=== PATIENT | female | born 1960 | race Caucasian/White ===

== ENCOUNTER 2017-11-28 16:05 | Emergency (ER) | payer MEDICAID, MEDICARE ==
[2017-11-28 16:31] VITALS: BP 144/79
[2017-11-28] MEDS ORDERED: Lidocaine 5% 700 MG Patch TOP ONE (17:17)
[2017-11-28] MEDS ORDERED: Ketorolac 30 MG/ML SDV IM ONE (17:17)
--- NOTE | 2017-11-28 17:23 | EDM.PDOC ---
ED HPI GENERAL MEDICAL PROBLEM - General Chief Complaint: Lower Extremity Injury/Pain Stated Complaint: HIP HURT Time Seen by Provider: 11/28/17 17:05 Source of Information: Reports: Patient, Old Records, RN History Limitations: Reports: No Limitations - History of Present Illness INITIAL COMMENTS - FREE TEXT/NARRATIVE: 57 yo female here with chronic R hip pain that is followed by Dr. Zendejas. She has a pain contract and is currently on Percocet. Also reports pain in the R knee and R shoulders. Can't take NSAID's due to her Lupus. Is scheduled to see Dr. Zendejas this next week. Is taking more of her Percocet than directed. Used crutches when she was a teenager. Pain is keeping her awake. Had hip X-rays last in , would like new ones today. 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 (see below) (Percocet) - Related Data Allergies Allergy/AdvReac Type Severity Reaction Status Date / Time amoxicillin Allergy Abdominal Verified 11/28/17 16:48 Pain hydroxychloroquine Allergy Cannot Verified 11/28/17 16:48 [From Plaquenil] Remember Penicillins Allergy Abdominal Verified 11/28/17 16:48 Pain Sulfa (Sulfonamide Allergy Cannot Verified 11/28/17 16:48 Antibiotics) Remember azithromycin [From Zithromax] AdvReac Intermediate Diarrhea Verified 11/28/17 16 :48 erythromycin base AdvReac Abdominal Verified 11/28/17 16:48 [Erythromycin Base] Pain Home Meds: Home Meds Acetaminophen/oxyCODONE [Percocet 325-5 MG] 2 tab PO QID #120 tablet 02/22/15 [ Rx] Spironolactone 50 mg PO DAILY 05/17/15 [History] Cyclobenzaprine [Flexeril] 10 mg PO TID 09/11/15 [History] Albuterol [Proventil HFA] 1 - 2 puff INH Q4HR PRN 11/23/17 [History] Fluticasone Propionate [Flonase] 1 spray NASBOTH DAILY PRN 11/23/17 [History] Lidocaine 5% [Lidoderm 5%] 1 patch TOP DAILY #7 patch 11/28/17 [Rx] predniSONE See Taper 11/28/17 [History] Past Medical History Respiratory History: Reports: Bronchitis, Recurrent Gastrointestinal History: Reports: Hepatitis 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: Musculoskeletal History: Reports: Back Pain, Chronic, Osteoporosis, SLE, Other ( See Below) Other Musculoskeletal History: R hip pain Neurological History: Reports: Brain Injury, Other (See Below) Other Neuro History: 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 Endocrine/Metabolic History: Reports: Other (See Below) Other Endocrine/Metabolic History: LUPUS Immunologic History: Reports: SLE Dermatologic History: Reports: None - Infectious Disease History Infectious Disease History: Reports: MRSA Other Infectious Disease History: Lupus induced hepatitis, per patient - Past Surgical History GI Surgical History: Reports: Cholecystectomy Social & Family History - Family History Cardiac: Reports: CAD, Heart Failure - Tobacco Use Smoking Status *Q: Never Smoker - Caffeine Use Caffeine Use: Reports: Soda Review of Systems - Review of Systems Review Of Systems: See Below Constitutional: Reports: No Symptoms Eyes: Reports: No Symptoms Ears: Reports: No Symptoms Nose: Reports: No Symptoms Mouth/Throat: Reports: No Symptoms Respiratory: Reports: No Symptoms GI/Abdominal: Reports: No Symptoms Musculoskeletal: Reports: Joint Pain (R knee and R shoulder, R hip). Denies: Joint Swelling Skin: Reports: No Symptoms Neurological: Reports: No Symptoms ED EXAM, GENERAL - Physical Exam Exam: See Below Exam Limited By: No Limitations General Appearance: Alert, WD/WN, No Apparent Distress Eye Exam: Bilateral Eye: Normal Inspection Ears: Normal External Exam, Normal Canal, Hearing Grossly Normal Ear Exam: Bilateral Ear: Auricle Normal, Canal Normal Nose: Normal Inspection, Normal Mucosa, No Blood Throat/Mouth: Normal Inspection, Normal Lips, Normal Voice, No Airway Compromise Head: Atraumatic, Normocephalic Neck: Normal Inspection Respiratory/Chest: No Respiratory Distress, Lungs Clear, Normal Breath Sounds Cardiovascular: Regular Rate, Rhythm Extremities: Normal Inspection, No Pedal Edema, Limited Range of Motion (R hip) . No: Pedal Edema, Increased Warmth, Redness Neurological: Alert, Oriented, CN II-XII Intact, Normal Cognition, No Motor/ Sensory Deficits Psychiatric: Normal Affect, Normal Mood Skin Exam: Warm, Dry, Intact, Normal Color, No Rash Course - Vital Signs Last Recorded V/S: Last Vital Signs Temp 37.3 C 11/28/17 16:56 Pulse 95 11/28/17 16:56 Resp 18 11/28/17 16:56 BP 144/79 H 11/28/17 16:56 Pulse Ox 96 11/28/17 16:56 - Orders/Labs/Meds Orders: Active Orders 24 hr Category Date Time Status Hip Min 2V or 3V w Pelvis Rt [CR] Stat Exams 11/28/17 17:45 Ordered DME for Discharge [COMM] Routine Oth 11/28/17 17:17 Ordered Meds: Medications Discontinued Medications Generic Name Dose Route Start Last Admin Trade Name Julio C PRN Reason Stop Dose Admin Ketorolac Tromethamine 30 mg 11/28/17 17:17 11/28/17 17:46 Toradol IM 11/28/17 17:18 30 mg ONETIME ONE Administration Lidocaine 700 mg 11/28/17 17:17 11/28/17 17:46 Lidoderm 5% TOP 11/28/17 17:18 700 mg ONETIME ONE Administration - Radiology Interpretation Free Text/Narrative:: R hip X-ray-degen changes. Departure - Departure Time of Disposition: 18:09 Disposition: Home, Self-Care 01 Condition: Good Clinical Impression: Hip pain, right, Arthritis of right hip - Discharge Information *PRESCRIPTION DRUG MONITORING PROGRAM REVIEWED*: No *COPY OF PRESCRIPTION DRUG MONITORING REPORT IN PATIENT MAYA: No Prescriptions: Lidocaine 5% [Lidoderm 5%] 1 patch TOP DAILY #7 patch Instructions: Osteoarthritis Referrals: Washington Zendejas MD [Primary Care Provider] - Forms: ED Department Discharge Additional Instructions: See orthopedics again to discuss hip replacement. Take Percocet and/or Lidoderm to treat your pain. See your doctor BARTOLO to discuss your pains. - My Orders Last 24 Hours: My Active Orders 11/28/17 17:17 DME for Discharge [COMM] Routine 11/28/17 17:45 Hip Min 2V or 3V w Pelvis Rt [CR] Stat - Assessment/Plan Last 24 Hours: My Active Orders 11/28/17 17:17 DME for Discharge [COMM] Routine 11/28/17 17:45 Hip Min 2V or 3V w Pelvis Rt [CR] Stat
--- NOTE | 2017-11-30 10:04 | CR ---
Hip Min 2V or 3V w Pelvis Rt CLINICAL HISTORY: Increasing hip pain FINDINGS: There is moderate deformity of the right the femoral head this is progressed significantly since the 2017 study. There is some acetabular spurring and some articular sclerosis also increased s iron prior study. Impression: Progressive deformity of the right femoral head. This is likely related to previous avascular necrosis and secondary cortical and subcortical collapse . Secondary osteoarthritic changes in the acetabulum also increased since prior study
== END 2017-11-28 18:59 | disposition home or self-care (01) ==
LOC: JP.ED 16:05
DX: M16.11 Unilateral primary osteoarthritis, right hip (principal); Z88.0 Allergy status to penicillin; Z88.2 Allergy status to sulfonamides; Z88.1 Allergy status to other antibiotic agents
CPT/HCPCS: 73502; 96372; 99284; A9270; J1885

== ENCOUNTER 2018-05-20 07:30 | Inpatient (IN) | payer MEDICARE ==
[2018-05-20] MEDS ORDERED: Scopolamine 1.5 MG Transdermal Patch TOP ONE (08:45)
[2018-05-20] MEDS ORDERED: Gabapentin 300 MG Cap PO ONE (08:45)
[2018-05-20] MEDS ORDERED: Acetaminophen 500 MG Tab PO ONE (09:00)
[2018-05-20] MEDS ORDERED: Albuterol/Ipratropium 3.0-0.5 MG/3 ML Neb Soln NEB ONE (09:28)
[2018-05-20] MEDS ORDERED: fentaNYL 100 MCG/2 ML SDV ONE (09:40)
[2018-05-20] MEDS ORDERED: Midazolam 1 MG/ML 2 ML SDV ONE ×2 (09:40→10:54)
[2018-05-20] MEDS ORDERED: Propofol 200 MG/20 ML SDV ONE (09:40)
[2018-05-20] MEDS ORDERED: ceFAZolin 1 GM in Premix Bag 1 BAG IV ONE (10:00)
[2018-05-20] MEDS: Sodium Chloride 0.9% 1,000 ML IV SCH ×2 (10:01→18:12)
[2018-05-20] MEDS ORDERED: Povidone-Iodine 10% Soln 118.25 ML Bottle ONE (10:16)
[2018-05-20] MEDS: Tranexamic Acid 550 MG in Sodium Chloride 0.9% 50 ML IV SCH ×2 (10:35→11:58)
[2018-05-20] MEDS ORDERED: Phenylephrine 1% 10 MG/ML SDV ONE (10:42)
[2018-05-20] MEDS ORDERED: Sodium Chloride 0.9% 10 ML ONE (10:42)
[2018-05-20] MEDS ORDERED: Lactated Ringers 1,000 ML ONE (10:54)
[2018-05-20] MEDS ORDERED: Acetaminophen/HYDROcodone 325-5 MG Tab PO PRN (11:57)
[2018-05-20] MEDS ORDERED: Acetaminophen/oxyCODONE 325-5 MG Tab PO PRN (12:12)
[2018-05-20] MEDS ORDERED: Fluticasone Propionate Nasal Spray 16 GM Bottle NASBOTH PRN (12:12)
[2018-05-20] MEDS ORDERED: Morphine 2 MG/ML Syringe IVPUSH PRN ×2 (12:19→12:41)
[2018-05-20] MEDS: Acetaminophen/oxyCODONE 325-5 MG Tab PO PRN ×2 (13:04→20:02)
[2018-05-20] MEDS: Cyclobenzaprine 10 MG Tab PO SCH ×2 (13:06→21:35)
[2018-05-20] MEDS ORDERED: ceFAZolin 1 GM in Premix Bag 1 BAG IV SCH (14:00)
[2018-05-20] MEDS ORDERED: Cyclobenzaprine 10 MG Tab PO SCH (14:00)
[2018-05-20] MEDS: Acetaminophen/HYDROcodone 325-5 MG Tab PO PRN ×3 (15:08→23:14)
[2018-05-20] MEDS: ceFAZolin 1 GM in Premix Bag 1 BAG IV SCH ×2 (16:41→23:15)
--- NOTE | 2018-05-20 17:35 | CRLCR ---
Indication: Postop. Technique: An AP view of the pelvis was obtained. Comparison: May 06, 2018. Findings: Postoperative changes of right hip arthroplasty are identified. Degenerative changes of the makah left hip bursa seen. Impression: Postoperative changes of a right hip arthroplasty. Dictated by Mckayla Boykin MD @ May 20 2018 5:32PM Signed by Dr. Mckayla Boykin @ May 20 2018 5:33PM
[2018-05-21] MEDS: Acetaminophen/oxyCODONE 325-5 MG Tab PO PRN ×4 (02:18→20:00)
[2018-05-21] MEDS: Sodium Chloride 0.9% 1,000 ML IV SCH (04:17)
[2018-05-21] MEDS: Acetaminophen/HYDROcodone 325-5 MG Tab PO PRN ×4 (05:28→19:24)
[2018-05-21] MEDS: ceFAZolin 1 GM in Premix Bag 1 BAG IV SCH ×2 (07:27→15:47)
[2018-05-21] MEDS: Cyclobenzaprine 10 MG Tab PO SCH ×4 (07:28→20:01)
[2018-05-21] MEDS ORDERED: Enoxaparin 30 MG/0.3 ML Syringe SUBCUT SCH (09:00)
[2018-05-21] MEDS: Enoxaparin 30 MG/0.3 ML Syringe SUBCUT SCH (09:06)
--- NOTE | 2018-05-21 10:23 | PCM.OPNOTE ---
- General Post-Op/Procedure Note Date of Surgery/Procedure: 05/20/18 Operative Procedure(s): Right total hip arthroplasty Findings: AVN R femoral head with deformity and articular flap Pre Op Diagnosis: AVN right femoral head. 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 She has had hip pain for approximately 1 year. X-ray 6 months ago revealed significant avascular necrosis with collapse of the superior femoral head. New X-rays show some progression of this. She has a deformity of the head and acetabulum due to long-standing weight bearing on the collapsed head. Right leg is approximately 1-1/2 cm shorter than the left. She now presents for right total hip arthroplasty. Risks, benefits and potential complications were discussed and she agrees to proceed. Procedure: After administration of IV antibiotic and epidural anesthesia the patient was placed in the lateral decubitus position and secured with the pegboard positioner. The right hip and leg were then prepped and draped in a sterile fashion. Incision was made over the greater trochanter carried down through the subcutaneous tissues and hemostasis obtained with electrocautery. The IT band was split in line with its fibers and retracted using the Charnley retractor. The leg was internally rotated and the short external rotators were taken off the greater trochanter with electrocautery. An Ethibond stitch was placed in the piriformis and used to retract medially. The capsule was then entered in a T fashion. Femoral head was then dislocated from the acetabulum. This showed severe deformity with collapse and a flap of articular cartilage superior. Retractors were placed about the acetabulum. Superior acetabular labrum was resected. The inferior stem was calcified and partially removed with a rongeur. Soft tissues were cleared from the central portion of the acetabulum using electrocautery and rongeur. Acetabulum was then sequentially reamed to a size 50 cup. The hip was irrigated and a Praveen continuum size 50 cup was press-fit into place with excellent purchase. Additional fixation was obtained with an acetabular screw. This was irrigated and a liner was then positioned into place. Attention was returned to the femur. A box osteotome was used to remove the lateral femoral neck cortex. An awl was placed down the canal. The canal was then sequentially broached to a size 10. A #10 M/L taper stem was then press- fit into place. Trial reduction was done with a size 0 and +3.5 mm neck length. The +3.5 provided good stability in flexion abduction internal rotation and restored limb length. Trial was removed. The taper was cleaned and the final femoral head was tapped onto the taper. The hip was reduced. Hip was again taken through range of motion and found to be stable. It was irrigated with a dilute solution of Betadine and saline. The capsule was then closed with #1 Ethibond. Short external rotators reattached to the greater trochanter. IT band was then closed in a running fashion and skin was then closed with 2-0 Vicryl and running 3-0 Monocryl. Steri-Strips were applied. Sterile dressing was then placed. Patient tolerated the procedure very well, there were no complications, she taken from the operating room in stable condition
--- NOTE | 2018-05-21 15:53 | PCM.CONS ---
H&P History of Present Illness - General Date of Service: 05/21/18 Admit Problem/Dx: Admission Diagnosis/Problem Admission Diagnosis/Problem Avascular necrosis of femoral head Source of Information: Patient, Provider, RN Notes Reviewed History Limitations: Reports: No Limitations - History of Present Illness Initial Comments - Free Text/Narative: Ms. Brownlee is a 57-year-old woman who I been asked to see by Dr. Nunez or evaluation of postoperative fever. She is status post total right hip arthroplasty which was done yesterday. This morning is been noted to have temperature elevation up to 101.8. Reports that she is feeling somewhat weak and lethargic but has no other specific symptoms of infection. Wound was reviewed today by Dr. Nunez and was showing no obvious evidence of infection. Urinalysis was obtained and is entirely normal. Chest x-ray is pending but she currently denies significant symptoms of shortness of breath, cough, or sputum production. She does have a known underlying history of reactive airway disease. right hip Pain Score (Numeric/FACES): 8 - Related Data Allergies/Adverse Reactions: Allergies Allergy/AdvReac Type Severity Reaction Status Date / Time amoxicillin Allergy Abdominal Verified 01/13/18 12:37 Pain hydroxychloroquine Allergy Cannot Verified 01/13/18 12:37 [From Plaquenil] Remember latex Allergy Rash Verified 05/20/18 09:41 Penicillins Allergy Abdominal Verified 01/13/18 12:37 Pain Sulfa (Sulfonamide Allergy Cannot Verified 01/13/18 12:37 Antibiotics) Remember azithromycin [From Zithromax] AdvReac Intermediate Diarrhea Verified 01/13/18 12 :37 erythromycin base AdvReac Abdominal Verified 01/13/18 12:37 [Erythromycin Base] Pain Home Medications: Home Meds Acetaminophen/oxyCODONE [Percocet 325-5 MG] 2 tab PO QID #120 tablet 02/22/15 [ Rx] Cyclobenzaprine [Flexeril] 10 mg PO TID 09/11/15 [History] Albuterol [Proventil HFA] 1 - 2 puff INH Q4HR PRN 11/23/17 [History] Fluticasone Propionate [Flonase] 2 spray NASBOTH DAILY PRN 11/23/17 [History] Lidocaine 5% [Lidoderm 5%] 1 patch TOP DAILY #7 patch 11/28/17 [Rx] Past Medical History Respiratory History: Reports: Bronchitis, Recurrent Gastrointestinal History: Reports: 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: Musculoskeletal History: Reports: Back Pain, Chronic, Osteoporosis, SLE, Other ( See Below) Other Musculoskeletal History: R hip pain right shoulder pain Neurological History: Reports: Brain Injury, Other (See Below) Other Neuro History: 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 Endocrine/Metabolic History: Reports: Other (See Below) Other Endocrine/Metabolic History: LUPUS Hematologic History: Reports: Blood Transfusion(s) Immunologic History: Reports: SLE Dermatologic History: Reports: None - Infectious Disease History Infectious Disease History: Reports: Chicken Pox, MRSA Other Infectious Disease History: Lupus induced hepatitis, per patient - Past Surgical History Respiratory Surgical History: Reports: None GI Surgical History: Reports: Cholecystectomy Neurological Surgical History: Reports: None Musculoskeletal Surgical History: Reports: None Social & Family History - Family History Family Medical History: Noncontributory Cardiac: Reports: CAD, Heart Failure - Tobacco Use Smoking Status *Q: Former Smoker Used Tobacco, but Quit: Yes Month/Year Tobacco Last Used: 1989 - Caffeine Use Caffeine Use: Reports: Coffee - Recreational Drug Use Recreational Drug Use: No H&P Review of Systems - Review of Systems: Review Of Systems: See Below General: Reports: Fever, Weakness. Denies: Chills, Night Sweats, Diaphoresis HEENT: Reports: No Symptoms Pulmonary: Reports: No Symptoms Cardiovascular: Reports: No Symptoms Gastrointestinal: Reports: No Symptoms Genitourinary: Reports: No Symptoms Musculoskeletal: Reports: Other (Right hip pain secondary to surgery) Skin: Reports: No Symptoms Psychiatric: Reports: No Symptoms Neurological: Reports: No Symptoms Hematologic/Lymphatic: Reports: No Symptoms Immunologic: Reports: No Symptoms Exam - Exam Exam: See Below - Vital Signs Vital Signs: Last Vital Signs Temp 101.6 F H 05/21/18 14:18 Pulse 104 H 05/21/18 14:18 Resp 18 05/21/18 14:18 BP 114/67 05/21/18 14:18 Pulse Ox 97 05/21/18 14:18 Weight: 131 lb 15.993 oz - Exam Quality Assessment: DVT Prophylaxis General: Alert, Oriented, Cooperative, Mild Distress Neck: Supple, Trachea Midline, +2 Carotid Pulse wo Bruit Lungs: Clear to Auscultation, Normal Respiratory Effort Cardiovascular: Regular Rate, Regular Rhythm, Normal S1, Normal S2 GI/Abdominal Exam: Soft, Non-Tender, No Organomegaly, No Distention Back Exam: Normal Inspection, Full Range of Motion Extremities: No Pedal Edema, Other (Surgical dressing in place over the right hip) Skin: Warm, Dry Neuro Extensive - Mental Status: Alert, Oriented x3, Normal Mood/Affect, Normal Cognition, Memory Intact - Patient Data Lab Results Last 24 hrs: Laboratory Results - last 24 hr 05/21/18 05/21/18 Range/Units 05:39 12:14 WBC 8.7 (4.5-11.0) K/uL RBC 3.91 (3.30-5.50) M/uL Hgb 11.7 L D (12.0-15.0) g/dL Hct 38.0 (36.0-48.0) % MCV 97 (80-98) fL MCH 30 (27-31) pg MCHC 31 L (32-36) % Plt Count 216 (150-400) K/uL Urine Color Yellow Urine Appearance Clear Urine pH 6.0 (4.5-8.0) Ur Specific [place] 1.005 L (1.008-1.030) Urine Protein Negative (NEGATIVE) mg/dL Urine Glucose (UA) Negative (NEGATIVE) mg/dL Urine Ketones Negative (NEGATIVE) mg/dL Urine Occult Blood Negative (NEGATIVE) Urine Nitrite Negative (NEGATIVE) Urine Bilirubin Negative (NEGATIVE) Urine Urobilinogen Normal (NORMAL) mg/dL Ur Leukocyte Esterase Negative (NEGATIVE) Urine RBC Not seen (0-5) Urine WBC Not seen (0-5) Ur Epithelial Cells Not seen Amorphous Sediment Few Urine Bacteria Not seen Urine Mucus Not seen Result Diagrams: 05/21/18 05:39 Consult PN Assessment/Plan Procedures: Procedures AGENT NOS ASSAY W/OPTIC (04/28/15) ASSAY OF CK (CPK) (02/15/15) ASSAY OF CREATININE (09/26/15) ASSAY OF FOLIC ACID RBC (01/25/14) ASSAY OF FOLIC ACID SERUM (02/15/15) ASSAY OF LACTIC ACID (05/17/15) ASSAY OF LIPASE (04/28/15) ASSAY OF MAGNESIUM (04/28/15) ASSAY OF SERUM POTASSIUM (02/27/15) ASSAY OF TROPONIN QUANT (02/15/15) ASSAY OF VANCOMYCIN (02/15/15) BLOOD CULTURE FOR BACTERIA (02/15/15) BLOOD GASES ANY COMBINATION (02/15/15) BLOOD TRANSFUSION SERVICE (02/15/15) BLOOD TYPING SEROLOGIC ABO (05/18/18) BLOOD TYPING SEROLOGIC RH(D) (05/18/18) C DIFF AMPLIFIED PROBE (04/28/15) C-REACTIVE PROTEIN (01/06/16) CHEST X-RAY 1 VIEW FRONTAL (02/15/15) CHEST X-RAY 2VW FRONTAL&LATL (05/17/15) COMPATIBILITY TEST ANTIGLOB (02/15/15) COMPATIBILITY TEST SPIN (02/15/15) COMPLETE CBC AUTOMATED (05/18/18) COMPLETE CBC W/AUTO DIFF WBC (01/06/16) COMPREHEN METABOLIC PANEL (05/18/18) CT ABD & PELV W/CONTRAST (09/26/15) CT PELVIS W/DYE (03/12/15) CULTURE AEROBIC IDENTIFY (02/15/15) CULTURE SCREEN ONLY (05/17/15) DRAIN/INJ JOINT/BURSA W/O US (01/13/18) ELECTROCARDIOGRAM REPORT (02/15/15) ELECTROCARDIOGRAM TRACING (02/15/15) EMERGENCY DEPT VISIT (11/28/17) EMERGENCY DEPT VISIT (05/17/15) EMERGENCY DEPT VISIT (04/28/15) EMERGENCY DEPT VISIT (04/28/15) EMERGENCY DEPT VISIT (03/01/14) EMERGENCY DEPT VISIT (03/01/14) EMERGENCY DEPT VISIT (01/25/14) HEMOGLOBIN (04/28/15) HYDRATE IV INFUSION ADD-ON (04/28/15) HYDRATION IV INFUSION INIT (01/06/16) IIV4 VACC NO PRSV 0.5 ML IM (02/15/15) INFLUENZA ASSAY W/OPTIC (05/17/15) INITIAL OBSERVATION CARE (04/28/15) LACTATE (LD) (LDH) ENZYME (02/15/15) LEUKOCYTE ASSESSMENT FECAL (02/15/15) MEASURE BLOOD OXYGEN LEVEL (02/15/15) METABOLIC PANEL TOTAL CA (05/17/15) MICROBE SUSCEPTIBLE PATRICIA (02/15/15) NEEDLE LOCALIZATION BY XRAY (01/13/18) OBSERVATION CARE DISCHARGE (04/28/15) OCCULT BLD FECES 1-3 TESTS (02/15/15) OT EVALUATION (02/15/15) PROTHROMBIN TIME (01/25/14) PT EVALUATION (05/17/15) RBC ANTIBODY SCREEN (05/18/18) RBC SED RATE NONAUTOMATED (04/28/15) ROUTINE VENIPUNCTURE (05/18/18) STOOL CULTR AEROBIC BACT EA (04/28/15) STREP A AG IA (05/17/15) SUBSEQUENT OBSERVATION CARE (04/28/15) THER/PROPH/DIAG INJ IV PUSH (09/11/15) THER/PROPH/DIAG INJ SC/IM (11/28/17) THER/PROPH/DIAG IV INF ADDON (01/25/14) THER/PROPH/DIAG IV INF INIT (01/25/14) THERAPEUTIC ACTIVITIES (05/17/15) THERAPEUTIC EXERCISES (05/17/15) THROMBOPLASTIN TIME PARTIAL (01/25/14) TX/PRO/DX INJ NEW DRUG ADDON (05/17/15) TX/PRO/DX INJ SAME DRUG WEIGH BOX TENDER (05/17/15) URINALYSIS AUTO W/O SCOPE (05/18/18) URINALYSIS AUTO W/SCOPE (05/17/15) URINE BACTERIA CULTURE (01/25/14) URINE CULTURE/COLONY COUNT (02/15/15) US EXAM ABDO BACK WALL GERARD (02/15/15) VITAMIN B-12 (02/15/15) WITHDRAWAL OF ARTERIAL BLOOD (02/15/15) X-RAY EXAM HIP UNI 2-3 VIEWS (05/06/18) X-RAY EXAM OF SHOULDER (05/06/18) X-RAY EXAM RIBS UNI 2 VIEWS (01/25/14) Problem List Initiated/Reviewed/Updated: Yes My Orders Last 24 Hours: My Active Orders 05/21/18 15:46 Chest 2V [CR] Urgent Plan: ASSESSMENT AND RECOMMENDATIONS POSTOPERATIVE FEVER-likely secondary to atelectasis, no obvious source of infection identified on evaluation thus far. White blood cell count this morning was within normal range and vital signs have otherwise been stable. Urinalysis is clear with no evidence of underlying infection. No obvious source of infection identified on history or physical examination. -Aggressive use of incentive spirometry -Monitor closely for recurrent fever or other evidence of infection -Chest x-ray pending STATUS POST TOTAL RIGHT HIP ARTHROPLASTY -Postoperative care per Dr. Nunez Requesting Provider: Dr. Nunez Date Consult Requested: 05/21/18 Reason for Consult: Postoperative fever Patient History Reviewed: Yes Admission H&P Reviewed: Yes
--- NOTE | 2018-05-21 17:56 | CRLCR ---
INDICATION: Postoperative fever TECHNIQUE: Chest 2 views. COMPARISON: None FINDINGS: Cardiovascular and mediastinum: Heart size and vasculature are normal in caliber and appearance. Mediastinum is within normal limits. Lungs and pleural spaces: Lungs are clear. No sign of infiltrate or mass. No sign of pleural effusion. No pneumothorax. Bones and soft tissues: No significant findings. Surgical clips noted in the right upper quadrant IMPRESSION: No sign of acute disease. Dictated by Mela Bruno MD @ May 21 2018 5:53PM Signed by Dr. Mela Bruno @ May 21 2018 5:54PM
[2018-05-21] MEDS ORDERED: Ibuprofen 400 MG Tab PO ONE (19:31)
--- NOTE | 2018-05-21 20:08 | PCM.SN ---
- Free Text/Narrative Note: time: 19:55, request for evaluation Mrs. Brownlee continues to have fever. S: Mrs. Brownlee reports worsen fever, generalized pain and bones ache. has Lupus, Right Hip surgery, rigth total hip. O: VS T 102.3 P 104 RR 16 B/P O2 sat 96% on room air Frail appearing female in no acute distress chest; lungs clear Abdomen; soft, bowel sounds positive, non-tender right Hip: dressing is dry, clean and intact extremities: no edema. generalized pain to touch or any movement A: fever. unknown source P: chest Xray at 5Pm; no infiltrates or acute disease will order labs: CBC, CMP, LACTIC ACID, CRP, BCX2 Meds: IV Levaquin 750mg every 24 hour decrease time interval Oxycodone 10mg every 4 hours. follow up after labs are completed.
[2018-05-21] MEDS: Levofloxacin/Dextrose 5%-Water 750 MG in Premix Bag 1 BAG IV SCH (21:19)
[2018-05-22] MEDS: Acetaminophen/oxyCODONE 325-5 MG Tab PO PRN ×3 (00:14→10:00)
[2018-05-22] MEDS: ceFAZolin 1 GM in Premix Bag 1 BAG IV SCH ×2 (00:14→08:34)
[2018-05-22] MEDS: Acetaminophen/HYDROcodone 325-5 MG Tab PO PRN ×2 (02:26→08:35)
[2018-05-22] MEDS: Sodium Chloride 0.9% 1,000 ML IV SCH (04:18)
[2018-05-22] MEDS: Cyclobenzaprine 10 MG Tab PO SCH ×3 (08:34→20:40)
[2018-05-22] MEDS: Enoxaparin 30 MG/0.3 ML Syringe SUBCUT SCH (08:34)
[2018-05-22] MEDS: Potassium Chloride 20 MEQ, Lidocaine 1% 2 ML in Sodium Chloride 0.9% 100 ML IV SCH ×2 (10:00→12:24)
[2018-05-22] MEDS ORDERED: Potassium Chloride 20 MEQ in Premix Bag 1 BAG IV SCH (10:00)
[2018-05-22] MEDS ORDERED: Potassium Chloride 20 MEQ Tab.ER PO ONE ×2 (10:00→14:00)
--- NOTE | 2018-05-22 13:35 | PCM.CONSN ---
- General Info Date of Service: 05/22/18 Subjective Update: Ms. Brownlee feels improved this morning with more energy and improved appetite. She is been up and walking with use of walker, reports pain control has been adequate. She did have recurrent temperature elevation last night, blood cultures were obtained, evaluation showed no obvious source of infection. She was empirically started on IV levofloxacin and has had no recurrent temperature elevations since then. Functional Status: Reports: Tolerating Diet, Ambulating, Urinating - Review of Systems General: Reports: Weakness. Denies: Fever, Chills Pulmonary: Reports: No Symptoms Cardiovascular: Reports: No Symptoms Gastrointestinal: Reports: No Symptoms Genitourinary: Reports: No Symptoms - Patient Data Vitals - Most Recent: Last Vital Signs Temp 98.5 F 05/22/18 10:40 Pulse 97 05/22/18 10:40 Resp 18 05/22/18 10:40 BP 121/58 L 05/22/18 10:40 Pulse Ox 100 05/22/18 10:40 Weight - Most Recent: 131 lb 15.993 oz I&O - Last 24 Hours: Intake & Output 05/21/18 05/22/18 05/22/18 22:59 06:59 14:59 Intake Total 1517 1026 400 Balance 1517 1026 400 Lab Results Last 24 Hours: Laboratory Results - last 24 hr 05/21/18 05/21/18 05/21/18 Range/Units 20:36 20:36 20:36 WBC 12.0 H (4.5-11.0) K/uL RBC 3.83 (3.30-5.50) M/uL Hgb 11.7 L (12.0-15.0) g/dL Hct 37.1 (36.0-48.0) % MCV 97 (80-98) fL MCH 31 (27-31) pg MCHC 32 (32-36) % Plt Count 179 (150-400) K/uL Neut % (Auto) 76 H (36-66) % Lymph % (Auto) 14 L (24-44) % [place] % (Auto) 10 H (2-6) % Eos % (Auto) 0 L (2-4) % Baso % (Auto) 0 (0-1) % Sodium 141 (140-148) mmol/L Potassium 3.6 (3.6-5.2) mmol/L Chloride 105 (100-108) mmol/L Carbon Dioxide 27 (21-32) mmol/L Anion Gap 9.4 (5.0-14.0) mmol/L BUN 6 L (7-18) mg/dL Creatinine 0.7 (0.6-1.0) mg/dL Est Cr Clr Drug Dosing 80.62 mL/min Estimated GFR (MDRD) > 60 (>60) Glucose 135 H (74-106) mg/dL Lactic Acid (0.4-2.0) mmol/L Calcium 8.6 (8.5-10.1) mg/dL Total Bilirubin 0.2 (0.2-1.0) mg/dL AST 18 (15-37) U/L ALT 18 (12-78) U/L Alkaline Phosphatase 64 (46-116) U/L C-Reactive Protein 12.08 H (0.0-0.3) mg/dL Total Protein 5.4 L (6.4-8.2) g/dL Albumin 2.6 L (3.4-5.0) g/dL Globulin 2.8 (2.3-3.5) g/dL Albumin/Globulin Ratio 0.9 L (1.2-2.2) 05/21/18 05/22/18 05/22/18 Range/Units 20:36 08:47 08:47 WBC 8.1 (4.5-11.0) K/uL RBC 3.86 (3.30-5.50) M/uL Hgb 11.9 L (12.0-15.0) g/dL Hct 38.0 (36.0-48.0) % MCV 98 (80-98) fL MCH 31 (27-31) pg MCHC 31 L (32-36) % Plt Count 154 (150-400) K/uL Neut % (Auto) 76 H (36-66) % Lymph % (Auto) 13 L (24-44) % [place] % (Auto) 10 H (2-6) % Eos % (Auto) 1 L (2-4) % Baso % (Auto) 0 (0-1) % Sodium 143 (140-148) mmol/L Potassium 2.8 L* (3.6-5.2) mmol/L Chloride 106 (100-108) mmol/L Carbon Dioxide 26 (21-32) mmol/L Anion Gap 13.8 (5.0-14.0) mmol/L BUN 7 (7-18) mg/dL Creatinine 0.7 (0.6-1.0) mg/dL Est Cr Clr Drug Dosing 80.62 mL/min Estimated GFR (MDRD) > 60 (>60) Glucose 87 (74-106) mg/dL Lactic Acid 1.6 (0.4-2.0) mmol/L Calcium 8.5 (8.5-10.1) mg/dL Total Bilirubin (0.2-1.0) mg/dL AST (15-37) U/L ALT (12-78) U/L Alkaline Phosphatase (46-116) U/L C-Reactive Protein (0.0-0.3) mg/dL Total Protein (6.4-8.2) g/dL Albumin (3.4-5.0) g/dL Globulin (2.3-3.5) g/dL Albumin/Globulin Ratio (1.2-2.2) Med Orders - Current: Current Medications Acetaminophen (Tylenol) 650 mg PO Q4H PRN PRN Reason: Pain/Fever Hydrocodone Bitart/Acetaminophen ([place] 325-5 Mg) 1 tab PO Q3H PRN PRN Reason: FOR MODERATE PAIN Last Admin: 05/22/18 08:35 Dose: 1 tab Cyclobenzaprine HCl (Flexeril) 10 mg PO TID [facility] Last Admin: 05/22/18 08:34 Dose: 10 mg Docusate Sodium (Colace) 100 mg PO BID PRN PRN Reason: Constipation Enoxaparin Sodium (Lovenox) 30 mg SUBCUT DAILY [facility] Last Admin: 05/22/18 08:34 Dose: 30 mg Fluticasone Propionate (Flonase) 0 gm NASBOTH DAILY PRN PRN Reason: Allergies Sodium Chloride (Normal Saline) 1,000 mls @ 100 mls/hr IV ASDIRECTED [facility] Last Admin: 05/22/18 04:18 Dose: 100 mls/hr Levofloxacin/Dextrose 750 mg/ (Premix) 150 mls @ 100 mls/hr IV Q24H [facility] Last Admin: 05/21/18 21:19 Dose: 100 mls/hr Potassium Chloride 20 meq/Lidocaine HCl 2 ml/ Sodium Chloride 112 mls @ 56 mls/ hr IV Q2H [facility] Stop: 05/22/18 13:59 Last Admin: 05/22/18 12:24 Dose: 56 mls/hr Morphine Sulfate (Morphine) 2 mg IVPUSH Q4H PRN PRN Reason: Pain (severe 7-10) Oxycodone/Acetaminophen (Percocet 325-5 Mg) 2 tab PO Q4H PRN PRN Reason: Pain (severe 7-10) Last Admin: 05/22/18 10:00 Dose: 2 tab Potassium Chloride (Klor-Con M20) 40 meq PO ONETIME ONE Stop: 05/22/18 13:31 Discontinued Medications Acetaminophen (Tylenol Extra Strength) 1,000 mg PO ONETIME ONE Stop: 05/20/18 09:01 Last Admin: 05/20/18 09:25 Dose: 1,000 mg Hydrocodone Bitart/Acetaminophen ([place] 325-5 Mg) 1 tab PO Q3H PRN PRN Reason: Pain Albuterol/Ipratropium (Duoneb 3.0-0.5 Mg/3 Ml) 3 ml NEB ONETIME ONE Stop: 05/20/18 09:29 Last Admin: 05/20/18 10:05 Dose: 3 ml Cyclobenzaprine HCl (Flexeril) 10 mg PO TID [facility] Enoxaparin Sodium (Lovenox) 30 mg SUBCUT DAILY [facility] Fentanyl (Sublimaze) Confirm Administered Dose 100 mcg .ROUTE .STK-MED ONE Stop: 05/20/18 09:41 Gabapentin (Neurontin) 300 mg PO ONETIME ONE Stop: 05/20/18 08:46 Last Admin: 05/20/18 09:25 Dose: 300 mg Cefazolin Sodium/Dextrose 1 gm (/ Premix) 50 mls @ 100 mls/hr IV ONETIME ONE Stop: 05/20/18 10:29 Last Admin: 05/20/18 10:11 Dose: 100 mls/hr Tranexamic Acid 550 mg/ Sodium (Chloride) 55.5 mls @ 222 mls/hr IV Q3H [facility] Stop: 05/20/18 12:44 Last Admin: 05/20/18 11:58 Dose: 222 mls/hr Sodium Chloride (Normal Saline) Confirm Administered Dose 10 mls @ as directed .ROUTE .STK-MED ONE Stop: 05/20/18 10:43 Lactated Ringer's (Ringers, Lactated) Confirm Administered Dose 1,000 mls @ as directed .ROUTE .STK-MED ONE Stop: 05/20/18 10:55 Cefazolin Sodium/Dextrose 1 gm (/ Premix) 50 mls @ 100 mls/hr IV Q8HR [facility] Stop: 05/22/18 06:29 Cefazolin Sodium/Dextrose 1 gm (/ Premix) 50 mls @ 100 mls/hr IV Q8H [facility] Stop: 05/22/18 08:29 Last Admin: 05/22/18 08:34 Dose: 100 mls/hr Ibuprofen (Motrin) 400 mg PO ONETIME ONE Stop: 05/21/18 19:32 Last Admin: 05/21/18 20:00 Dose: 400 mg Midazolam HCl (Versed 1 Mg/Ml) Confirm Administered Dose 2 mg .ROUTE .STK-MED ONE Stop: 05/20/18 09:41 Midazolam HCl (Versed 1 Mg/Ml) Confirm Administered Dose 2 mg .ROUTE .STK-MED ONE Stop: 05/20/18 10:55 Morphine Sulfate (Morphine) 2 mg IVPUSH Q4H PRN PRN Reason: Pain (severe 7-10) Oxycodone/Acetaminophen (Percocet 325-5 Mg) 2 tab PO Q6H PRN PRN Reason: Pain (severe 7-10) Oxycodone/Acetaminophen (Percocet 325-5 Mg) 2 tab PO Q6H PRN PRN Reason: Pain (severe 7-10) Last Admin: 05/21/18 20:00 Dose: 2 tab Phenylephrine HCl (Emanuel-Synephrine) Confirm Administered Dose 10 mg .ROUTE .STK- MED ONE Stop: 05/20/18 10:43 Potassium Chloride (Klor-Con M20) 40 meq PO ONETIME ONE Stop: 05/22/18 10:01 Last Admin: 05/22/18 10:00 Dose: 40 meq Povidone Iodine (Betadine 10% Soln) Confirm Administered Dose 1 ml .ROUTE .STK- MED ONE Stop: 05/20/18 10:17 Last Admin: 05/20/18 10:54 Dose: 40 ml Propofol (Diprivan 20 Ml) Confirm Administered Dose 200 mg .ROUTE .STK-MED ONE Stop: 05/20/18 09:41 Scopolamine (Transderm-Scop) 1.5 mg TOP ONETIME ONE Stop: 05/20/18 08:46 Last Admin: 05/20/18 09:26 Dose: 1.5 mg - Exam Quality Assessment: DVT Prophylaxis General: Alert, Oriented, Cooperative, Mild Distress Lungs: Clear to Auscultation, Normal Respiratory Effort Cardiovascular: Regular Rate, Regular Rhythm, No Murmurs GI/Abdominal Exam: Soft, Non-Tender, No Organomegaly, No Distention Extremities: No Pedal Edema Consult PN Assessment/Plan Procedures: Procedures AGENT NOS ASSAY W/OPTIC (04/28/15) ASSAY OF CK (CPK) (02/15/15) ASSAY OF CREATININE (09/26/15) ASSAY OF FOLIC ACID RBC (01/25/14) ASSAY OF FOLIC ACID SERUM (02/15/15) ASSAY OF LACTIC ACID (05/17/15) ASSAY OF LIPASE (04/28/15) ASSAY OF MAGNESIUM (04/28/15) ASSAY OF SERUM POTASSIUM (02/27/15) ASSAY OF TROPONIN QUANT (02/15/15) ASSAY OF VANCOMYCIN (02/15/15) BLOOD CULTURE FOR BACTERIA (02/15/15) BLOOD GASES ANY COMBINATION (02/15/15) BLOOD TRANSFUSION SERVICE (02/15/15) BLOOD TYPING SEROLOGIC ABO (05/18/18) BLOOD TYPING SEROLOGIC RH(D) (05/18/18) C DIFF AMPLIFIED PROBE (04/28/15) C-REACTIVE PROTEIN (01/06/16) CHEST X-RAY 1 VIEW FRONTAL (02/15/15) CHEST X-RAY 2VW FRONTAL&LATL (05/17/15) COMPATIBILITY TEST ANTIGLOB (02/15/15) COMPATIBILITY TEST SPIN (02/15/15) COMPLETE CBC AUTOMATED (05/18/18) COMPLETE CBC W/AUTO DIFF WBC (01/06/16) COMPREHEN METABOLIC PANEL (05/18/18) CT ABD & PELV W/CONTRAST (09/26/15) CT PELVIS W/DYE (03/12/15) CULTURE AEROBIC IDENTIFY (02/15/15) CULTURE SCREEN ONLY (05/17/15) DRAIN/INJ JOINT/BURSA W/O US (01/13/18) ELECTROCARDIOGRAM REPORT (02/15/15) ELECTROCARDIOGRAM TRACING (02/15/15) EMERGENCY DEPT VISIT (11/28/17) EMERGENCY DEPT VISIT (05/17/15) EMERGENCY DEPT VISIT (04/28/15) EMERGENCY DEPT VISIT (04/28/15) EMERGENCY DEPT VISIT (03/01/14) EMERGENCY DEPT VISIT (03/01/14) EMERGENCY DEPT VISIT (01/25/14) HEMOGLOBIN (04/28/15) HYDRATE IV INFUSION ADD-ON (04/28/15) HYDRATION IV INFUSION INIT (01/06/16) IIV4 VACC NO PRSV 0.5 ML IM (02/15/15) INFLUENZA ASSAY W/OPTIC (05/17/15) INITIAL OBSERVATION CARE (04/28/15) LACTATE (LD) (LDH) ENZYME (02/15/15) LEUKOCYTE ASSESSMENT FECAL (02/15/15) MEASURE BLOOD OXYGEN LEVEL (02/15/15) METABOLIC PANEL TOTAL CA (05/17/15) MICROBE SUSCEPTIBLE PATRICIA (02/15/15) NEEDLE LOCALIZATION BY XRAY (01/13/18) OBSERVATION CARE DISCHARGE (04/28/15) OCCULT BLD FECES 1-3 TESTS (02/15/15) OT EVALUATION (02/15/15) PROTHROMBIN TIME (01/25/14) PT EVALUATION (05/17/15) RBC ANTIBODY SCREEN (05/18/18) RBC SED RATE NONAUTOMATED (04/28/15) ROUTINE VENIPUNCTURE (05/18/18) STOOL CULTR AEROBIC BACT EA (04/28/15) STREP A AG IA (05/17/15) SUBSEQUENT OBSERVATION CARE (04/28/15) THER/PROPH/DIAG INJ IV PUSH (09/11/15) THER/PROPH/DIAG INJ SC/IM (11/28/17) THER/PROPH/DIAG IV INF ADDON (01/25/14) THER/PROPH/DIAG IV INF INIT (01/25/14) THERAPEUTIC ACTIVITIES (05/17/15) THERAPEUTIC EXERCISES (05/17/15) THROMBOPLASTIN TIME PARTIAL (01/25/14) TX/PRO/DX INJ NEW DRUG ADDON (05/17/15) TX/PRO/DX INJ 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/15) URINALYSIS AUTO W/O SCOPE (05/18/18) URINALYSIS AUTO W/SCOPE (05/17/15) URINE BACTERIA CULTURE (01/25/14) URINE CULTURE/COLONY COUNT (02/15/15) US EXAM ABDO BACK WALL GERARD (02/15/15) VITAMIN B-12 (02/15/15) WITHDRAWAL OF ARTERIAL BLOOD (02/15/15) X-RAY EXAM HIP UNI 2-3 VIEWS (05/06/18) X-RAY EXAM OF SHOULDER (05/06/18) X-RAY EXAM RIBS UNI 2 VIEWS (01/25/14) Problem List Initiated/Reviewed/Updated: Yes My Orders Last 24 Hours: My Active Orders 05/22/18 10:00 Potassium Chloride 20 meq Lidocaine 1% [Xylocaine 1%] 2 ml Sodium Chloride 0.9 % [Normal Saline] 100 ml IV Q2H 05/22/18 13:30 Potassium Chloride [Klor-Con M20] 40 meq PO ONETIME ONE 05/22/18 17:00 POTASSIUM,K [CHEM] Stat 05/23/18 05:00 BASIC METABOLIC PANEL,BMP [CHEM] Timed CBC WITH AUTO DIFF [HEME] Timed MAGNESIUM [CHEM] Timed Plan: ASSESSMENT AND RECOMMENDATIONS POSTOPERATIVE FEVER-likely secondary to atelectasis, no obvious source of infection identified on evaluation thus far. Current temperature elevation last night, no fever since then, blood cell count this morning is within normal range. Feels better this morning with more energy and improved appetite. -Aggressive use of incentive spirometry -Continue levofloxacin one additional day, if no recurrent temperature elevation consider discontinuation tomorrow -Chest x-ray pending Hypokalemia -Aggressive IV and oral potassium replacement this morning -Recheck potassium level later today and again in a.m. STATUS POST TOTAL RIGHT HIP ARTHROPLASTY -Postoperative care per Dr. Nunez
--- NOTE | 2018-05-22 14:00 | PCM.SURGPN ---
- General Info Date of Service: 05/21/18 Date of Surgery/Procedure: 05/20/18 POD#: 1 Post-Op Diagnosis: S/P NANCY right hip Functional Status: Reports: Tolerating Diet - Review of Systems General: Reports: Fever Pulmonary: Reports: No Symptoms Cardiovascular: Reports: No Symptoms Neurological: Reports: No Symptoms Psychiatric: Reports: No Symptoms - Patient Data Vitals - Most Recent: Last Vital Signs Temp 36.9 C 05/22/18 10:40 Pulse 97 05/22/18 10:40 Resp 18 05/22/18 10:40 BP 121/58 L 05/22/18 10:40 Pulse Ox 100 05/22/18 10:40 Weight - Most Recent: 59.874 kg I&O - Last 24 Hours: Intake & Output 05/21/18 05/22/18 05/22/18 22:59 06:59 14:59 Intake Total 1517 1026 400 Balance 1517 1026 400 Lab Results Last 24 Hrs: Laboratory Results - last 24 hr 05/21/18 05/21/18 05/21/18 Range/Units 20:36 20:36 20:36 WBC 12.0 H (4.5-11.0) K/uL RBC 3.83 (3.30-5.50) M/uL Hgb 11.7 L (12.0-15.0) g/dL Hct 37.1 (36.0-48.0) % MCV 97 (80-98) fL MCH 31 (27-31) pg MCHC 32 (32-36) % Plt Count 179 (150-400) K/uL Neut % (Auto) 76 H (36-66) % Lymph % (Auto) 14 L (24-44) % [place] % (Auto) 10 H (2-6) % Eos % (Auto) 0 L (2-4) % Baso % (Auto) 0 (0-1) % Sodium 141 (140-148) mmol/L Potassium 3.6 (3.6-5.2) mmol/L Chloride 105 (100-108) mmol/L Carbon Dioxide 27 (21-32) mmol/L Anion Gap 9.4 (5.0-14.0) mmol/L BUN 6 L (7-18) mg/dL Creatinine 0.7 (0.6-1.0) mg/dL Est Cr Clr Drug Dosing 80.62 mL/min Estimated GFR (MDRD) > 60 (>60) Glucose 135 H (74-106) mg/dL Lactic Acid (0.4-2.0) mmol/L Calcium 8.6 (8.5-10.1) mg/dL Total Bilirubin 0.2 (0.2-1.0) mg/dL AST 18 (15-37) U/L ALT 18 (12-78) U/L Alkaline Phosphatase 64 (46-116) U/L C-Reactive Protein 12.08 H (0.0-0.3) mg/dL Total Protein 5.4 L (6.4-8.2) g/dL Albumin 2.6 L (3.4-5.0) g/dL Globulin 2.8 (2.3-3.5) g/dL Albumin/Globulin Ratio 0.9 L (1.2-2.2) 05/21/18 05/22/18 05/22/18 Range/Units 20:36 08:47 08:47 WBC 8.1 (4.5-11.0) K/uL RBC 3.86 (3.30-5.50) M/uL Hgb 11.9 L (12.0-15.0) g/dL Hct 38.0 (36.0-48.0) % MCV 98 (80-98) fL MCH 31 (27-31) pg MCHC 31 L (32-36) % Plt Count 154 (150-400) K/uL Neut % (Auto) 76 H (36-66) % Lymph % (Auto) 13 L (24-44) % [place] % (Auto) 10 H (2-6) % Eos % (Auto) 1 L (2-4) % Baso % (Auto) 0 (0-1) % Sodium 143 (140-148) mmol/L Potassium 2.8 L* (3.6-5.2) mmol/L Chloride 106 (100-108) mmol/L Carbon Dioxide 26 (21-32) mmol/L Anion Gap 13.8 (5.0-14.0) mmol/L BUN 7 (7-18) mg/dL Creatinine 0.7 (0.6-1.0) mg/dL Est Cr Clr Drug Dosing 80.62 mL/min Estimated GFR (MDRD) > 60 (>60) Glucose 87 (74-106) mg/dL Lactic Acid 1.6 (0.4-2.0) mmol/L Calcium 8.5 (8.5-10.1) mg/dL Total Bilirubin (0.2-1.0) mg/dL AST (15-37) U/L ALT (12-78) U/L Alkaline Phosphatase (46-116) U/L C-Reactive Protein (0.0-0.3) mg/dL Total Protein (6.4-8.2) g/dL Albumin (3.4-5.0) g/dL Globulin (2.3-3.5) g/dL Albumin/Globulin Ratio (1.2-2.2) Med Orders - Current: Current Medications Acetaminophen (Tylenol) 650 mg PO Q4H PRN PRN Reason: Pain/Fever Cyclobenzaprine HCl (Flexeril) 10 mg PO TID [facility] Last Admin: 05/22/18 08:34 Dose: 10 mg Docusate Sodium (Colace) 100 mg PO BID PRN PRN Reason: Constipation Enoxaparin Sodium (Lovenox) 30 mg SUBCUT DAILY [facility] Last Admin: 05/22/18 08:34 Dose: 30 mg Fluticasone Propionate (Flonase) 0 gm NASBOTH DAILY PRN PRN Reason: Allergies Sodium Chloride (Normal Saline) 1,000 mls @ 100 mls/hr IV ASDIRECTED [facility] Last Admin: 05/22/18 04:18 Dose: 100 mls/hr Levofloxacin/Dextrose 750 mg/ (Premix) 150 mls @ 100 mls/hr IV Q24H [facility] Last Admin: 05/21/18 21:19 Dose: 100 mls/hr Potassium Chloride 20 meq/Lidocaine HCl 2 ml/ Sodium Chloride 112 mls @ 56 mls/ hr IV Q2H [facility] Stop: 05/22/18 13:59 Last Admin: 05/22/18 12:24 Dose: 56 mls/hr Morphine Sulfate (Morphine) 2 mg IVPUSH Q4H PRN PRN Reason: Pain (severe 7-10) Oxycodone HCl (Oxycodone) 10 mg PO Q4H PRN PRN Reason: Pain Potassium Chloride (Klor-Con M20) 40 meq PO ONETIME ONE Stop: 05/22/18 14:01 Discontinued Medications Acetaminophen (Tylenol Extra Strength) 1,000 mg PO ONETIME ONE Stop: 05/20/18 09:01 Last Admin: 05/20/18 09:25 Dose: 1,000 mg Hydrocodone Bitart/Acetaminophen ([place] 325-5 Mg) 1 tab PO Q3H PRN PRN Reason: Pain Hydrocodone Bitart/Acetaminophen ([place] 325-5 Mg) 1 tab PO Q3H PRN PRN Reason: FOR MODERATE PAIN Last Admin: 05/22/18 08:35 Dose: 1 tab Albuterol/Ipratropium (Duoneb 3.0-0.5 Mg/3 Ml) 3 ml NEB ONETIME ONE Stop: 05/20/18 09:29 Last Admin: 05/20/18 10:05 Dose: 3 ml Cyclobenzaprine HCl (Flexeril) 10 mg PO TID [facility] Enoxaparin Sodium (Lovenox) 30 mg SUBCUT DAILY [facility] Fentanyl (Sublimaze) Confirm Administered Dose 100 mcg .ROUTE .STK-MED ONE Stop: 05/20/18 09:41 Gabapentin (Neurontin) 300 mg PO ONETIME ONE Stop: 05/20/18 08:46 Last Admin: 05/20/18 09:25 Dose: 300 mg Cefazolin Sodium/Dextrose 1 gm (/ Premix) 50 mls @ 100 mls/hr IV ONETIME ONE Stop: 05/20/18 10:29 Last Admin: 05/20/18 10:11 Dose: 100 mls/hr Tranexamic Acid 550 mg/ Sodium (Chloride) 55.5 mls @ 222 mls/hr IV Q3H [facility] Stop: 05/20/18 12:44 Last Admin: 05/20/18 11:58 Dose: 222 mls/hr Sodium Chloride (Normal Saline) Confirm Administered Dose 10 mls @ as directed .ROUTE .STK-MED ONE Stop: 05/20/18 10:43 Lactated Ringer's (Ringers, Lactated) Confirm Administered Dose 1,000 mls @ as directed .ROUTE .STK-MED ONE Stop: 05/20/18 10:55 Cefazolin Sodium/Dextrose 1 gm (/ Premix) 50 mls @ 100 mls/hr IV Q8HR [facility] Stop: 05/22/18 06:29 Cefazolin Sodium/Dextrose 1 gm (/ Premix) 50 mls @ 100 mls/hr IV Q8H [facility] Stop: 05/22/18 08:29 Last Admin: 05/22/18 08:34 Dose: 100 mls/hr Ibuprofen (Motrin) 400 mg PO ONETIME ONE Stop: 05/21/18 19:32 Last Admin: 05/21/18 20:00 Dose: 400 mg Midazolam HCl (Versed 1 Mg/Ml) Confirm Administered Dose 2 mg .ROUTE .STK-MED ONE Stop: 05/20/18 09:41 Midazolam HCl (Versed 1 Mg/Ml) Confirm Administered Dose 2 mg .ROUTE .STK-MED ONE Stop: 05/20/18 10:55 Morphine Sulfate (Morphine) 2 mg IVPUSH Q4H PRN PRN Reason: Pain (severe 7-10) Oxycodone/Acetaminophen (Percocet 325-5 Mg) 2 tab PO Q6H PRN PRN Reason: Pain (severe 7-10) Oxycodone/Acetaminophen (Percocet 325-5 Mg) 2 tab PO Q6H PRN PRN Reason: Pain (severe 7-10) Last Admin: 05/21/18 20:00 Dose: 2 tab Oxycodone/Acetaminophen (Percocet 325-5 Mg) 2 tab PO Q4H PRN PRN Reason: Pain (severe 7-10) Last Admin: 05/22/18 10:00 Dose: 2 tab Phenylephrine HCl (Emanuel-Synephrine) Confirm Administered Dose 10 mg .ROUTE .STK- MED ONE Stop: 05/20/18 10:43 Potassium Chloride (Klor-Con M20) 40 meq PO ONETIME ONE Stop: 05/22/18 10:01 Last Admin: 05/22/18 10:00 Dose: 40 meq Povidone Iodine (Betadine 10% Soln) Confirm Administered Dose 1 ml .ROUTE .STK- MED ONE Stop: 05/20/18 10:17 Last Admin: 05/20/18 10:54 Dose: 40 ml Propofol (Diprivan 20 Ml) Confirm Administered Dose 200 mg .ROUTE .STK-MED ONE Stop: 05/20/18 09:41 Scopolamine (Transderm-Scop) 1.5 mg TOP ONETIME ONE Stop: 05/20/18 08:46 Last Admin: 05/20/18 09:26 Dose: 1.5 mg - Exam Wound/Incisions: Dressing Dry and Intact General: Alert, Oriented HEENT: Pupils Equal Neck: Supple Lungs: Clear to Auscultation, Normal Respiratory Effort Cardiovascular: Regular Rate, Regular Rhythm GI/Abdominal Exam: Normal Bowel Sounds, Soft, Non-Tender, No Organomegaly, No Distention, No Abnormal Bruit, No Mass, Pelvis Stable Neurological: No New Focal Deficit Psy/Mental Status: Alert, Normal Affect, Normal Mood Physical Findings Comment:: No swelling in feet or legs, Hanane's neg. Up in chair. - Problem List & Annotations (1) Avascular necrosis of femoral head SNOMED Code(s): 598574517 Code(s): M87.059 - IDIOPATHIC ASEPTIC NECROSIS OF UNSPECIFIED FEMUR Status : Chronic Current Visit: No (2) Fever SNOMED Code(s): 490207484 Code(s): R50.9 - FEVER, UNSPECIFIED Status: Acute Current Visit: Yes - Problem List Review Problem List Initiated/Reviewed/Updated: Yes - My Orders Last 24 Hours: Active Orders 24 hr Category Date Time Status BASIC METABOLIC PANEL,BMP [CHEM] Timed Lab 05/23/18 05:00 Ordered CBC WITH AUTO DIFF [HEME] Timed Lab 05/23/18 05:00 Ordered CULTURE BLOOD [BC] Urgent Lab 05/21/18 20:20 Received CULTURE BLOOD [BC] Urgent Lab 05/21/18 20:36 Received MAGNESIUM [CHEM] Timed Lab 05/23/18 05:00 Ordered POTASSIUM,K [CHEM] Stat Lab 05/22/18 17:00 Ordered Docusate Sodium [Colace] Med 05/22/18 05:04 Active 100 mg PO BID PRN Levofloxacin/Dextrose 5%-Water [Levaquin in D5W 750 MG/ Med 05/21/18 20:00 Active 150 ML] 750 mg Premix Bag 1 bag IV Q24H Potassium Chloride 20 meq Med 05/22/18 10:00 Active Lidocaine 1% [Xylocaine 1%] 2 ml Sodium Chloride 0.9% [Normal Saline] 100 ml IV Q2H Potassium Chloride [Klor-Con M20] Med 05/22/18 14:00 Once 40 meq PO ONETIME ONE oxyCODONE Med 05/22/18 13:36 Active 10 mg PO Q4H PRN Blood Culture x2 Reflex Set [OM.PC] Urgent Oth 05/21/18 19:56 Ordered Medication Orders Acetaminophen (Tylenol) 650 mg PO Q4H PRN PRN Reason: Pain/Fever Cyclobenzaprine HCl (Flexeril) 10 mg PO TID [facility] Last Admin: 05/22/18 08:34 Dose: 10 mg Admin: 05/21/18 20:01 Dose: 10 mg Admin: 05/21/18 14:12 Dose: 10 mg Admin: 05/21/18 08:14 Dose: Admin: 05/21/18 07:28 Dose: 10 mg Admin: 05/20/18 21:35 Dose: 10 mg Admin: 05/20/18 13:06 Dose: Not Given Docusate Sodium (Colace) 100 mg PO BID PRN PRN Reason: Constipation Enoxaparin Sodium (Lovenox) 30 mg SUBCUT DAILY [facility] Last Admin: 05/22/18 08:34 Dose: 30 mg Admin: 05/21/18 09:06 Dose: 30 mg Fluticasone Propionate (Flonase) 0 gm NASBOTH DAILY PRN PRN Reason: Allergies Sodium Chloride (Normal Saline) 1,000 mls @ 100 mls/hr IV ASDIRECTED [facility] Last Admin: 05/22/18 04:18 Dose: 100 mls/hr Infusion: 05/21/18 14:17 Dose: 100 mls/hr Admin: 05/21/18 04:17 Dose: 100 mls/hr Infusion: 05/21/18 04:12 Dose: 100 mls/hr Admin: 05/20/18 18:12 Dose: 100 mls/hr Infusion: 05/20/18 18:12 Dose: 100 mls/hr Admin: 05/20/18 10:01 Dose: 100 mls/hr Levofloxacin/Dextrose 750 mg/ (Premix) 150 mls @ 100 mls/hr IV Q24H [facility] Last Admin: 05/21/18 21:19 Dose: 100 mls/hr Potassium Chloride 20 meq/Lidocaine HCl 2 ml/ Sodium Chloride 112 mls @ 56 mls/ hr IV Q2H [facility] Stop: 05/22/18 13:59 Last Admin: 05/22/18 12:24 Dose: 56 mls/hr Infusion: 05/22/18 12:00 Dose: 56 mls/hr Admin: 05/22/18 10:00 Dose: 56 mls/hr Morphine Sulfate (Morphine) 2 mg IVPUSH Q4H PRN PRN Reason: Pain (severe 7-10) Oxycodone HCl (Oxycodone) 10 mg PO Q4H PRN PRN Reason: Pain Potassium Chloride (Klor-Con M20) 40 meq PO ONETIME ONE Stop: 05/22/18 14:01 - Assessment Assessment (Free Text/Narrative):: Low grade fever. Encourged Incentive spirometry and activity. Will send UA and D/C [place]. Watch temp. Will ask Medicine to see. - Plan Plan (Free Text/Narrative):: Hospitalist consult entered. Up with PT/OT
--- NOTE | 2018-05-22 14:35 | PCM.SURGPN ---
- General Info Date of Service: 05/22/18 POD#: 2 Functional Status: Reports: Pain Controlled, Tolerating Diet, Ambulating, Urinating, Incentive Spirometry - Review of Systems General: Reports: Other (No fever this AM) Pulmonary: Reports: No Symptoms Cardiovascular: Reports: No Symptoms Gastrointestinal: Reports: No Symptoms Genitourinary: Reports: No Symptoms Neurological: Reports: No Symptoms Psychiatric: Reports: No Symptoms - Patient Data Vitals - Most Recent: Last Vital Signs Temp 36.9 C 05/22/18 10:40 Pulse 97 05/22/18 10:40 Resp 18 05/22/18 10:40 BP 121/58 L 05/22/18 10:40 Pulse Ox 100 05/22/18 10:40 Weight - Most Recent: 59.874 kg I&O - Last 24 Hours: Intake & Output 05/21/18 05/22/18 05/22/18 22:59 06:59 14:59 Intake Total 1517 1026 400 Balance 1517 1026 400 Lab Results Last 24 Hrs: Laboratory Results - last 24 hr 05/21/18 05/21/18 05/21/18 Range/Units 20:36 20:36 20:36 WBC 12.0 H (4.5-11.0) K/uL RBC 3.83 (3.30-5.50) M/uL Hgb 11.7 L (12.0-15.0) g/dL Hct 37.1 (36.0-48.0) % MCV 97 (80-98) fL MCH 31 (27-31) pg MCHC 32 (32-36) % Plt Count 179 (150-400) K/uL Neut % (Auto) 76 H (36-66) % Lymph % (Auto) 14 L (24-44) % [place] % (Auto) 10 H (2-6) % Eos % (Auto) 0 L (2-4) % Baso % (Auto) 0 (0-1) % Sodium 141 (140-148) mmol/L Potassium 3.6 (3.6-5.2) mmol/L Chloride 105 (100-108) mmol/L Carbon Dioxide 27 (21-32) mmol/L Anion Gap 9.4 (5.0-14.0) mmol/L BUN 6 L (7-18) mg/dL Creatinine 0.7 (0.6-1.0) mg/dL Est Cr Clr Drug Dosing 80.62 mL/min Estimated GFR (MDRD) > 60 (>60) Glucose 135 H (74-106) mg/dL Lactic Acid (0.4-2.0) mmol/L Calcium 8.6 (8.5-10.1) mg/dL Total Bilirubin 0.2 (0.2-1.0) mg/dL AST 18 (15-37) U/L ALT 18 (12-78) U/L Alkaline Phosphatase 64 (46-116) U/L C-Reactive Protein 12.08 H (0.0-0.3) mg/dL Total Protein 5.4 L (6.4-8.2) g/dL Albumin 2.6 L (3.4-5.0) g/dL Globulin 2.8 (2.3-3.5) g/dL Albumin/Globulin Ratio 0.9 L (1.2-2.2) 05/21/18 05/22/18 05/22/18 Range/Units 20:36 08:47 08:47 WBC 8.1 (4.5-11.0) K/uL RBC 3.86 (3.30-5.50) M/uL Hgb 11.9 L (12.0-15.0) g/dL Hct 38.0 (36.0-48.0) % MCV 98 (80-98) fL MCH 31 (27-31) pg MCHC 31 L (32-36) % Plt Count 154 (150-400) K/uL Neut % (Auto) 76 H (36-66) % Lymph % (Auto) 13 L (24-44) % [place] % (Auto) 10 H (2-6) % Eos % (Auto) 1 L (2-4) % Baso % (Auto) 0 (0-1) % Sodium 143 (140-148) mmol/L Potassium 2.8 L* (3.6-5.2) mmol/L Chloride 106 (100-108) mmol/L Carbon Dioxide 26 (21-32) mmol/L Anion Gap 13.8 (5.0-14.0) mmol/L BUN 7 (7-18) mg/dL Creatinine 0.7 (0.6-1.0) mg/dL Est Cr Clr Drug Dosing 80.62 mL/min Estimated GFR (MDRD) > 60 (>60) Glucose 87 (74-106) mg/dL Lactic Acid 1.6 (0.4-2.0) mmol/L Calcium 8.5 (8.5-10.1) mg/dL Total Bilirubin (0.2-1.0) mg/dL AST (15-37) U/L ALT (12-78) U/L Alkaline Phosphatase (46-116) U/L C-Reactive Protein (0.0-0.3) mg/dL Total Protein (6.4-8.2) g/dL Albumin (3.4-5.0) g/dL Globulin (2.3-3.5) g/dL Albumin/Globulin Ratio (1.2-2.2) Med Orders - Current: Current Medications Acetaminophen (Tylenol) 650 mg PO Q4H PRN PRN Reason: Pain/Fever Cyclobenzaprine HCl (Flexeril) 10 mg PO TID [facility] Last Admin: 05/22/18 08:34 Dose: 10 mg Docusate Sodium (Colace) 100 mg PO BID PRN PRN Reason: Constipation Enoxaparin Sodium (Lovenox) 30 mg SUBCUT DAILY [facility] Last Admin: 05/22/18 08:34 Dose: 30 mg Fluticasone Propionate (Flonase) 0 gm NASBOTH DAILY PRN PRN Reason: Allergies Sodium Chloride (Normal Saline) 1,000 mls @ 100 mls/hr IV ASDIRECTED [facility] Last Admin: 05/22/18 04:18 Dose: 100 mls/hr Levofloxacin/Dextrose 750 mg/ (Premix) 150 mls @ 100 mls/hr IV Q24H [facility] Last Admin: 05/21/18 21:19 Dose: 100 mls/hr Morphine Sulfate (Morphine) 2 mg IVPUSH Q4H PRN PRN Reason: Pain (severe 7-10) Oxycodone HCl (Oxycodone) 10 mg PO Q4H PRN PRN Reason: Pain Discontinued Medications Acetaminophen (Tylenol Extra Strength) 1,000 mg PO ONETIME ONE Stop: 05/20/18 09:01 Last Admin: 05/20/18 09:25 Dose: 1,000 mg Hydrocodone Bitart/Acetaminophen ([place] 325-5 Mg) 1 tab PO Q3H PRN PRN Reason: Pain Hydrocodone Bitart/Acetaminophen ([place] 325-5 Mg) 1 tab PO Q3H PRN PRN Reason: FOR MODERATE PAIN Last Admin: 05/22/18 08:35 Dose: 1 tab Albuterol/Ipratropium (Duoneb 3.0-0.5 Mg/3 Ml) 3 ml NEB ONETIME ONE Stop: 05/20/18 09:29 Last Admin: 05/20/18 10:05 Dose: 3 ml Cyclobenzaprine HCl (Flexeril) 10 mg PO TID [facility] Enoxaparin Sodium (Lovenox) 30 mg SUBCUT DAILY [facility] Fentanyl (Sublimaze) Confirm Administered Dose 100 mcg .ROUTE .STK-MED ONE Stop: 05/20/18 09:41 Gabapentin (Neurontin) 300 mg PO ONETIME ONE Stop: 05/20/18 08:46 Last Admin: 05/20/18 09:25 Dose: 300 mg Cefazolin Sodium/Dextrose 1 gm (/ Premix) 50 mls @ 100 mls/hr IV ONETIME ONE Stop: 05/20/18 10:29 Last Admin: 05/20/18 10:11 Dose: 100 mls/hr Tranexamic Acid 550 mg/ Sodium (Chloride) 55.5 mls @ 222 mls/hr IV Q3H [facility] Stop: 05/20/18 12:44 Last Admin: 05/20/18 11:58 Dose: 222 mls/hr Sodium Chloride (Normal Saline) Confirm Administered Dose 10 mls @ as directed .ROUTE .STK-MED ONE Stop: 05/20/18 10:43 Lactated Ringer's (Ringers, Lactated) Confirm Administered Dose 1,000 mls @ as directed .ROUTE .STK-MED ONE Stop: 05/20/18 10:55 Cefazolin Sodium/Dextrose 1 gm (/ Premix) 50 mls @ 100 mls/hr IV Q8HR [facility] Stop: 05/22/18 06:29 Cefazolin Sodium/Dextrose 1 gm (/ Premix) 50 mls @ 100 mls/hr IV Q8H [facility] Stop: 05/22/18 08:29 Last Admin: 05/22/18 08:34 Dose: 100 mls/hr Potassium Chloride 20 meq/Lidocaine HCl 2 ml/ Sodium Chloride 112 mls @ 56 mls/ hr IV Q2H [facility] Stop: 05/22/18 13:59 Last Admin: 05/22/18 12:24 Dose: 56 mls/hr Ibuprofen (Motrin) 400 mg PO ONETIME ONE Stop: 05/21/18 19:32 Last Admin: 05/21/18 20:00 Dose: 400 mg Midazolam HCl (Versed 1 Mg/Ml) Confirm Administered Dose 2 mg .ROUTE .STK-MED ONE Stop: 05/20/18 09:41 Midazolam HCl (Versed 1 Mg/Ml) Confirm Administered Dose 2 mg .ROUTE .STK-MED ONE Stop: 05/20/18 10:55 Morphine Sulfate (Morphine) 2 mg IVPUSH Q4H PRN PRN Reason: Pain (severe 7-10) Oxycodone/Acetaminophen (Percoc[place] 325-5 Mg) 2 tab PO Q6H PRN PRN Reason: Pain (severe 7-10) Oxycodone/Acetaminophen (Percocet 325-5 Mg) 2 tab PO Q6H PRN PRN Reason: Pain (severe 7-10) Last Admin: 05/21/18 20:00 Dose: 2 tab Oxycodone/Acetaminophen (Percocet 325-5 Mg) 2 tab PO Q4H PRN PRN Reason: Pain (severe 7-10) Last Admin: 05/22/18 10:00 Dose: 2 tab Phenylephrine HCl (Emanuel-Synephrine) Confirm Administered Dose 10 mg .ROUTE .STK- MED ONE Stop: 05/20/18 10:43 Potassium Chloride (Klor-Con M20) 40 meq PO ONETIME ONE Stop: 05/22/18 10:01 Last Admin: 05/22/18 10:00 Dose: 40 meq Potassium Chloride (Klor-Con M20) 40 meq PO ONETIME ONE Stop: 05/22/18 14:01 Povidone Iodine (Betadine 10% Soln) Confirm Administered Dose 1 ml .ROUTE .STK- MED ONE Stop: 05/20/18 10:17 Last Admin: 05/20/18 10:54 Dose: 40 ml Propofol (Diprivan 20 Ml) Confirm Administered Dose 200 mg .ROUTE .STK-MED ONE Stop: 05/20/18 09:41 Scopolamine (Transderm-Scop) 1.5 mg TOP ONETIME ONE Stop: 05/20/18 08:46 Last Admin: 05/20/18 09:26 Dose: 1.5 mg - Exam Wound/Incisions: Dressing Dry and Intact General: Alert, Oriented HEENT: Pupils Equal Skin: Warm, Dry, Intact Neurological: No New Focal Deficit Psy/Mental Status: Alert, Normal Affect, Normal Mood - Problem List & Annotations (1) Avascular necrosis of femoral head SNOMED Code(s): 001699256 Code(s): M87.059 - IDIOPATHIC ASEPTIC NECROSIS OF UNSPECIFIED FEMUR Status : Chronic Current Visit: No (2) Fever SNOMED Code(s): 256935271 Code(s): R50.9 - FEVER, UNSPECIFIED Status: Acute Current Visit: Yes Qualifiers: Fever type: post-procedural Qualified Code(s): R50.82 - Postprocedural fever - Problem List Review Problem List Initiated/Reviewed/Updated: Yes - My Orders Last 24 Hours: Active Orders 24 hr Category Date Time Status BASIC METABOLIC PANEL,BMP [CHEM] Timed Lab 05/23/18 05:00 Ordered CBC WITH AUTO DIFF [HEME] Timed Lab 05/23/18 05:00 Ordered CULTURE BLOOD [BC] Urgent Lab 05/21/18 20:20 Received CULTURE BLOOD [BC] Urgent Lab 05/21/18 20:36 Received MAGNESIUM [CHEM] Timed Lab 05/23/18 05:00 Ordered POTASSIUM,K [CHEM] Stat Lab 05/22/18 17:00 Ordered Docusate Sodium [Colace] Med 05/22/18 05:04 Active 100 mg PO BID PRN Levofloxacin/Dextrose 5%-Water [Levaquin in D5W 750 MG/ Med 05/21/18 20:00 Active 150 ML] 750 mg Premix Bag 1 bag IV Q24H oxyCODONE Med 05/22/18 13:36 Active 10 mg PO Q4H PRN Blood Culture x2 Reflex Set [OM.PC] Urgent Oth 05/21/18 19:56 Ordered Medication Orders Acetaminophen (Tylenol) 650 mg PO Q4H PRN PRN Reason: Pain/Fever Cyclobenzaprine HCl (Flexeril) 10 mg PO TID [facility] Last Admin: 05/22/18 08:34 Dose: 10 mg Admin: 05/21/18 20:01 Dose: 10 mg Admin: 05/21/18 14:12 Dose: 10 mg Admin: 05/21/18 08:14 Dose: Admin: 02/08/19 07:28 Dose: 10 mg Admin: 05/20/18 21:35 Dose: 10 mg Admin: 05/20/18 13:06 Dose: Not Given Docusate Sodium (Colace) 100 mg PO BID PRN PRN Reason: Constipation Enoxaparin Sodium (Lovenox) 30 mg SUBCUT DAILY [facility] Last Admin: 05/22/18 08:34 Dose: 30 mg Admin: 05/21/18 09:06 Dose: 30 mg Fluticasone Propionate (Flonase) 0 gm NASBOTH DAILY PRN PRN Reason: Allergies Sodium Chloride (Normal Saline) 1,000 mls @ 100 mls/hr IV ASDIRECTED [facility] Last Admin: 05/22/18 04:18 Dose: 100 mls/hr Infusion: 05/21/18 14:17 Dose: 100 mls/hr Admin: 05/21/18 04:17 Dose: 100 mls/hr Infusion: 05/21/18 04:12 Dose: 100 mls/hr Admin: 05/20/18 18:12 Dose: 100 mls/hr Infusion: 05/20/18 18:12 Dose: 100 mls/hr Admin: 05/20/18 10:01 Dose: 100 mls/hr Levofloxacin/Dextrose 750 mg/ (Premix) 150 mls @ 100 mls/hr IV Q24H [facility] Last Admin: 05/21/18 21:19 Dose: 100 mls/hr Morphine Sulfate (Morphine) 2 mg IVPUSH Q4H PRN PRN Reason: Pain (severe 7-10) Oxycodone HCl (Oxycodone) 10 mg PO Q4H PRN PRN Reason: Pain - Assessment Assessment (Free Text/Narrative):: Doing better today. No obvious source of fever. Potassium low, being replaced. Continue to monitor temp. would like her to be afebrile for at least 24 hrs prior to discharge. Encourage activity, up in chair and with PT/OT.
[2018-05-22] MEDS: oxyCODONE 5 MG Tab PO PRN ×2 (14:41→18:29)
[2018-05-22] MEDS: Levofloxacin/Dextrose 5%-Water 750 MG in Premix Bag 1 BAG IV SCH (20:40)
[2018-05-22] MEDS: Docusate Sodium 100 MG Cap PO PRN (20:40)
[2018-05-22] MEDS: Acetaminophen 325 MG Tab PO PRN (20:40)
[2018-05-23] MEDS: oxyCODONE 5 MG Tab PO PRN ×6 (00:37→23:31)
[2018-05-23] MEDS: Acetaminophen 325 MG Tab PO PRN ×6 (00:37→23:31)
[2018-05-23] MEDS: Sodium Chloride 0.9% 1,000 ML IV SCH (06:58)
[2018-05-23] MEDS: Enoxaparin 30 MG/0.3 ML Syringe SUBCUT SCH (08:37)
[2018-05-23] MEDS: Docusate Sodium 100 MG Cap PO PRN (08:37)
[2018-05-23] MEDS: Cyclobenzaprine 10 MG Tab PO SCH ×3 (08:37→20:36)
[2018-05-23] MEDS: Magnesium Oxide 400 MG Tab PO SCH ×2 (08:52→20:36)
[2018-05-23] MEDS: Magnesium Sulfate/Water 2 GM in Premix Bag 1 BAG IV SCH ×3 (08:53→20:36)
--- NOTE | 2018-05-23 11:32 | PCM.CONSN ---
- General Info Date of Service: 05/23/18 Subjective Update: Ms. Brownlee has done well since yesterday, somewhat stronger and ambulating with use of her walker. Mild temperature elevation again yesterday, none since then. Tolerating diet with good vital signs. Functional Status: Reports: Tolerating Diet, Ambulating, Urinating - Review of Systems General: Reports: Fever. Denies: Chills Pulmonary: Reports: No Symptoms Cardiovascular: Reports: No Symptoms Gastrointestinal: Reports: No Symptoms Musculoskeletal: Reports: Other (Right hip and incisional pain) - Patient Data Vitals - Most Recent: Last Vital Signs Temp 97.1 F 05/23/18 07:00 Pulse 83 05/23/18 07:00 Resp 18 05/23/18 07:00 BP 93/54 L 05/23/18 07:00 Pulse Ox 97 05/23/18 07:00 Weight - Most Recent: 131 lb 15.993 oz I&O - Last 24 Hours: Intake & Output 05/22/18 05/23/18 05/23/18 22:59 06:59 14:59 Intake Total 2636 425 Balance 2636 425 Lab Results Last 24 Hours: Laboratory Results - last 24 hr 05/22/18 05/23/18 05/23/18 Range/Units 16:59 06:02 06:02 WBC 7.6 (4.5-11.0) K/uL RBC 3.29 L (3.30-5.50) M/uL Hgb 10.1 L (12.0-15.0) g/dL Hct 32.4 L (36.0-48.0) % MCV 99 H (80-98) fL MCH 31 (27-31) pg MCHC 31 L (32-36) % Plt Count 170 (150-400) K/uL Neut % (Auto) 65 (36-66) % Lymph % (Auto) 22 L (24-44) % [place] % (Auto) 11 H (2-6) % Eos % (Auto) 2 (2-4) % Baso % (Auto) 0 (0-1) % Sodium 141 (140-148) mmol/L Potassium 4.4 3.9 (3.6-5.2) mmol/L Chloride 109 H (100-108) mmol/L Carbon Dioxide 25 (21-32) mmol/L Anion Gap 10.9 (5.0-14.0) mmol/L BUN 6 L (7-18) mg/dL Creatinine 0.7 (0.6-1.0) mg/dL Est Cr Clr Drug Dosing 80.62 mL/min Estimated GFR (MDRD) > 60 (>60) Glucose 95 (74-106) mg/dL Calcium 8.6 (8.5-10.1) mg/dL Magnesium 1.3 L (1.8-2.4) mg/dL Donal Results Last 24 Hours: Microbiology 05/21/18 20:20 Aerobic Blood Culture - Preliminary Blood - Venous - Lab Draw NO GROWTH AFTER 1 DAY Anaerobic Blood Culture - Preliminary NO GROWTH AFTER 1 DAY 05/21/18 20:36 Aerobic Blood Culture - Preliminary Blood - Venous NO GROWTH AFTER 1 DAY Anaerobic Blood Culture - Preliminary NO GROWTH AFTER 1 DAY Med Orders - Current: Current Medications Acetaminophen (Tylenol) 650 mg PO Q4H PRN PRN Reason: Pain/Fever Last Admin: 05/23/18 08:31 Dose: 650 mg Cyclobenzaprine HCl (Flexeril) 10 mg PO TID [facility] Last Admin: 05/23/18 08:37 Dose: 10 mg Docusate Sodium (Colace) 100 mg PO BID PRN PRN Reason: Constipation Last Admin: 05/23/18 08:37 Dose: 100 mg Enoxaparin Sodium (Lovenox) 30 mg SUBCUT DAILY [facility] Last Admin: 05/23/18 08:37 Dose: 30 mg Fluticasone Propionate (Flonase) 0 gm NASBOTH DAILY PRN PRN Reason: Allergies Magnesium Sulfate 2 gm/ Premix 50 mls @ 25 mls/hr IV Q6H [facility] Stop: 05/23/18 22:59 Last Admin: 05/23/18 08:53 Dose: 25 mls/hr Magnesium Oxide (Magnesium Oxide) 400 mg PO BID [facility] Last Admin: 05/23/18 08:52 Dose: 400 mg Morphine Sulfate (Morphine) 2 mg IVPUSH Q4H PRN PRN Reason: Pain (severe 7-10) Last Admin: 05/22/18 21:12 Dose: 2 mg Oxycodone HCl (Oxycodone) 10 mg PO Q4H PRN PRN Reason: Pain Last Admin: 05/23/18 08:31 Dose: 10 mg Discontinued Medications Acetaminophen (Tylenol Extra Strength) 1,000 mg PO ONETIME ONE Stop: 05/20/18 09:01 Last Admin: 05/20/18 09:25 Dose: 1,000 mg Hydrocodone Bitart/Acetaminophen ([place] 325-5 Mg) 1 tab PO Q3H PRN PRN Reason: Pain Hydrocodone Bitart/Acetaminophen ([place] 325-5 Mg) 1 tab PO Q3H PRN PRN Reason: FOR MODERATE PAIN Last Admin: 05/22/18 08:35 Dose: 1 tab Albuterol/Ipratropium (Duoneb 3.0-0.5 Mg/3 Ml) 3 ml NEB ONETIME ONE Stop: 05/20/18 09:29 Last Admin: 05/20/18 10:05 Dose: 3 ml Cyclobenzaprine HCl (Flexeril) 10 mg PO TID [facility] Enoxaparin Sodium (Lovenox) 30 mg SUBCUT DAILY [facility] Fentanyl (Sublimaze) Confirm Administered Dose 100 mcg .ROUTE .STK-MED ONE Stop: 05/20/18 09:41 Gabapentin (Neurontin) 300 mg PO ONETIME ONE Stop: 05/20/18 08:46 Last Admin: 05/20/18 09:25 Dose: 300 mg Cefazolin Sodium/Dextrose 1 gm (/ Premix) 50 mls @ 100 mls/hr IV ONETIME ONE Stop: 05/20/18 10:29 Last Admin: 05/20/18 10:11 Dose: 100 mls/hr Sodium Chloride (Normal Saline) 1,000 mls @ 100 mls/hr IV ASDIRECTED [facility] Last Admin: 05/23/18 06:58 Dose: 100 mls/hr Tranexamic Acid 550 mg/ Sodium (Chloride) 55.5 mls @ 222 mls/hr IV Q3H [facility] Stop: 05/20/18 12:44 Last Admin: 05/20/18 11:58 Dose: 222 mls/hr Sodium Chloride (Normal Saline) Confirm Administered Dose 10 mls @ as directed .ROUTE .STK-MED ONE Stop: 05/20/18 10:43 Lactated Ringer's (Ringers, Lactated) Confirm Administered Dose 1,000 mls @ as directed .ROUTE .STK-MED ONE Stop: 05/20/18 10:55 Cefazolin Sodium/Dextrose 1 gm (/ Premix) 50 mls @ 100 mls/hr IV Q8HR [facility] Stop: 05/22/18 06:29 Cefazolin Sodium/Dextrose 1 gm (/ Premix) 50 mls @ 100 mls/hr IV Q8H [facility] Stop: 05/22/18 08:29 Last Admin: 05/22/18 08:34 Dose: 100 mls/hr Levofloxacin/Dextrose 750 mg/ (Premix) 150 mls @ 100 mls/hr IV Q24H [facility] Last Admin: 05/22/18 20:40 Dose: 100 mls/hr Potassium Chloride 20 meq/Lidocaine HCl 2 ml/ Sodium Chloride 112 mls @ 56 mls/ hr IV Q2H [facility] Stop: 05/22/18 13:59 Last Admin: 05/22/18 12:24 Dose: 56 mls/hr Ibuprofen (Motrin) 400 mg PO ONETIME ONE Stop: 05/21/18 19:32 Last Admin: 05/21/18 20:00 Dose: 400 mg Midazolam HCl (Versed 1 Mg/Ml) Confirm Administered Dose 2 mg .ROUTE .STK-MED ONE Stop: 05/20/18 09:41 Midazolam HCl (Versed 1 Mg/Ml) Confirm Administered Dose 2 mg .ROUTE .STK-MED ONE Stop: 05/20/18 10:55 Morphine Sulfate (Morphine) 2 mg IVPUSH Q4H PRN PRN Reason: Pain (severe 7-10) Oxycodone/Acetaminophen (Percocet 325-5 Mg) 2 tab PO Q6H PRN PRN Reason: Pain (severe 7-10) Oxycodone/Acetaminophen (Percocet 325-5 Mg) 2 tab PO Q6H PRN PRN Reason: Pain (severe 7-10) Last Admin: 05/21/18 20:00 Dose: 2 tab Oxycodone/Acetaminophen (Percocet 325-5 Mg) 2 tab PO Q4H PRN PRN Reason: Pain (severe 7-10) Last Admin: 05/22/18 10:00 Dose: 2 tab Phenylephrine HCl (Emanuel-Synephrine) Confirm Administered Dose 10 mg .ROUTE .STK- MED ONE Stop: 05/20/18 10:43 Potassium Chloride (Klor-Con M20) 40 meq PO ONETIME ONE Stop: 05/22/18 10:01 Last Admin: 05/22/18 10:00 Dose: 40 meq Potassium Chloride (Klor-Con M20) 40 meq PO ONETIME ONE Stop: 05/22/18 14:01 Last Admin: 05/22/18 14:40 Dose: 40 meq Povidone Iodine (Betadine 10% Soln) Confirm Administered Dose 1 ml .ROUTE .STK- MED ONE Stop: 05/20/18 10:17 Last Admin: 05/20/18 10:54 Dose: 40 ml Propofol (Diprivan 20 Ml) Confirm Administered Dose 200 mg .ROUTE .STK-MED ONE Stop: 05/20/18 09:41 Scopolamine (Transderm-Scop) 1.5 mg TOP ONETIME ONE Stop: 05/20/18 08:46 Last Admin: 05/20/18 09:26 Dose: 1.5 mg - Exam Quality Assessment: DVT Prophylaxis General: Alert, Oriented, Cooperative, Mild Distress Lungs: Clear to Auscultation, Normal Respiratory Effort Cardiovascular: Regular Rate, Regular Rhythm, No Murmurs GI/Abdominal Exam: Soft, Non-Tender, No Organomegaly, No Distention Extremities: No Pedal Edema Consult PN Assessment/Plan Procedures: Procedures AGENT NOS ASSAY W/OPTIC (04/28/15) ASSAY OF CK (CPK) (02/15/15) ASSAY OF CREATININE (09/26/15) ASSAY OF FOLIC ACID RBC (01/25/14) ASSAY OF FOLIC ACID SERUM (02/15/15) ASSAY OF LACTIC ACID (05/17/15) ASSAY OF LIPASE (04/28/15) ASSAY OF MAGNESIUM (04/28/15) ASSAY OF SERUM POTASSIUM (02/27/15) ASSAY OF TROPONIN QUANT (02/15/15) ASSAY OF VANCOMYCIN (02/15/15) BLOOD CULTURE FOR BACTERIA (02/15/15) BLOOD GASES ANY COMBINATION (02/15/15) BLOOD TRANSFUSION SERVICE (02/15/15) BLOOD TYPING SEROLOGIC ABO (05/18/18) BLOOD TYPING SEROLOGIC RH(D) (05/18/18) C DIFF AMPLIFIED PROBE (04/28/15) C-REACTIVE PROTEIN (01/06/16) CHEST X-RAY 1 VIEW FRONTAL (02/15/15) CHEST X-RAY 2VW FRONTAL&LATL (05/17/15) COMPATIBILITY TEST ANTIGLOB (02/15/15) COMPATIBILITY TEST SPIN (02/15/15) COMPLETE CBC AUTOMATED (05/18/18) COMPLETE CBC W/AUTO DIFF WBC (01/06/16) COMPREHEN METABOLIC PANEL (05/18/18) CT ABD & PELV W/CONTRAST (09/26/15) CT PELVIS W/DYE (03/12/15) CULTURE AEROBIC IDENTIFY (02/15/15) CULTURE SCREEN ONLY (05/17/15) DRAIN/INJ JOINT/BURSA W/O US (01/13/18) ELECTROCARDIOGRAM REPORT (02/15/15) ELECTROCARDIOGRAM TRACING (02/15/15) EMERGENCY DEPT VISIT (11/28/17) EMERGENCY DEPT VISIT (05/17/15) EMERGENCY DEPT VISIT (04/28/15) EMERGENCY DEPT VISIT (04/28/15) EMERGENCY DEPT VISIT (03/01/14) EMERGENCY DEPT VISIT (03/01/14) EMERGENCY DEPT VISIT (01/25/14) HEMOGLOBIN (04/28/15) HYDRATE IV INFUSION ADD-ON (04/28/15) HYDRATION IV INFUSION INIT (01/06/16) IIV4 VACC NO PRSV 0.5 ML IM (02/15/15) INFLUENZA ASSAY W/OPTIC (05/17/15) INITIAL OBSERVATION CARE (04/28/15) LACTATE (LD) (LDH) ENZYME (02/15/15) LEUKOCYTE ASSESSMENT FECAL (02/15/15) MEASURE BLOOD OXYGEN LEVEL (02/15/15) METABOLIC PANEL TOTAL CA (05/17/15) MICROBE SUSCEPTIBLE DONAL (02/15/15) NEEDLE LOCALIZATION BY XRAY (01/13/18) OBSERVATION CARE DISCHARGE (04/28/15) OCCULT BLD FECES 1-3 TESTS (02/15/15) OT EVALUATION (02/15/15) PROTHROMBIN TIME (01/25/14) PT EVALUATION (05/17/15) RBC ANTIBODY SCREEN (05/18/18) RBC SED RATE NONAUTOMATED (04/28/15) ROUTINE VENIPUNCTURE (05/18/18) STOOL CULTR AEROBIC BACT EA (04/28/15) STREP A AG IA (05/17/15) SUBSEQUENT OBSERVATION CARE (04/28/15) THER/PROPH/DIAG INJ IV PUSH (09/11/15) THER/PROPH/DIAG INJ SC/IM (11/28/17) THER/PROPH/DIAG IV INF ADDON (01/25/14) THER/PROPH/DIAG IV INF INIT (01/25/14) THERAPEUTIC ACTIVITIES (05/17/15) THERAPEUTIC EXERCISES (05/17/15) THROMBOPLASTIN TIME PARTIAL (01/25/14) TX/PRO/DX INJ NEW DRUG ADDON (05/17/15) TX/PRO/DX INJ SAME DRUG JEWELRY SALESPERSON (05/17/15) URINALYSIS AUTO W/O SCOPE (05/18/18) URINALYSIS AUTO W/SCOPE (05/17/15) URINE BACTERIA CULTURE (01/25/14) URINE CULTURE/COLONY COUNT (02/15/15) US EXAM ABDO BACK WALL GERARD (02/15/15) VITAMIN B-12 (02/15/15) WITHDRAWAL OF ARTERIAL BLOOD (02/15/15) X-RAY EXAM HIP UNI 2-3 VIEWS (05/06/18) X-RAY EXAM OF SHOULDER (05/06/18) X-RAY EXAM RIBS UNI 2 VIEWS (01/25/14) Problem List Initiated/Reviewed/Updated: Yes My Orders Last 24 Hours: My Active Orders 05/22/18 13:36 oxyCODONE 10 mg PO Q4H PRN 05/23/18 09:00 Magnesium Oxide 400 mg PO BID Magnesium Sulfate/Water [Magnesium Sulfate 2 GM in Water 50 ML] 2 gm Premix Bag 1 bag IV Q6H 05/23/18 11:25 Convert IV to Saline Lock [OM.PC] Routine 05/24/18 05:00 MAGNESIUM [CHEM] Timed Plan: ASSESSMENT AND RECOMMENDATIONS POSTOPERATIVE FEVER-likely secondary to atelectasis. Mild temperature elevation again yesterday, no obvious source of infection identified thus far on evaluation. Blood cultures obtained with previous temperature elevation remain negative. She appears to be significantly improved over the past few days with more energy and activity. -Aggressive use of incentive spirometry -Discontinue levofloxacin Hypokalemia-resolved Hypomagnesemia -IV and oral magnesium replacement -Recheck magnesium level in a.m. SLE-stable, currently on no medical therapy STATUS POST TOTAL RIGHT HIP ARTHROPLASTY -Postoperative care per Dr. Nunez
[2018-05-24] MEDS: oxyCODONE 5 MG Tab PO PRN ×3 (03:41→13:00)
[2018-05-24] MEDS: Acetaminophen 325 MG Tab PO PRN ×3 (03:42→13:00)
[2018-05-24 08:38] VITALS: BP 107/62
[2018-05-24] MEDS: Cyclobenzaprine 10 MG Tab PO SCH ×3 (09:12→13:01)
[2018-05-24] MEDS: Magnesium Oxide 400 MG Tab PO SCH (09:12)
[2018-05-24] MEDS: Enoxaparin 30 MG/0.3 ML Syringe SUBCUT SCH (09:12)
--- NOTE | 2018-05-24 11:15 | PCM.SURGPN ---
- General Info Date of Service: 05/24/18 POD#: 4 Post-Op Diagnosis: S/P right NANCY Functional Status: Reports: Pain Controlled - Review of Systems General: Reports: No Symptoms Musculoskeletal: Reports: Shoulder Pain Neurological: Reports: No Symptoms Psychiatric: Reports: No Symptoms Systems Review Comment:: Did well this weekend. Fever resolved, K+ and Mg replaced. Still having some difficulty with transfers out of bed. Doing approx. 124 ft with PT. - Patient Data Vitals - Most Recent: Last Vital Signs Temp 37.3 C 05/24/18 08:36 Pulse 89 05/24/18 08:36 Resp 16 05/24/18 08:36 BP 107/62 05/24/18 08:36 Pulse Ox 99 05/24/18 08:36 Weight - Most Recent: 59.874 kg I&O - Last 24 Hours: Intake & Output 05/23/18 05/24/18 05/24/18 22:59 06:59 14:59 Intake Total 1050 300 Balance 1050 300 Lab Results Last 24 Hrs: Laboratory Results - last 24 hr 05/24/18 Range/Units 05:47 Magnesium 2.3 D (1.8-2.4) mg/dL Donal Results Last 24 Hrs: Microbiology 05/21/18 20:36 Aerobic Blood Culture - Preliminary Blood - Venous NO GROWTH AFTER 2 DAYS Anaerobic Blood Culture - Preliminary NO GROWTH AFTER 2 DAYS 05/21/18 20:20 Aerobic Blood Culture - Preliminary Blood - Venous - Lab Draw NO GROWTH AFTER 2 DAYS Anaerobic Blood Culture - Preliminary NO GROWTH AFTER 2 DAYS Med Orders - Current: Current Medications Acetaminophen (Tylenol) 650 mg PO Q4H PRN PRN Reason: Pain/Fever Last Admin: 05/24/18 09:11 Dose: 650 mg Cyclobenzaprine HCl (Flexeril) 10 mg PO TID [facility] Last Admin: 05/24/18 09:12 Dose: 10 mg Docusate Sodium (Colace) 100 mg PO BID PRN PRN Reason: Constipation Last Admin: 05/23/18 08:37 Dose: 100 mg Enoxaparin Sodium (Lovenox) 30 mg SUBCUT DAILY [facility] Last Admin: 05/24/18 09:12 Dose: 30 mg Fluticasone Propionate (Flonase) 0 gm NASBOTH DAILY PRN PRN Reason: Allergies Last Admin: 05/24/18 09:10 Dose: 1 spray Magnesium Oxide (Magnesium Oxide) 400 mg PO BID [facility] Last Admin: 05/24/18 09:12 Dose: 400 mg Morphine Sulfate (Morphine) 2 mg IVPUSH Q4H PRN PRN Reason: Pain (severe 7-10) Last Admin: 05/22/18 21:12 Dose: 2 mg Oxycodone HCl (Oxycodone) 10 mg PO Q4H PRN PRN Reason: Pain Last Admin: 05/24/18 09:11 Dose: 10 mg Discontinued Medications Acetaminophen (Tylenol Extra Strength) 1,000 mg PO ONETIME ONE Stop: 05/20/18 09:01 Last Admin: 05/20/18 09:25 Dose: 1,000 mg Hydrocodone Bitart/Acetaminophen ([place] 325-5 Mg) 1 tab PO Q3H PRN PRN Reason: Pain Hydrocodone Bitart/Acetaminophen ([place] 325-5 Mg) 1 tab PO Q3H PRN PRN Reason: FOR MODERATE PAIN Last Admin: 05/22/18 08:35 Dose: 1 tab Albuterol/Ipratropium (Duoneb 3.0-0.5 Mg/3 Ml) 3 ml NEB ONETIME ONE Stop: 05/20/18 09:29 Last Admin: 05/20/18 10:05 Dose: 3 ml Cyclobenzaprine HCl (Flexeril) 10 mg PO TID [facility] Enoxaparin Sodium (Lovenox) 30 mg SUBCUT DAILY [facility] Fentanyl (Sublimaze) Confirm Administered Dose 100 mcg .ROUTE .STK-MED ONE Stop: 05/20/18 09:41 Gabapentin (Neurontin) 300 mg PO ONETIME ONE Stop: 05/20/18 08:46 Last Admin: 05/20/18 09:25 Dose: 300 mg Cefazolin Sodium/Dextrose 1 gm (/ Premix) 50 mls @ 100 mls/hr IV ONETIME ONE Stop: 05/20/18 10:29 Last Admin: 05/20/18 10:11 Dose: 100 mls/hr Sodium Chloride (Normal Saline) 1,000 mls @ 100 mls/hr IV ASDIRECTED [facility] Last Admin: 05/23/18 06:58 Dose: 100 mls/hr Tranexamic Acid 550 mg/ Sodium (Chloride) 55.5 mls @ 222 mls/hr IV Q3H [facility] Stop: 05/20/18 12:44 Last Admin: 05/20/18 11:58 Dose: 222 mls/hr Sodium Chloride (Normal Saline) Confirm Administered Dose 10 mls @ as directed .ROUTE .STK-MED ONE Stop: 05/20/18 10:43 Lactated Ringer's (Ringers, Lactated) Confirm Administered Dose 1,000 mls @ as directed .ROUTE .STK-MED ONE Stop: 05/20/18 10:55 Cefazolin Sodium/Dextrose 1 gm (/ Premix) 50 mls @ 100 mls/hr IV Q8HR [facility] Stop: 05/22/18 06:29 Cefazolin Sodium/Dextrose 1 gm (/ Premix) 50 mls @ 100 mls/hr IV Q8H [facility] Stop: 05/22/18 08:29 Last Admin: 05/22/18 08:34 Dose: 100 mls/hr Levofloxacin/Dextrose 750 mg/ (Premix) 150 mls @ 100 mls/hr IV Q24H [facility] Last Admin: 05/22/18 20:40 Dose: 100 mls/hr Potassium Chloride 20 meq/Lidocaine HCl 2 ml/ Sodium Chloride 112 mls @ 56 mls/ hr IV Q2H [facility] Stop: 05/22/18 13:59 Last Admin: 05/22/18 12:24 Dose: 56 mls/hr Magnesium Sulfate 2 gm/ Premix 50 mls @ 25 mls/hr IV Q6H [facility] Stop: 05/23/18 22:59 Last Admin: 05/23/18 20:36 Dose: 25 mls/hr Ibuprofen (Motrin) 400 mg PO ONETIME ONE Stop: 05/21/18 19:32 Last Admin: 05/21/18 20:00 Dose: 400 mg Midazolam HCl (Versed 1 Mg/Ml) Confirm Administered Dose 2 mg .ROUTE .STK-MED ONE Stop: 05/20/18 09:41 Midazolam HCl (Versed 1 Mg/Ml) Confirm Administered Dose 2 mg .ROUTE .STK-MED ONE Stop: 05/20/18 10:55 Morphine Sulfate (Morphine) 2 mg IVPUSH Q4H PRN PRN Reason: Pain (severe 7-10) Oxycodone/Acetaminophen (Percocet 325-5 Mg) 2 tab PO Q6H PRN PRN Reason: Pain (severe 7-10) Oxycodone/Acetaminophen (Percocet 325-5 Mg) 2 tab PO Q6H PRN PRN Reason: Pain (severe 7-10) Last Admin: 05/21/18 20:00 Dose: 2 tab Oxycodone/Acetaminophen (Percocet 325-5 Mg) 2 tab PO Q4H PRN PRN Reason: Pain (severe 7-10) Last Admin: 05/22/18 10:00 Dose: 2 tab Phenylephrine HCl (Emanuel-Synephrine) Confirm Administered Dose 10 mg .ROUTE .STK- MED ONE Stop: 05/20/18 10:43 Potassium Chloride (Klor-Con M20) 40 meq PO ONETIME ONE Stop: 05/22/18 10:01 Last Admin: 05/22/18 10:00 Dose: 40 meq Potassium Chloride (Klor-Con M20) 40 meq PO ONETIME ONE Stop: 05/22/18 14:01 Last Admin: 05/22/18 14:40 Dose: 40 meq Povidone Iodine (Betadine 10% Soln) Confirm Administered Dose 1 ml .ROUTE .STK- MED ONE Stop: 05/20/18 10:17 Last Admin: 05/20/18 10:54 Dose: 40 ml Propofol (Diprivan 20 Ml) Confirm Administered Dose 200 mg .ROUTE .STK-MED ONE Stop: 05/20/18 09:41 Scopolamine (Transderm-Scop) 1.5 mg TOP ONETIME ONE Stop: 05/20/18 08:46 Last Admin: 05/20/18 09:26 Dose: 1.5 mg - Exam Wound/Incisions: Healing Well, Dressing Dry and Intact General: Alert, Oriented Skin: Other (rash right leg improving) Neurological: No New Focal Deficit Psy/Mental Status: Alert, Normal Affect, Normal Mood - Problem List & Annotations (1) Avascular necrosis of femoral head SNOMED Code(s): 970495337 Code(s): M87.059 - IDIOPATHIC ASEPTIC NECROSIS OF UNSPECIFIED FEMUR Status : Chronic Current Visit: No (2) Fever SNOMED Code(s): 611351027 Code(s): R50.9 - FEVER, UNSPECIFIED Status: Acute Current Visit: Yes Qualifiers: Fever type: post-procedural Qualified Code(s): R50.82 - Postprocedural fever - Problem List Review Problem List Initiated/Reviewed/Updated: Yes - My Orders Last 24 Hours: Active Orders 24 hr Category Date Time Status Convert IV to Saline Lock [OM.PC] Routine Oth 05/23/18 11:25 Ordered Medication Orders Acetaminophen (Tylenol) 650 mg PO Q4H PRN PRN Reason: Pain/Fever Last Admin: 05/24/18 09:11 Dose: 650 mg Admin: 05/24/18 03:42 Dose: 650 mg Admin: 05/23/18 23:31 Dose: 650 mg Admin: 05/23/18 19:17 Dose: 650 mg Admin: 05/23/18 14:16 Dose: 650 mg Admin: 05/23/18 08:31 Dose: 650 mg Admin: 05/23/18 04:30 Dose: 650 mg Admin: 05/23/18 00:37 Dose: 650 mg Admin: 05/22/18 20:40 Dose: 650 mg Cyclobenzaprine HCl (Flexeril) 10 mg PO TID [facility] Last Admin: 05/24/18 09:12 Dose: 10 mg Admin: 05/23/18 20:36 Dose: 10 mg Admin: 05/23/18 14:15 Dose: 10 mg Admin: 05/23/18 08:37 Dose: 10 mg Admin: 05/22/18 20:40 Dose: 10 mg Admin: 05/22/18 14:40 Dose: 10 mg Admin: 05/22/18 08:34 Dose: 10 mg Admin: 05/21/18 20:01 Dose: 10 mg Admin: 05/21/18 14:12 Dose: 10 mg Admin: 05/21/18 08:14 Dose: Admin: 05/21/18 07:28 Dose: 10 mg Admin: 05/20/18 21:35 Dose: 10 mg Admin: 05/20/18 13:06 Dose: Not Given Docusate Sodium (Colace) 100 mg PO BID PRN PRN Reason: Constipation Last Admin: 05/23/18 08:37 Dose: 100 mg Admin: 05/22/18 20:40 Dose: 100 mg Enoxaparin Sodium (Lovenox) 30 mg SUBCUT DAILY [facility] Last Admin: 05/24/18 09:12 Dose: 30 mg Admin: 05/23/18 08:37 Dose: 30 mg Admin: 05/22/18 08:34 Dose: 30 mg Admin: 05/21/18 09:06 Dose: 30 mg Fluticasone Propionate (Flonase) 0 gm NASBOTH DAILY PRN PRN Reason: Allergies Last Admin: 05/24/18 09:10 Dose: 1 spray Magnesium Oxide (Magnesium Oxide) 400 mg PO BID [facility] Last Admin: 05/24/18 09:12 Dose: 400 mg Admin: 05/23/18 20:36 Dose: 400 mg Admin: 05/23/18 08:52 Dose: 400 mg Morphine Sulfate (Morphine) 2 mg IVPUSH Q4H PRN PRN Reason: Pain (severe 7-10) Last Admin: 05/22/18 21:12 Dose: 2 mg Oxycodone HCl (Oxycodone) 10 mg PO Q4H PRN PRN Reason: Pain Last Admin: 05/24/18 09:11 Dose: 10 mg Admin: 05/24/18 03:41 Dose: 10 mg Admin: 05/23/18 23:31 Dose: 10 mg Admin: 05/23/18 19:17 Dose: 10 mg Admin: 05/23/18 14:15 Dose: 10 mg Admin: 05/23/18 08:31 Dose: 10 mg Admin: 05/23/18 04:30 Dose: 10 mg Admin: 05/23/18 00:37 Dose: 10 mg Admin: 05/22/18 18:29 Dose: 10 mg Admin: 05/22/18 14:41 Dose: 10 mg - Assessment Assessment (Free Text/Narrative):: S/P Right NANCY ready for discharge to Rehab/SNF. Still needs to work on strengthening, transfers and ambulation. - Plan Plan (Free Text/Narrative):: Ok for discharge today to SNF. Follow up in 2 weeks.
[2018-05-25] MEDS ORDERED: Non-Formulary Medication 1 Each (Lidocaine 5% [Lidoderm 5%] 1 PATCH) TOP SCH (09:00)
[2018-05-25] MEDS ORDERED: Lidocaine 5% 700 MG Patch TRDERM SCH (09:00)
== END 2018-05-24 13:10 | DRG 470 ==
LOC: EDSTATUS 07:30 → JP.SDSSCHI 08:56 → JP.SDS 08:56 → JP.MS 11:58
PROVIDERS: ADMIT Specialist; ATTEND Specialist
PROC: 0SR902A Replacement of Right Hip Joint with Metal on Polyethylene Synthetic Substitute, Uncemented, Open Approach (ICD-10-PCS; principal; 2018-05-20)
DX: M87.151 Osteonecrosis due to drugs, right femur (principal); M87.121 Osteonecrosis due to drugs, right humerus; T38.0X5A Adverse effect of glucocorticoids and synthetic analogues, initial encounter; M32.9 Systemic lupus erythematosus, unspecified; M16.11 Unilateral primary osteoarthritis, right hip; R50.82 Postprocedural fever; Z79.52 Long term (current) use of systemic steroids; E87.6 Hypokalemia; E83.42 Hypomagnesemia; M54.9 Dorsalgia, unspecified; G89.29 Other chronic pain; Z86.14 Personal history of Methicillin resistant Staphylococcus aureus infection; Z87.898 Personal history of other specified conditions; Z87.891 Personal history of nicotine dependence; Z90.49 Acquired absence of other specified parts of digestive tract; K21.9 Gastro-esophageal reflux disease without esophagitis; Z88.1 Allergy status to other antibiotic agents; Z91.040 Latex allergy status; Z88.0 Allergy status to penicillin; Z88.2 Allergy status to sulfonamides; Z88.8 Allergy status to other drugs, medicaments and biological substances; Z91.09 Other allergy status, other than to drugs and biological substances
CPT/HCPCS: 36415; 71046; 72170; 80048; 80053; 81001; 83605; 83735; 84132; 85025; 85027; 86140; 87040; 88304; 88311; 94640; 97110-GP; 97116-GP; 97140-GP; 97162-GP; 97165-GO; 97530-GP; 97535-GP; A9270-GY; C1713; C1776; J0690; J1650; J1956; J2250; J2270; J2370; J2704; J3010; J3475; J3480; J7030; J7050; J7120; J7620-GY

== ENCOUNTER 2018-07-14 06:12 | Observation (INO) | payer MEDICARE, OTHER ==
[~2018-07-14 06:12] MED LIST: Acetaminophen 500 MG Tab PO ONE; Scopolamine 1.5 MG Transdermal Patch TOP SCH
[2018-07-14] MEDS: Lactated Ringers 1,000 ML IV SCH ×2 (06:32→11:00)
[2018-07-14] MEDS: Nozin Nasal Sanitizer NASBOTH SCH ×3 (06:35→22:04)
[2018-07-14] MEDS ORDERED: Povidone-Iodine 10% Soln 118.25 ML Bottle ONE (06:40)
[2018-07-14] MEDS ORDERED: Clindamycin Phosphate 900 MG in Sodium Chloride 0.9% 100 ML IV ONE (07:00)
[2018-07-14] MEDS ORDERED: fentaNYL 250 MCG/5 ML SDV ONE (07:21)
[2018-07-14] MEDS ORDERED: Succinylcholine 200 MG/10 ML MDV ONE (07:23)
[2018-07-14] MEDS ORDERED: Neostigmine Methylsulfate 1 MG/ML 5 ML Syringe ONE (07:23)
[2018-07-14] MEDS ORDERED: Glycopyrrolate 0.2 MG/ML 5 ML MDV ONE (07:23)
[2018-07-14] MEDS ORDERED: Rocuronium 50 MG/5 ML Vial ONE (07:23)
[2018-07-14] MEDS ORDERED: Ondansetron 4 MG/2 ML SDV ONE (07:23)
[2018-07-14] MEDS ORDERED: Dexamethasone 4 MG/ML SDV ONE (07:23)
[2018-07-14] MEDS ORDERED: Propofol 200 MG/20 ML SDV ONE (07:23)
[2018-07-14] MEDS ORDERED: Bupivacaine 0.5% 30 ML SDV ONE (07:26)
[2018-07-14] MEDS ORDERED: Albuterol/Ipratropium 3.0-0.5 MG/3 ML Neb Soln NEB ONE (07:30)
[2018-07-14] MEDS ORDERED: Acetaminophen/HYDROcodone 325-5 MG Tab PO PRN (09:10)
[2018-07-14] MEDS ORDERED: Sodium Chloride 0.9% 1,000 ML IV SCH (09:15)
[2018-07-14] MEDS ORDERED: Albuterol 8 GM Inhaler INH PRN (09:15)
[2018-07-14] MEDS ORDERED: Fluticasone Propionate Nasal Spray 16 GM Bottle NASBOTH PRN (09:15)
[2018-07-14] MEDS ORDERED: Acetaminophen/oxyCODONE 325-5 MG Tab PO PRN (09:18)
[2018-07-14] MEDS ORDERED: Lidocaine 1% 0 ML ONE (10:14)
[2018-07-14] MEDS: Morphine 2 MG/ML Syringe IVPUSH PRN ×2 (11:03→18:59)
[2018-07-14] MEDS: Cyclobenzaprine 10 MG Tab PO SCH ×2 (13:24→22:04)
[2018-07-14] MEDS ORDERED: Benzocaine/Cetylpyridinium/Menthol Lozenge MUCMEM PRN (14:00)
[2018-07-14] MEDS: Acetaminophen/oxyCODONE 325-5 MG Tab PO PRN ×2 (14:24→22:13)
[2018-07-14] MEDS: Clindamycin Phosphate 900 MG in Sodium Chloride 0.9% 100 ML IV SCH ×2 (16:51→23:43)
[2018-07-15] MEDS: Morphine 2 MG/ML Syringe IVPUSH PRN ×6 (03:12→21:01)
[2018-07-15] MEDS: Acetaminophen/oxyCODONE 325-5 MG Tab PO PRN ×3 (05:15→17:51)
[2018-07-15] MEDS: Clindamycin Phosphate 900 MG in Sodium Chloride 0.9% 100 ML IV SCH (07:38)
[2018-07-15] MEDS: Cyclobenzaprine 10 MG Tab PO SCH ×3 (10:00→20:54)
[2018-07-15] MEDS: Nozin Nasal Sanitizer NASBOTH SCH ×2 (10:01→20:54)
[2018-07-16] MEDS: Acetaminophen/oxyCODONE 325-5 MG Tab PO PRN ×4 (00:12→18:16)
[2018-07-16] MEDS: Morphine 2 MG/ML Syringe IVPUSH PRN (08:08)
[2018-07-16] MEDS: Cyclobenzaprine 10 MG Tab PO SCH ×2 (08:20→13:51)
[2018-07-16] MEDS: Nozin Nasal Sanitizer NASBOTH SCH (08:23)
--- NOTE | 2018-07-16 08:23 | CRLCR ---
INDICATION: Postop right shoulder erasto arthroplasty. TECHNIQUE: Single view of the right shoulder. COMPARISON: 05/06/2018. FINDINGS: There is a new right total shoulder arthroplasty in satisfactory position. No destructive or osteolytic lesions. Surgical clips right upper quadrant. IMPRESSION: New right total shoulder arthroplasty in satisfactory position. Dictated by Jose Damon MD @ Jul 16 2018 8:18AM Signed by Dr. Jose Damon @ Jul 16 2018 8:22AM
--- NOTE | 2018-07-16 10:38 | PCM.SURGPN ---
- General Info Date of Service: 07/15/18 POD#: 1 Post-Op Diagnosis: S/P right shoulder hemiarthroplasty Functional Status: Reports: Tolerating Diet - Review of Systems General: Reports: No Symptoms HEENT: Reports: No Symptoms Pulmonary: Reports: No Symptoms Cardiovascular: Reports: No Symptoms Gastrointestinal: Reports: No Symptoms Skin: Reports: No Symptoms Neurological: Reports: No Symptoms Psychiatric: Reports: No Symptoms (pain fairly well controlled, up in room today ) - Patient Data Vitals - Most Recent: Last Vital Signs Temp 35.3 C 07/16/18 07:39 Pulse 78 07/16/18 07:39 Resp 16 07/16/18 07:39 BP 100/63 07/16/18 07:39 Pulse Ox 97 07/16/18 07:39 Weight - Most Recent: 58.196 kg I&O - Last 24 Hours: Intake & Output 07/15/18 07/16/18 07/16/18 22:59 06:59 14:59 Intake Total 980 300 Balance 980 300 Med Orders - Current: Current Medications Albuterol (Ventolin Hfa) 0 gm INH Q4H PRN PRN Reason: Allergies Bandage/Support Products ( Nasal Home Connect Lpn) 1 applic NASBOTH BID [facility] Last Admin: 07/16/18 08:23 Dose: 1 applic Benzocaine/Menthol (Cepacol Sore Throat) 1 lozenge MUCMEM ASDIRECTED PRN PRN Reason: Sore Throat Last Admin: 07/14/18 14:23 Dose: 1 package Cyclobenzaprine HCl (Flexeril) 10 mg PO TID [facility] Last Admin: 07/16/18 08:20 Dose: 10 mg Fluticasone Propionate (Flonase) 0 gm NASBOTH DAILY PRN PRN Reason: Allergies Lactated Ringer's (Ringers, Lactated) 1,000 mls @ 75 mls/hr IV ASDIRECTED [facility] Last Admin: 07/14/18 11:00 Dose: 75 mls/hr Sodium Chloride (Normal Saline) 1,000 mls @ 125 mls/hr IV ASDIRECTED [facility] Morphine Sulfate (Morphine) 2 mg IVPUSH Q1H PRN PRN Reason: Pain (severe 7-10) Last Admin: 07/16/18 08:08 Dose: 2 mg Oxycodone/Acetaminophen (Percocet 325-5 Mg) 2 tab PO Q6H PRN PRN Reason: Pain Last Admin: 07/16/18 06:10 Dose: 2 tab Discontinued Medications Acetaminophen (Tylenol Extra Strength) 1,000 mg PO ONETIME ONE Stop: 07/14/18 06:11 Last Admin: 07/14/18 06:34 Dose: 1,000 mg Hydrocodone Bitart/Acetaminophen ([place] 325-5 Mg) 1 tab PO Q3H PRN PRN Reason: Pain Albuterol/Ipratropium (Duoneb 3.0-0.5 Mg/3 Ml) 3 ml NEB ONETIME ONE Stop: 07/14/18 07:31 Last Admin: 07/14/18 07:38 Dose: 3 ml Bandage/Support Products ( Nasal Home Connect Lpn) 1 applic NASBOTH BID [facility] Last Admin: 07/14/18 10:45 Dose: Not Given Bupivacaine HCl (Marcaine 0.5%) Confirm Administered Dose 30 ml .ROUTE .STK-MED ONE Stop: 07/14/18 07:27 Dexamethasone (Dexamethasone) Confirm Administered Dose 4 mg .ROUTE .STK-MED ONE Stop: 07/14/18 07:24 Fentanyl (Sublimaze) Confirm Administered Dose 250 mcg .ROUTE .STK-MED ONE Stop: 07/14/18 07:22 Glycopyrrolate (Robinul) Confirm Administered Dose 1 mg .ROUTE .STK-MED ONE Stop: 07/14/18 07:24 Clindamycin Phosphate 900 mg/ (Sodium Chloride) 106 mls @ 200 mls/hr IV ONETIME ONE Stop: 07/14/18 07:31 Last Admin: 07/14/18 08:00 Dose: 200 mls/hr Clindamycin Phosphate 900 mg/ (Sodium Chloride) 106 mls @ 200 mls/hr IV Q8H [facility] Stop: 07/15/18 08:32 Last Admin: 07/15/18 07:38 Dose: 200 mls/hr Lidocaine HCl (Xylocaine-Mpf 1%) Confirm Administered Dose 2 mls @ as directed .ROUTE .STK-MED ONE Stop: 07/14/18 10:15 Neostigmine Methylsulfate (Neostigmine) Confirm Administered Dose 5 mg .ROUTE .STK-MED ONE Stop: 07/14/18 07:24 Ondansetron HCl (Zofran) Confirm Administered Dose 4 mg .ROUTE .STK-MED ONE Stop: 07/14/18 07:24 Oxycodone/Acetaminophen (Percocet 325-5 Mg) 1 tab PO Q4H PRN PRN Reason: Pain (severe 7-10) Povidone Iodine (Betadine 10% Soln) Confirm Administered Dose 1 ml .ROUTE .STK- MED ONE Stop: 07/14/18 06:41 Last Admin: 07/14/18 08:34 Dose: 1 ml Propofol (Diprivan 20 Ml) Confirm Administered Dose 200 mg .ROUTE .STK-MED ONE Stop: 07/14/18 07:24 Rocuronium [place] (Zemuron) Confirm Administered Dose 50 mg .ROUTE .STK-MED ONE Stop: 07/14/18 07:24 Scopolamine (Transderm-Scop) 1.5 mg TOP Q72H [facility] Stop: 07/16/18 06:11 Last Admin: 07/14/18 06:34 Dose: 1.5 mg Succinylcholine Chloride (Quelicin) Confirm Administered Dose 200 mg .ROUTE .STK -MED ONE Stop: 07/14/18 07:24 - Exam Wound/Incisions: Healing Well, No Drainage General: Alert, Oriented HEENT: Pupils Equal Neck: Supple Skin: Warm, Dry, Intact Neurological: No New Focal Deficit Psy/Mental Status: Alert (incision looks very good, no drainage, minimal swelling), Normal Affect, Normal Mood - Problem List & Annotations (1) Status post right shoulder hemiarthroplasty SNOMED Code(s): 467667922 Code(s): Z96.611 - PRESENCE OF RIGHT ARTIFICIAL SHOULDER JOINT Status: Acute Current Visit: Yes (2) Avascular necrosis of right humeral head SNOMED Code(s): 28923683 Code(s): M87.021 - IDIOPATHIC ASEPTIC NECROSIS OF RIGHT HUMERUS Status: Acute Current Visit: No - Problem List Review Problem List Initiated/Reviewed/Updated: Yes - My Orders Last 24 Hours: Active Orders 24 hr Category Date Time Status Patient Status [ADT] Routine ADT 07/15/18 12:42 Active Ready for Discharge [RC] PER UNIT ROUTINE Care 07/16/18 10:26 Ordered Consult to Occupational Therapy [OT Evaluation and Cons 07/15/18 09:51 Active Treatment] [CONS] Routine Medication Orders Albuterol (Ventolin Hfa) 0 gm INH Q4H PRN PRN Reason: Allergies Bandage/Support Products ( Nasal Home Connect Lpn) 1 applic NASBOTH BID [facility] Last Admin: 07/16/18 08:23 Dose: 1 applic Admin: 07/15/18 20:54 Dose: 1 applic Admin: 07/15/18 10:01 Dose: 1 applic Admin: 07/14/18 22:04 Dose: 1 applic Benzocaine/Menthol (Cepacol Sore Throat) 1 lozenge MUCMEM ASDIRECTED PRN PRN Reason: Sore Throat Last Admin: 07/14/18 14:23 Dose: 1 package Cyclobenzaprine HCl (Flexeril) 10 mg PO TID [facility] Last Admin: 07/16/18 08:20 Dose: 10 mg Admin: 07/15/18 20:54 Dose: 10 mg Admin: 07/15/18 16:03 Dose: 10 mg Admin: 07/15/18 10:00 Dose: 10 mg Admin: 07/14/18 22:04 Dose: 10 mg Admin: 07/14/18 13:24 Dose: 10 mg Fluticasone Propionate (Flonase) 0 gm NASBOTH DAILY PRN PRN Reason: Allergies Lactated Ringer's (Ringers, Lactated) 1,000 mls @ 75 mls/hr IV ASDIRECTED [facility] Last Admin: 07/14/18 11:00 Dose: 75 mls/hr Infusion: 07/14/18 11:00 Dose: 75 mls/hr Admin: 07/14/18 06:32 Dose: 75 mls/hr Sodium Chloride (Normal Saline) 1,000 mls @ 125 mls/hr IV ASDIRECTED [facility] Morphine Sulfate (Morphine) 2 mg IVPUSH Q1H PRN PRN Reason: Pain (severe 7-10) Last Admin: 07/16/18 08:08 Dose: 2 mg Admin: 07/15/18 21:01 Dose: 2 mg Admin: 07/15/18 20:00 Dose: 2 mg Admin: 07/15/18 16:02 Dose: 2 mg Admin: 07/15/18 10:01 Dose: 2 mg Admin: 07/15/18 07:27 Dose: 2 mg Admin: 07/15/18 03:12 Dose: 2 mg Admin: 07/14/18 18:59 Dose: 2 mg Admin: 07/14/18 11:03 Dose: 2 mg Oxycodone/Acetaminophen (Percocet 325-5 Mg) 2 tab PO Q6H PRN PRN Reason: Pain Last Admin: 07/16/18 06:10 Dose: 2 tab Admin: 07/16/18 00:12 Dose: 2 tab Admin: 07/15/18 17:51 Dose: 2 tab Admin: 07/15/18 11:31 Dose: 2 tab Admin: 07/15/18 05:15 Dose: 2 tab Admin: 07/14/18 22:13 Dose: 2 tab Admin: 07/14/18 14:24 Dose: 2 tab - Assessment Assessment (Free Text/Narrative):: Doing fairly well post day one. Not independent getting in and out of bed. Does oK once up. - Plan Plan (Free Text/Narrative):: Continue PT/OT for ASDLs and safety with transfers out of bed. Home with Home Health tomorrow.
[2018-07-16 14:32] VITALS: BP 103/44
--- NOTE | 2018-07-20 08:30 | PCM.OPNOTE ---
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 The etiology of the AVN is assumed to be from steroid treatments for her lupus. Humeral head has shown progressive collapse over the past year. She now presents for hemiarthroplasty of the right shoulder. There is a small chance of total shoulder arthroplasty if significant damage is detected to the Risks, benefits and potential complications were discussed. She agrees to proceed. procedure. After adequate anesthesia was obtained patient was placed in a beachchair position. The right shoulder and arm were then prepped and draped in a stele fashion.Anterior incision was made and carried down through the subcutaneous tissues. Hemostasis was obtained with electrocautery.The cephalic vein was identified and dissected and retracted laterally with the deltoid. The clavi pectoral fascia was divided and a retractor was placed beneath the conjoined tendon and the deltoid. The biceps groove was identified. This was used as a landmark for the lesser tuberosity.Longitudinal incision was made in the subscapularis tendon approximately 1 cm from its attachment. Sutures were placed and used for retraction medially. Capsule was released from thor humeral head. The arm was externally rotated and the humeral head dislocated. This showed significant deformity of the head with large articular cartilage flaps Retractor was placed over the top protecting the biceps tendon. An awl was used to enter the humeral canal. The canal was then sequentially The last reamer was left in the humeral cutting guide secured. Reamer was removed and the humeral neck cut was then made. The removed portion of the humeral head again significant deformity with collapse and irregular articular surface with articular flaps. The glenoid was inspected. This showed minor fraying of the labrum without deformity.The metaphyseal reamer was utilized. a trial stem was thn placed. This showed in the humerus. The trial was removed. The shoulder was then irrigated. A Praveen trabecular metal stem was then press-fit into place. This showed excellent position and fit. Trial heads were then utilized.the final offset head was positioned and secured to the taper. Shoulder was reduced and taken through range of motion. He showed excellent stability and fit within the glenoid. Shoulder was irrigated once again. The subscapularis was then repaired back to the tendon with #1 Ethibond in interrupted fashion and oversewn in a running fashion. Skin was closed with 2-0 Vicryl and 3-0 Monocryl. Steri-Strips were applied. Sterile dressing was then placed. Patient was taken from the operating room in a stable ition there were no complications.
== END 2018-07-16 19:30 | disposition home or self-care (01) ==
LOC: JP.SDS 06:12 → JP.MS 09:10 → JP.SDS 07-15 12:42 → JP.MS 07-15 12:42
PROVIDERS: ADMIT Specialist; ATTEND Specialist
DX: M87.811 Other osteonecrosis, right shoulder (principal); J45.909 Unspecified asthma, uncomplicated; K21.9 Gastro-esophageal reflux disease without esophagitis; Z79.899 Other long term (current) drug therapy; Z88.1 Allergy status to other antibiotic agents; Z88.0 Allergy status to penicillin
CPT/HCPCS: 23470; 73020; 94640; 97110; 97162; 97530; 97535; A9270; J0330; J1100; J2270; J2405; J2704; J2710; J3010; J3490; J7030; J7120; 96365; 96366; C1776; G0378; J2001; J7620-GY

== ENCOUNTER 2020-01-05 11:40 | Observation (INO) | payer MEDICARE, OTHER, SELFPAY ==
--- NOTE | 2020-01-05 12:23 | EDM.PDOC ---
ED HPI GENERAL MEDICAL PROBLEM - General Chief Complaint: General Stated Complaint: WORN OUT/TIRED Time Seen by Provider: 01/05/20 12:23 Source of Information: Reports: Patient History Limitations: Reports: No Limitations - History of Present Illness INITIAL COMMENTS - FREE TEXT/NARRATIVE: 59 years old female patient presented to the ER with multiple complaints. Stated for the last week she has been feeling short of breath. Feeling her chest is congested which is not coughing. Denies any chest pain. Denies any sore throat runny nose or congestion. Denies any recent travel. No sick contact. Denies abdominal pain diarrhea or constipation. Denies any urinary symptom. Feeling weak all over. Denies any headache or visual changes. Denies any focal weakness or numbness anywhere. Generalized Pain Score (Numeric/FACES): 8 - Related Data Allergies Allergy/AdvReac Type Severity Reaction Status Date / Time hydroxychloroquine Allergy Cannot Verified 01/05/20 12:20 [From Plaquenil] Remember latex Allergy Rash Verified 01/05/20 12:20 Sulfa (Sulfonamide Allergy Cannot Verified 01/05/20 12:20 Antibiotics) Remember azithromycin [From Zithromax] AdvReac Intermediate Diarrhea Verified 01/05/20 12:20 amoxicillin AdvReac Abdominal Verified 01/05/20 16:23 Pain erythromycin base AdvReac Abdominal Verified 01/05/20 12:20 [Erythromycin Base] Pain Penicillins AdvReac Abdominal Verified 01/05/20 16:23 Pain Home Meds: Home Meds Cyclobenzaprine [Flexeril] 10 mg PO TID 09/11/15 [History] Albuterol [Proventil HFA] 1 - 2 puff INH Q4HR PRN 11/23/17 [History] Fluticasone Propionate [Flonase] 2 spray NASBOTH DAILY PRN 11/23/17 [History] oxyCODONE HCl/Acetaminophen [Percocet 5-325 mg Tablet] 1 each PO Q4HR PRN #40 tablet 07/16/18 [Rx] Nabumetone [Relafen] 500 mg PO BID 01/05/20 [History] Past Medical History HEENT History: Reports: None Cardiovascular History: Reports: None Respiratory History: Reports: Bronchitis, Recurrent Gastrointestinal History: Reports: Hepatitis Genitourinary History: Reports: None 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: Musculoskeletal History: Reports: Back Pain, Chronic, Osteoporosis, SLE Other Musculoskeletal History: R hip pain right shoulder pain Neurological History: Reports: Brain Injury, Other (See Below) Other Neuro History: 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 Psychiatric History: Reports: None Endocrine/Metabolic History: Reports: Osteoporosis Other Endocrine/Metabolic History: LUPUS Hematologic History: Reports: Blood Transfusion(s) Immunologic History: Reports: SLE Oncologic (Cancer) History: Reports: None Dermatologic History: Reports: None - Infectious Disease History Infectious Disease History: Reports: Chicken Pox, 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 ED EXAM, GENERAL - Physical Exam Exam: See Below Exam Limited By: No Limitations General Appearance: Alert, WD/WN, No Apparent Distress Ears: Normal External Exam, Normal Canal, Hearing Grossly Normal, Normal TMs Nose: Normal Inspection, Normal Mucosa, No Blood Throat/Mouth: Normal Inspection, Normal Lips, Normal Teeth, Normal Gums, Normal Oropharynx, Normal Voice, No Airway Compromise Head: Atraumatic, Normocephalic Neck: Normal Inspection, Supple, Non-Tender, Full Range of Motion Respiratory/Chest: No Respiratory Distress, Lungs Clear, Normal Breath Sounds, No Accessory Muscle Use, Chest Non-Tender Cardiovascular: Normal Peripheral Pulses, Regular Rate, Rhythm, No Edema, No Gallop, No JVD, No Murmur, No Rub GI/Abdominal: Normal Bowel Sounds, Soft, Non-Tender, No Organomegaly, No Distention, No Abnormal Bruit, No Mass Neurological: Alert, Oriented, CN II-XII Intact, Normal Cognition, Normal Gait, Normal Reflexes, No Motor/Sensory Deficits Skin Exam: Warm, Dry, Intact, Normal Color, No Rash Course - Vital Signs Last Recorded V/S: Last Vital Signs Temp 37.6 C 01/05/20 20:13 Pulse 101 H 01/05/20 20:13 Resp 18 01/05/20 20:13 BP 145/54 H 01/05/20 17:56 Pulse Ox 99 01/05/20 20:13 - Orders/Labs/Meds Orders: Active Orders 24 hr Category Date Time Status CULTURE BLOOD [BC] Urgent Lab 01/05/20 14:15 Received CULTURE BLOOD [BC] Urgent Lab 01/05/20 14:28 Received Blood Culture x2 Reflex Set [OM.PC] Urgent Oth 01/05/20 14:03 Ordered EKG 12 Lead [EK] Urgent Ther 01/05/20 12:24 Stop Req Medication Orders Acetaminophen (Tylenol) 650 mg PO Q4H PRN PRN Reason: Pain (Mild 1-3)/fever Albuterol (Proventil Neb Soln) 2.5 mg NEB Q4H PRN PRN Reason: Shortness Of Breath/wheezing Sodium Chloride (Normal Saline) 1,000 mls @ 100 mls/hr IV ASDIRECTED ADELSO Last Admin: 01/05/20 18:15 Dose: 100 mls/hr Documented by: SHERICE Lorazepam (Ativan) 0.5 mg IVPUSH Q4H PRN PRN Reason: Nausea/Vomiting Magnesium Hydroxide (Milk Of Magnesia) 30 ml PO Q12H PRN PRN Reason: Constipation Melatonin (Melatonin) 9 mg PO BEDTIME PRN PRN Reason: Sleep Non-Formulary Medication (Cyclobenzaprine [Flexeril]) 10 mg PO TID ADELSO Non-Formulary Medication (Fluticasone Propionate [Flonase]) 2 spray NASBOTH DAILY PRN PRN Reason: Allergies Non-Formulary Medication (Nabumetone [Relafen]) 500 mg PO BID ADELSO Ondansetron HCl (Zofran) 4 mg IV Q6H PRN PRN Reason: Nausea/Vomiting Ondansetron HCl (Zofran Odt) 4 mg PO Q6H PRN PRN Reason: Nausea able to take PO Oxycodone HCl (Oxycodone) 5 - 10 mg PO Q4H PRN PRN Reason: Pain Last Admin: 01/05/20 18:14 Dose: 10 mg Documented by: MERJAD Senna/Docusate Sodium (Senna Plus) 1 tab PO BID PRN PRN Reason: Constipation Labs: Laboratory Tests 01/05/20 01/05/20 01/05/20 Range/Units 12:42 12:42 12:42 WBC 5.4 (4.5-11.0) K/uL RBC 3.66 (3.30-5.50) M/uL Hgb 13.4 D (12.0-15.0) g/dL Hct 39.5 (36.0-48.0) % MCV 108 H (80-98) fL MCH 37 H (27-31) pg MCHC 34 (32-36) % Plt Count 108 L (150-400) K/uL Neut % (Auto) 68 H (36-66) % Lymph % (Auto) 19 L (24-44) % [place] % (Auto) 11 H (2-6) % Eos % (Auto) 0 L (2-4) % Baso % (Auto) 1 (0-1) % ESR (0-25) mm/hr Sodium 132 L (140-148) mmol/L Potassium 3.9 (3.6-5.2) mmol/L Chloride 91 L (100-108) mmol/L Carbon Dioxide 21 (21-32) mmol/L Anion Gap 23.9 H (5.0-14.0) mmol/L BUN 8 (7-18) mg/dL Creatinine 0.6 (0.6-1.0) mg/dL Est Cr Clr Drug Dosing 80.35 mL/min Estimated GFR (MDRD) > 60 (>60) Glucose 72 L (74-106) mg/dL Lactic Acid 3.6 H (0.4-2.0) mmol/L Calcium 9.1 (8.5-10.1) mg/dL Magnesium 1.9 (1.8-2.4) mg/dL Total Bilirubin 1.0 D (0.2-1.0) mg/dL AST 84 H D (15-37) U/L ALT 47 D (12-78) U/L Alkaline Phosphatase 77 (46-116) U/L Troponin I < 0.017 (0.000-0.056) ng/mL C-Reactive Protein (0.0-0.3) mg/dL Total Protein 7.5 (6.4-8.2) g/dL Albumin 4.1 (3.4-5.0) g/dL Globulin 3.4 (2.3-3.5) g/dL Albumin/Globulin Ratio 1.2 (1.2-2.2) Urine Color (YELLOW) Urine Appearance (CLEAR) Urine pH (5.0-8.0) Ur Specific [place] (1.008-1.030) Urine Protein (NEGATIVE) mg/dL Urine Glucose (UA) (NEGATIVE) mg/dL Urine Ketones (NEGATIVE) mg/dL Urine Occult Blood (NEGATIVE) Urine Nitrite (NEGATIVE) Urine Bilirubin (NEGATIVE) Urine Urobilinogen (0.2-1.0) EU/dL Ur Leukocyte Esterase (NEGATIVE) Urine RBC (0-5) Urine WBC (0-5) Ur Epithelial Cells Amorphous Sediment Urine Bacteria Urine Mucus SARS-CoV-2 RNA (AMIRA) (NEGATIVE) 01/05/20 01/05/20 01/05/20 Range/Units 12:48 13:55 14:32 WBC (4.5-11.0) K/uL RBC (3.30-5.50) M/uL Hgb (12.0-15.0) g/dL Hct (36.0-48.0) % MCV (80-98) fL MCH (27-31) pg MCHC (32-36) % Plt Count (150-400) K/uL Neut % (Auto) (36-66) % Lymph % (Auto) (24-44) % [place] % (Auto) (2-6) % Eos % (Auto) (2-4) % Baso % (Auto) (0-1) % ESR (0-25) mm/hr Sodium (140-148) mmol/L Potassium (3.6-5.2) mmol/L Chloride (100-108) mmol/L Carbon Dioxide (21-32) mmol/L Anion Gap (5.0-14.0) mmol/L BUN (7-18) mg/dL Creatinine (0.6-1.0) mg/dL Est Cr Clr Drug Dosing mL/min Estimated GFR (MDRD) (>60) Glucose (74-106) mg/dL Lactic Acid (0.4-2.0) mmol/L Calcium (8.5-10.1) mg/dL Magnesium (1.8-2.4) mg/dL Total Bilirubin (0.2-1.0) mg/dL AST (15-37) U/L ALT (12-78) U/L Alkaline Phosphatase (46-116) U/L Troponin I (0.000-0.056) ng/mL C-Reactive Protein 0.06 (0.0-0.3) mg/dL Total Protein (6.4-8.2) g/dL Albumin (3.4-5.0) g/dL Globulin (2.3-3.5) g/dL Albumin/Globulin Ratio (1.2-2.2) Urine Color Yellow (YELLOW) Urine Appearance Clear (CLEAR) Urine pH 6.0 (5.0-8.0) Ur Specific [place] 1.010 (1.008-1.030) Urine Protein Negative (NEGATIVE) mg/dL Urine Glucose (UA) Negative (NEGATIVE) mg/dL Urine Ketones 15 H (NEGATIVE) mg/dL Urine Occult Blood Trace-intact H (NEGATIVE) Urine Nitrite Negative (NEGATIVE) Urine Bilirubin Negative (NEGATIVE) Urine Urobilinogen 0.2 (0.2-1.0) EU/dL Ur Leukocyte Esterase Negative (NEGATIVE) Urine RBC 0-5 (0-5) Urine WBC 0-5 (0-5) Ur Epithelial Cells Not seen Amorphous Sediment Not seen Urine Bacteria Not seen Urine Mucus Rare SARS-CoV-2 RNA (AMIRA) Negative (NEGATIVE) 01/05/20 Range/Units 17:08 WBC (4.5-11.0) K/uL RBC (3.30-5.50) M/uL Hgb (12.0-15.0) g/dL Hct (36.0-48.0) % MCV (80-98) fL MCH (27-31) pg MCHC (32-36) % Plt Count (150-400) K/uL Neut % (Auto) (36-66) % Lymph % (Auto) (24-44) % [place] % (Auto) (2-6) % Eos % (Auto) (2-4) % Baso % (Auto) (0-1) % ESR 6 (0-25) mm/hr Sodium (140-148) mmol/L Potassium (3.6-5.2) mmol/L Chloride (100-108) mmol/L Carbon Dioxide (21-32) mmol/L Anion Gap (5.0-14.0) mmol/L BUN (7-18) mg/dL Creatinine (0.6-1.0) mg/dL Est Cr Clr Drug Dosing mL/min Estimated GFR (MDRD) (>60) Glucose (74-106) mg/dL Lactic Acid (0.4-2.0) mmol/L Calcium (8.5-10.1) mg/dL Magnesium (1.8-2.4) mg/dL Total Bilirubin (0.2-1.0) mg/dL AST (15-37) U/L ALT (12-78) U/L Alkaline Phosphatase (46-116) U/L Troponin I (0.000-0.056) ng/mL C-Reactive Protein (0.0-0.3) mg/dL Total Protein (6.4-8.2) g/dL Albumin (3.4-5.0) g/dL Globulin (2.3-3.5) g/dL Albumin/Globulin Ratio (1.2-2.2) Urine Color (YELLOW) Urine Appearance (CLEAR) Urine pH (5.0-8.0) Ur Specific [place] (1.008-1.030) Urine Protein (NEGATIVE) mg/dL Urine Glucose (UA) (NEGATIVE) mg/dL Urine Ketones (NEGATIVE) mg/dL Urine Occult Blood (NEGATIVE) Urine Nitrite (NEGATIVE) Urine Bilirubin (NEGATIVE) Urine Urobilinogen (0.2-1.0) EU/dL Ur Leukocyte Esterase (NEGATIVE) Urine RBC (0-5) Urine WBC (0-5) Ur Epithelial Cells Amorphous Sediment Urine Bacteria Urine Mucus SARS-CoV-2 RNA (AMIRA) (NEGATIVE) Meds: Medications Generic Name Dose Route Start Last Admin Trade Name Freq PRN Reason Stop Dose Admin Acetaminophen 650 mg 01/05/20 17:34 Tylenol PO Q4H PRN Pain (Mild 1-3)/fever Albuterol 2.5 mg 01/05/20 17:34 Proventil Neb Soln NEB Q4H PRN Shortness Of Breath/wheezing Sodium Chloride 1,000 mls @ 100 mls/hr 01/05/20 17:34 01/05/20 18:15 Normal Saline IV 100 mls/hr ASDIRECTED ADELSO Administration Lorazepam 0.5 mg 01/05/20 17:34 Ativan IVPUSH Q4H PRN Nausea/Vomiting Magnesium Hydroxide 30 ml 01/05/20 17:34 Milk Of Magnesia PO Q12H PRN Constipation Melatonin 9 mg 01/05/20 17:34 Melatonin PO BEDTIME PRN Sleep Non-Formulary Medication 10 mg 01/05/20 21:00 Cyclobenzaprine [Flexeril] PO TID ADELSO Non-Formulary Medication 2 spray 01/05/20 17:34 Fluticasone Propionate [Flonase] NASBOTH DAILY PRN Allergies Non-Formulary Medication 500 mg 01/05/20 21:00 Nabumetone [Relafen] PO BID ADELSO Ondansetron HCl 4 mg 01/05/20 17:34 Zofran IV Q6H PRN Nausea/Vomiting Ondansetron HCl 4 mg 01/05/20 17:34 Zofran Odt PO Q6H PRN Nausea able to take PO Oxycodone HCl 5 - 10 mg 01/05/20 17:34 01/05/20 18:14 Oxycodone PO 10 mg Q4H PRN Administration Pain Senna/Docusate Sodium 1 tab 01/05/20 17:34 Senna Plus PO BID PRN Constipation Discontinued Medications Generic Name Dose Route Start Last Admin Trade Name Freq PRN Reason Stop Dose Admin Sodium Chloride 1,000 mls @ 999 mls/hr 01/05/20 14:03 01/05/20 14:22 Normal Saline IV 01/05/20 15:03 999 mls/hr .BOLUS STA Administration Sodium Chloride 1,000 mls @ 999 mls/hr 01/05/20 17:15 Normal Saline IV 01/05/20 18:16 ASDIRECTED ADELSO Morphine Sulfate 2 mg 01/05/20 16:13 01/05/20 16:45 Morphine IVPUSH 01/05/20 16:14 2 mg ONETIME ONE Administration - Radiology Interpretation Free Text/Narrative:: Patient was seen and examined shortly after arrival. Stable. EKG, lab and imaging reviewed with the patient. Elevated lactic acid. Patient is slightly tachycardic. Concern about sepsis. Unknown source. Blood culture pending. Chest x-ray shows no acute infiltrate. Urine is negative. Covid 19 test is negative. environmental monitoring specialist shows a round off narrow complex tachycardia. The patient stated she has been having recurrent episodes of palpitation and she feels dizzy with it. Case was discussed with Dr. Espinal hospitalist production utility worker and he accepted admission for further management. He recommended to hold off on any antibiotics until he sees the patient. Patient agrees with the plan. Stable for admission. Departure - Departure Time of Disposition: 14:07 Disposition: Admitted As Inpatient 67 Condition: Fair Clinical Impression: Lactic acidosis, Tachycardia, Chest pain, Sepsis - Discharge Information Sepsis Event Note (ED) - Evaluation Sepsis Screening Result: No Definite Risk - Focused Exam Vital Signs: Vital Signs Temp Pulse Resp BP Pulse Ox 01/05/20 16:41 96 13 129/74 99 01/05/20 15:38 89 13 123/64 100 01/05/20 14:24 98 13 147/76 H 97 01/05/20 13:54 97 13 132/77 98 01/05/20 12:39 92 15 130/76 97 01/05/20 12:17 37.1 C 99 16 160/86 H 99 01/05/20 12:09 104 H 16 157/91 H 99 01/05/20 11:58 37.1 C 104 H 16 160/86 H 99 - My Orders Last 24 Hours: My Active Orders 01/05/20 12:24 EKG 12 Lead [EK] Urgent 01/05/20 14:03 Blood Culture x2 Reflex Set [OM.PC] Urgent 01/05/20 14:15 CULTURE BLOOD [BC] Urgent 01/05/20 14:28 CULTURE BLOOD [BC] Urgent - Assessment/Plan Last 24 Hours: My Active Orders 01/05/20 12:24 EKG 12 Lead [EK] Urgent 01/05/20 14:03 Blood Culture x2 Reflex Set [OM.PC] Urgent 01/05/20 14:15 CULTURE BLOOD [BC] Urgent 01/05/20 14:28 CULTURE BLOOD [BC] Urgent Plan: Admission to hospitalist production utility worker Dr. Espinal
--- NOTE | 2020-01-05 13:20 | CR ---
CHEST: 2 view CLINICAL HISTORY:SOB COMPARISON:2019 FINDINGS: The heart size, pulmonary vascularity and hilar structures are normal. No infiltrate effusion or pneumothorax is seen. IMPRESSION: No acute cardiopulmonary process.
[2020-01-05] MEDS ORDERED: Sodium Chloride 0.9% 1,000 ML IV STA (14:03)
[2020-01-05] MEDS ORDERED: Morphine 2 MG/ML SYRINGE IVPUSH ONE (16:13)
[2020-01-05] MEDS ORDERED: Sodium Chloride 0.9% 1,000 ML IV SCH (17:15)
--- NOTE | 2020-01-05 17:19 | PCM.HP.2 ---
H&P History of Present Illness - General Date of Service: 01/05/20 Admit Problem/Dx: Admission Diagnosis/Problem Admission Diagnosis/Problem Weakness Source of Information: Patient, Provider History Limitations: Reports: No Limitations - History of Present Illness Initial Comments - Free Text/Narative: CC: I feel awful HPI: Veronica presented to the emergency room with a variety of concerns including headache, fever to 101, muscle aches, joint aches, nausea and chest congestion. She reports mild shortness of breath and mild intermittent dry cough. Things have been getting worse over the last few days. She has not been eating or drinking well. She feels weak. She does not complain of any abdominal pain or chest pain. She is not aware of any sick contacts and has not traveled. She does admit that she has been out and about in the community for shopping and suc h. No change in bowel or bladder habits. No joint swelling that she is noticed. She has noticed that her heart seems to be pounding. She does feel dizzy with activity. Work-up in the emergency room has been fairly unremarkable. She does have an elevated lactic acid at 3.6. Platelets are slightly low. Chest x-ray was clear. COVID19 testing was negative. Sedimentation rate was normal. There was concern that she may have had a supraventricular tachycardia in the emergency room though strips appear more consistent with motion artifact. She is going to be admitted for observation. Generalized Pain Score (Numeric/FACES): 8 - Related Data Allergies/Adverse Reactions: Allergies Allergy/AdvReac Type Severity Reaction Status Date / Time hydroxychloroquine Allergy Cannot Verified 01/05/20 12:20 [From Plaquenil] Remember latex Allergy Rash Verified 01/05/20 12:20 Sulfa (Sulfonamide Allergy Cannot Verified 01/05/20 12:20 Antibiotics) Remember azithromycin [From Zithromax] AdvReac Intermediate Diarrhea Verified 01/05/20 12:20 amoxicillin AdvReac Abdominal Verified 01/05/20 16:23 Pain erythromycin base AdvReac Abdominal Verified 01/05/20 12:20 [Erythromycin Base] Pain Penicillins AdvReac Abdominal Verified 01/05/20 16:23 Pain Home Medications: Home Meds Cyclobenzaprine [Flexeril] 10 mg PO TID 09/11/15 [History] Albuterol [Proventil HFA] 1 - 2 puff INH Q4HR PRN 11/23/17 [History] Fluticasone Propionate [Flonase] 2 spray NASBOTH DAILY PRN 11/23/17 [History] oxyCODONE HCl/Acetaminophen [Percocet 5-325 mg Tablet] 1 each PO Q4HR PRN #40 tablet 07/16/18 [Rx] Nabumetone [Relafen] 500 mg PO BID 01/05/20 [History] Past Medical History HEENT History: Reports: None Cardiovascular History: Reports: None Respiratory History: Reports: Bronchitis, Recurrent Gastrointestinal History: Reports: Hepatitis Genitourinary History: Reports: None [employer]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: Musculoskeletal History: Reports: Back Pain, Chronic, Osteoporosis, SLE Other Musculoskeletal History: R hip pain right shoulder pain Neurological History: Reports: Brain Injury, Other (See Below) Other Neuro History: 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 Psychiatric History: Reports: None Endocrine/Metabolic History: Reports: Osteoporosis Other Endocrine/Metabolic History: LUPUS Hematologic History: Reports: Blood Transfusion(s) Immunologic History: Reports: SLE Oncologic (Cancer) History: Reports: None Dermatologic History: Reports: None - Infectious Disease History Infectious Disease History: Reports: Chicken Pox, 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 Pertinent positives and negatives are noted in the history of present illness. All other systems were reviewed and were negative except as noted. Exam - Exam Exam: See Below - Vital Signs Vital Signs: Last Vital Signs Temp 37.1 C 01/05/20 12:17 Pulse 96 01/05/20 16:41 Resp 13 01/05/20 16:41 BP 129/74 01/05/20 16:41 Pulse Ox 99 01/05/20 16:41 Weight: 49.8 kg - Exam Quality Assessment: No: Supplemental Oxygen General: Alert, Oriented, Cooperative. No: Mild Distress HEENT: Conjunctiva Clear. No: Mucosa Moist & Ethel (dry), Scleral Icterus Neck: Supple, Trachea Midline, Lymphadenopathy (one small pea sized node left mid neck ) Lungs: Clear to Auscultation, Normal Respiratory Effort. No: Crackles, Wheezing Cardiovascular: Regular Rate, Regular Rhythm, Systolic Murmur (mild left lower sternal border ) GI/Abdominal Exam: Normal Bowel Sounds, Soft, No Distention, Tender (mild across lower abdomen ) Back Exam: Normal Inspection, Full Range of Motion Extremities: No Pedal Edema. No: Joint Swelling, Increased Warmth Peripheral Pulses: 2+: Dorsalis Pedis (L), Dorsalis Pedis (R) Skin: Warm, Dry. No: Rash Neuro Extensive - Mental Status: Alert, Oriented x3, Nl Response to Commands Neuro Extensive - Motor, Sensory, Reflexes: No: Dysarthria, Abnormal Motor, Tremor Psychiatric: Alert, Normal Affect - Patient Data Lab Results Last 24 hrs: Laboratory Results - last 24 hr 01/05/20 01/05/20 01/05/20 Range/Units 12:42 12:42 12:42 WBC 5.4 (4.5-11.0) K/uL RBC 3.66 (3.30-5.50) M/uL Hgb 13.4 D (12.0-15.0) g/dL Hct 39.5 (36.0-48.0) % MCV 108 H (80-98) fL MCH 37 H (27-31) pg MCHC 34 (32-36) % Plt Count 108 L (150-400) K/uL Neut % (Auto) 68 H (36-66) % Lymph % (Auto) 19 L (24-44) % [place] % (Auto) 11 H (2-6) % Eos % (Auto) 0 L (2-4) % Baso % (Auto) 1 (0-1) % Sodium 132 L (140-148) mmol/L Potassium 3.9 (3.6-5.2) mmol/L Chloride 91 L (100-108) mmol/L Carbon Dioxide 21 (21-32) mmol/L Anion Gap 23.9 H (5.0-14.0) mmol/L BUN 8 (7-18) mg/dL Creatinine 0.6 (0.6-1.0) mg/dL Est Cr Clr Drug Dosing 80.35 mL/min Estimated GFR (MDRD) > 60 (>60) Glucose 72 L (74-106) mg/dL Lactic Acid 3.6 H (0.4-2.0) mmol/L Calcium 9.1 (8.5-10.1) mg/dL Magnesium 1.9 (1.8-2.4) mg/dL Total Bilirubin 1.0 D (0.2-1.0) mg/dL AST 84 H D (15-37) U/L ALT 47 D (12-78) U/L Alkaline Phosphatase 77 (46-116) U/L Troponin I < 0.017 (0.000-0.056) ng/mL C-Reactive Protein (0.0-0.3) mg/dL Total Protein 7.5 (6.4-8.2) g/dL Albumin 4.1 (3.4-5.0) g/dL Globulin 3.4 (2.3-3.5) g/dL Albumin/Globulin Ratio 1.2 (1.2-2.2) Urine Color (YELLOW) Urine Appearance (CLEAR) Urine pH (5.0-8.0) Ur Specific [place] (1.008-1.030) Urine Protein (NEGATIVE) mg/dL Urine Glucose (UA) (NEGATIVE) mg/dL Urine Ketones (NEGATIVE) mg/dL Urine Occult Blood (NEGATIVE) Urine Nitrite (NEGATIVE) Urine Bilirubin (NEGATIVE) Urine Urobilinogen (0.2-1.0) EU/dL Ur Leukocyte Esterase (NEGATIVE) Urine RBC (0-5) Urine WBC (0-5) Ur Epithelial Cells Amorphous Sediment Urine Bacteria Urine Mucus SARS-CoV-2 RNA (AMIRA) (NEGATIVE) 01/05/20 01/05/20 01/05/20 Range/Units 12:48 13:55 14:32 WBC (4.5-11.0) K/uL RBC (3.30-5.50) M/uL Hgb (12.0-15.0) g/dL Hct (36.0-48.0) % MCV (80-98) fL MCH (27-31) pg MCHC (32-36) % Plt Count (150-400) K/uL Neut % (Auto) (36-66) % Lymph % (Auto) (24-44) % [place] % (Auto) (2-6) % Eos % (Auto) (2-4) % Baso % (Auto) (0-1) % Sodium (140-148) mmol/L Potassium (3.6-5.2) mmol/L Chloride (100-108) mmol/L Carbon Dioxide (21-32) mmol/L Anion Gap (5.0-14.0) mmol/L BUN (7-18) mg/dL Creatinine (0.6-1.0) mg/dL Est Cr Clr Drug Dosing mL/min Estimated GFR (MDRD) (>60) Glucose (74-106) mg/dL Lactic Acid (0.4-2.0) mmol/L Calcium (8.5-10.1) mg/dL Magnesium (1.8-2.4) mg/dL Total Bilirubin (0.2-1.0) mg/dL AST (15-37) U/L ALT (12-78) U/L Alkaline Phosphatase (46-116) U/L Troponin I (0.000-0.056) ng/mL C-Reactive Protein 0.06 (0.0-0.3) mg/dL Total Protein (6.4-8.2) g/dL Albumin (3.4-5.0) g/dL Globulin (2.3-3.5) g/dL Albumin/Globulin Ratio (1.2-2.2) Urine Color Yellow (YELLOW) Urine Appearance Clear (CLEAR) Urine pH 6.0 (5.0-8.0) Ur Specific [place] 1.010 (1.008-1.030) Urine Protein Negative (NEGATIVE) mg/dL Urine Glucose (UA) Negative (NEGATIVE) mg/dL Urine Ketones 15 H (NEGATIVE) mg/dL Urine Occult Blood Trace-intact H (NEGATIVE) Urine Nitrite Negative (NEGATIVE) Urine Bilirubin Negative (NEGATIVE) Urine Urobilinogen 0.2 (0.2-1.0) EU/dL Ur Leukocyte Esterase Negative (NEGATIVE) Urine RBC 0-5 (0-5) Urine WBC 0-5 (0-5) Ur Epithelial Cells Not seen Amorphous Sediment Not seen Urine Bacteria Not seen Urine Mucus Rare SARS-CoV-2 RNA (AMIRA) Negative (NEGATIVE) Result Diagrams: 01/05/20 12:42 01/05/20 12:42 Imaging Impressions Last 24 hrs: CXR-images personally reviewed-lungs are clear with no mass, infiltrate or effusion. Heart size is normal. EKG INTERPRETATION EKG Date: 01/05/20 Rhythm: NSR Rate (Beats/Min): 88 [place]: Normal P-Wave: Present QRS: Normal ST-T: Normal QT: Normal Sepsis Event Note - Evaluation Sepsis Screening Result: No Definite Risk - Focused Exam Vital Signs: Vital Signs Temp Pulse Resp BP Pulse Ox 01/05/20 16:41 96 13 129/74 99 01/05/20 15:38 89 13 123/64 100 01/05/20 14:24 98 13 147/76 H 97 01/05/20 13:54 97 13 132/77 98 01/05/20 12:39 92 15 130/76 97 01/05/20 12:17 37.1 C 99 16 160/86 H 99 01/05/20 12:09 104 H 16 157/91 H 99 01/05/20 11:58 37.1 C 104 H 16 160/86 H 99 *Q Meaningful Use (ADM) - VTE Risk Assess *Q Each Risk Factor Represents 1 Point: Age 41 - 59 years, Abnormal Pulmonary Function (COPD) Total Score 1 Point Risk Factors: 2 Each Risk Factor Represents 2 Points: None Total Score 2 Point Risk Factors: 0 Each Risk Factor Represents 3 Points: None Total Score 3 Point Risk Factors: 0 Each Risk Factor Represents 5 Points: None Total Score 5 Point Risk Factors: 0 Venous Thromboembolism Risk Factor Score *Q: 2 - Problem List (1) Weakness SNOMED Code(s): 22431136 ICD Code: R53.1 - WEAKNESS Status: Acute Current Visit: Yes (2) Generalized body aches SNOMED Code(s): 58542085 ICD Code: R52 - PAIN, UNSPECIFIED Status: Acute Current Visit: Yes (3) Lactic acidosis SNOMED Code(s): 03382029 ICD Code: E87.2 - ACIDOSIS Status: Acute Current Visit: Yes (4) Lupus (systemic lupus erythematosus) SNOMED Code(s): 54243634 ICD Code: M32.9 - SYSTEMIC LUPUS ERYTHEMATOSUS, UNSPECIFIED Status: Chronic Priority: High Current Visit: No Qualifiers: Systemic lupus erythematosus type: other Systemic lupus erythematosus organ involvement: unspecified Qualified Code(s): M32.8 - Other forms of systemic lupus erythematosus Problem List Initiated/Reviewed/Updated: Yes Orders Last 24hrs: Active Orders 24 hr Category Date Time Status Patient Status Manage Transfer [TRANSFER] Routine ADT 01/05/20 17:09 Ordered EKG Documentation Completion [RC] ASDIRECTED Care 01/05/20 12:26 Active CULTURE BLOOD [BC] Urgent Lab 01/05/20 14:15 Received CULTURE BLOOD [BC] Urgent Lab 01/05/20 14:28 Received ESR [SEDIMENTATION RATE MANUAL] [HEME] Routine Lab 01/05/20 17:08 Received Sodium Chloride 0.9% [Normal Saline] 1,000 ml Med 01/05/20 17:15 Active IV ASDIRECTED Blood Culture x2 Reflex Set [OM.PC] Urgent Oth 01/05/20 14:03 Ordered Resuscitation Status Routine Resus Stat 01/05/20 17:11 Ordered EKG 12 Lead [EK] Urgent Ther 01/05/20 12:24 Ordered Medication Orders Sodium Chloride (Normal Saline) 1,000 mls @ 999 mls/hr IV ASDIRECTED ADELSO Stop: 01/05/20 18:16 Assessment/Plan Comment:: ASSESSMENT AND PLAN - Weakness, body aches, congestion and fever-labs are normal. Examination is benign. Markers of inflammation are low. Chest x-ray is clear. Sounds like it could be a viral syndrome. No obvious evidence for infection. She does have an elevated lactic acid which I think is probably more related to dehydration with poor intake. Subjective weakness but overall seems to be doing okay. -Continue IV fluids -Symptomatic management of pain and nausea -Repeat lactic acid level this evening Possible supraventricular tachycardia-concern from the emergency room that she may have had a tacky dysrhythmia but review of the strips looks to be more consistent with motion artifact to me. Patient feels well at this time. -Cardiac monitoring overnight Systemic lupus erythematosus-chronic and has been stable. She does not think this feels quite like a lupus flare. Markers of inflammation are quite low. -Pain management Maintenance issues - - DVT prophylaxis -mechanical - GI prophylaxis -PPI - Nutrition -regular - Navarrete catheter -not indicated CODE STATUS -full code Admission justification -patient will be referred observation status for additional hydration and cardiac monitoring Disposition -anticipate discharge home tomorrow Primary care physician -Dr Washington Espinal M.D. - Mortality Measure Prognosis:: Good
[2020-01-05] MEDS ORDERED: LORazepam 2 MG/ML SDV IVPUSH PRN (17:34)
[2020-01-05] MEDS ORDERED: Magnesium Hydroxide 400 MG/5 ML Susp 30 ML Cup PO PRN (17:34)
[2020-01-05] MEDS ORDERED: Ondansetron 4 MG/2 ML SDV IV PRN (17:34)
[2020-01-05] MEDS ORDERED: Ondansetron 4 MG Tab.DIS PO PRN (17:34)
[2020-01-05] MEDS: oxyCODONE 5 MG Tab PO PRN ×2 (18:14→22:22)
[2020-01-05] MEDS: Sodium Chloride 0.9% 1,000 ML IV SCH (18:15)
[2020-01-05] MEDS ORDERED: NABUMETONE 500 MG PO SCH (21:00)
[2020-01-05] MEDS ORDERED: Non-Formulary Medication 1 Each (Cyclobenzaprine [Flexeril] 10 MG) PO SCH (21:00)
[2020-01-05] MEDS: Albuterol 0.083% 2.5 MG/3 ML Neb Soln NEB PRN (21:57)
[2020-01-05] MEDS: Melatonin 3 MG Tab PO PRN (22:23)
[2020-01-06] MEDS: oxyCODONE 5 MG Tab PO PRN ×5 (03:01→20:07)
[2020-01-06] MEDS: Sodium Chloride 0.9% 1,000 ML IV SCH (03:03)
[2020-01-06] MEDS: Cyclobenzaprine 10 MG Tab PO SCH ×3 (10:10→21:48)
--- NOTE | 2020-01-06 15:25 | PCM.PN ---
- General Info Date of Service: 01/06/20 Subjective Update: No acute events overnight. Patient still feels a little congested in her chest and is mildly short of breath. There has been no hypoxia. She has occasional palpitations but cardiac monitoring has been normal. Appetite is not great. No fevers. She feels weak and dizzy. Repeat labs remarkable for low normal white blood cell count and low platelets. Functional Status: Reports: Pain Controlled, Tolerating Diet - Review of Systems General: Reports: Weakness - Patient Data Vitals - Most Recent: Last Vital Signs Temp 37.0 C 01/06/20 12:41 Pulse 81 01/06/20 12:41 Resp 20 01/06/20 12:41 BP 125/61 01/06/20 12:41 Pulse Ox 100 01/06/20 12:41 Weight - Most Recent: 49.8 kg I&O - Last 24 Hours: Intake & Output 01/06/20 01/06/20 01/06/20 06:59 14:59 22:59 Intake Total 1150 300 Output Total 825 1650 Balance 325 -1350 Lab Results Last 24 Hours: Laboratory Results - last 24 hr 01/05/20 01/05/20 01/06/20 Range/Units 17:08 19:00 04:00 WBC 4.0 L (4.5-11.0) K/uL RBC 3.43 (3.30-5.50) M/uL Hgb 12.6 (12.0-15.0) g/dL Hct 37.3 (36.0-48.0) % MCV 109 H (80-98) fL MCH 37 H (27-31) pg MCHC 34 (32-36) % Plt Count 66 L (150-400) K/uL ESR 6 (0-25) mm/hr Sodium (140-148) mmol/L Potassium (3.6-5.2) mmol/L Chloride (100-108) mmol/L Carbon Dioxide (21-32) mmol/L Anion Gap (5.0-14.0) mmol/L BUN (7-18) mg/dL Creatinine (0.6-1.0) mg/dL Est Cr Clr Drug Dosing mL/min Estimated GFR (MDRD) (>60) Glucose (74-106) mg/dL Lactic Acid 1.7 (0.4-2.0) mmol/L Calcium (8.5-10.1) mg/dL 01/06/20 Range/Units 04:00 WBC (4.5-11.0) K/uL RBC (3.30-5.50) M/uL Hgb (12.0-15.0) g/dL Hct (36.0-48.0) % MCV (80-98) fL MCH (27-31) pg MCHC (32-36) % Plt Count (150-400) K/uL ESR (0-25) mm/hr Sodium 135 L (140-148) mmol/L Potassium 3.8 (3.6-5.2) mmol/L Chloride 97 L (100-108) mmol/L Carbon Dioxide 26 (21-32) mmol/L Anion Gap 15.8 H (5.0-14.0) mmol/L BUN 6 L (7-18) mg/dL Creatinine 0.7 (0.6-1.0) mg/dL Est Cr Clr Drug Dosing 68.87 mL/min Estimated GFR (MDRD) > 60 (>60) Glucose 87 (74-106) mg/dL Lactic Acid (0.4-2.0) mmol/L Calcium 9.2 (8.5-10.1) mg/dL Donal Results Last 24 Hours: Microbiology 01/05/20 14:28 Aerobic Blood Culture - Preliminary Blood - Arm, Left NO GROWTH AFTER 1 DAY Anaerobic Blood Culture - Preliminary NO GROWTH AFTER 1 DAY 01/05/20 14:15 Aerobic Blood Culture - Preliminary Blood - Venous - Iv Start NO GROWTH AFTER 1 DAY Anaerobic Blood Culture - Preliminary NO GROWTH AFTER 1 DAY Med Orders - Current: Current Medications Acetaminophen (Tylenol) 650 mg PO Q4H PRN PRN Reason: Pain (Mild 1-3)/fever Albuterol (Proventil Neb Soln) 2.5 mg NEB Q4H PRN PRN Reason: Shortness Of Breath/wheezing Last Admin: 01/05/20 21:57 Dose: 2.5 mg Documented by: Cyclobenzaprine HCl (Flexeril) 10 mg PO TID ADELSO Last Admin: 01/06/20 14:32 Dose: 10 mg Documented by: Fluticasone Propionate (Flonase) 0 gm NASBOTH DAILY PRN PRN Reason: ALLERGIES Sodium Chloride (Normal Saline) 1,000 mls @ 50 mls/hr IV ASDIRECTED [facility] Lorazepam (Ativan) 0.5 mg IVPUSH Q4H PRN PRN Reason: Nausea/Vomiting Magnesium Hydroxide (Milk Of Magnesia) 30 ml PO Q12H PRN PRN Reason: Constipation Melatonin (Melatonin) 9 mg PO BEDTIME PRN PRN Reason: Sleep Last Admin: 01/05/20 22:23 Dose: 9 mg Documented by: Nabumetone (Relafen) 500 mg PO BID [facility] Last Admin: 01/06/20 10:10 Dose: 500 mg Documented by: Ondansetron HCl (Zofran) 4 mg IV Q6H PRN PRN Reason: Nausea/Vomiting Ondansetron HCl (Zofran Odt) 4 mg PO Q6H PRN PRN Reason: Nausea able to take PO Oxycodone HCl (Oxycodone) 5 - 10 mg PO Q4H PRN PRN Reason: Pain Last Admin: 01/06/20 12:00 Dose: 10 mg Documented by: Senna/Docusate Sodium (Senna Plus) 1 tab PO BID PRN PRN Reason: Constipation Discontinued Medications Sodium Chloride (Normal Saline) 1,000 mls @ 999 mls/hr IV .BOLUS STA Stop: 01/05/20 15:03 Last Admin: 01/05/20 14:22 Dose: 999 mls/hr Documented by: Sodium Chloride (Normal Saline) 1,000 mls @ 999 mls/hr IV ASDIRECTED [facility] Stop: 01/05/20 18:16 Sodium Chloride (Normal Saline) 1,000 mls @ 100 mls/hr IV ASDIRECTED [facility] Last Admin: 01/06/20 03:03 Dose: 100 mls/hr Documented by: Morphine Sulfate (Morphine) 2 mg IVPUSH ONETIME ONE Stop: 01/05/20 16:14 Last Admin: 01/05/20 16:45 Dose: 2 mg Documented by: - Exam Quality Assessment: No: Supplemental Oxygen General: Alert, Oriented, Cooperative, No Acute Distress Lungs: Clear to Auscultation, Normal Respiratory Effort Cardiovascular: Regular Rate, Regular Rhythm GI/Abdominal Exam: Soft, No Distention Extremities: No Pedal Edema. No: Increased Warmth Skin: Warm, Dry Psy/Mental Status: Alert, Normal Affect Sepsis Event Note - Evaluation Sepsis Screening Result: No Definite Risk - Focused Exam Vital Signs: Vital Signs Temp Pulse Resp BP Pulse Ox 01/06/20 12:41 37.0 C 81 20 125/61 100 01/06/20 07:19 36.3 C 80 16 142/47 H 100 - Problem List & Annotations (1) Weakness SNOMED Code(s): 70841711 Code(s): R53.1 - WEAKNESS Status: Acute Current Visit: Yes (2) Generalized body aches SNOMED Code(s): 14097944 Code(s): R52 - PAIN, UNSPECIFIED Status: Acute Current Visit: Yes (3) Lactic acidosis SNOMED Code(s): 99161705 Code(s): E87.2 - ACIDOSIS Status: Acute Current Visit: Yes (4) Lupus (systemic lupus erythematosus) SNOMED Code(s): 51951272 Code(s): M32.9 - SYSTEMIC LUPUS ERYTHEMATOSUS, UNSPECIFIED Status: Chronic Priority: High Current Visit: No Qualifiers: Systemic lupus erythematosus type: other Systemic lupus erythematosus organ involvement: unspecified Qualified Code(s): M32.8 - Other forms of systemic lupus erythematosus - Problem List Review Problem List Initiated/Reviewed/Updated: Yes - My Orders Last 24 Hours: My Active Orders 01/05/20 Dinner Regular Diet [DIET] 01/05/20 17:11 Resuscitation Status Routine 01/05/20 17:34 Acetaminophen [TylenoL] 650 mg PO Q4H PRN Albuterol [Proventil Neb Soln] 2.5 mg NEB Q4H PRN Docusate Sodium/Sennosides [Senna Plus] 1 tab PO BID PRN LORazepam [Ativan] 0.5 mg IVPUSH Q4H PRN Magnesium Hydroxide [Milk of Magnesia] 30 ml PO Q12H PRN Melatonin 9 mg PO BEDTIME PRN Ondansetron [Zofran ODT] 4 mg PO Q6H PRN Ondansetron [Zofran] 4 mg IV Q6H PRN oxyCODONE 5 - 10 mg PO Q4H PRN 01/05/20 17:34 Patient Status [ADT] Routine Antiembolic Devices [RC] .Routine Intake and Output [RC] QSHIFT Notify Provider Vital Signs [RC] ASDIRECTED Oxygen Therapy [RC] PRN RT Aerosol Therapy [RC] ASDIRECTED Up With Assistance [RC] ASDIRECTED VTE/DVT Education [RC] Per Unit Routine Vital Signs [RC] Q4H Sequential Compression Device [OM.PC] Routine 01/06/20 07:00 PT Evaluation and Treatment [CONS] Routine 01/06/20 08:25 Fluticasone Propionate [Flonase] 0 gm NASBOTH DAILY PRN 01/06/20 09:00 Cyclobenzaprine [Flexeril] 10 mg PO TID Nabumetone [Relafen] 500 mg PO BID 01/06/20 15:24 Discontinue Telemetry Monitoring [Cardiac Monitoring Discontinue] [RC] Click to Edit 01/06/20 15:30 Sodium Chloride 0.9% [Normal Saline] 1,000 ml IV ASDIRECTED 01/07/20 05:00 BASIC METABOLIC PANEL,BMP [CHEM] Timed CBC W/O DIFF,HEMOGRAM [HEME] Timed (1) - Plan Plan:: ASSESSMENT AND PLAN - Weakness, body aches, congestion and fever-labs are normal other than borderline low white blood cell count and low platelets. Examination is benign. Markers of inflammation are low. Suspect viral syndrome with no obvious source for infection. COVID19 testing was negative. -Continue gentle IV fluids -Symptomatic management of pain and nausea Possible supraventricular tachycardia-initially concern in the emergency room but this was just artifact. No issues overnight. -Discontinue cardiac monitoring Systemic lupus erythematosus-chronic and has been stable. Inflammatory markers are very low so this is likely stable. -Pain management Maintenance issues - - DVT prophylaxis -mechanical - GI prophylaxis -PPI - Nutrition -regular Admission justification -patient will be referred observation status for additional hydration and symptomatic management Disposition -anticipate discharge home tomorrow if stable overnight Primary care physician -Dr Washington Espinal M.D.
[2020-01-06] MEDS ORDERED: Sodium Chloride 0.9% 1,000 ML IV SCH (15:30)
[2020-01-06] MEDS: Albuterol 0.083% 2.5 MG/3 ML Neb Soln NEB PRN (16:38)
[2020-01-07] MEDS: oxyCODONE 5 MG Tab PO PRN ×6 (00:07→20:07)
[2020-01-07] MEDS: Fluticasone Propionate Nasal Spray 16 GM Bottle NASBOTH PRN ×2 (00:23→08:45)
[2020-01-07] MEDS ORDERED: Potassium Chloride 20 MEQ Tab.ER PO ONE ×2 (05:56→15:52)
[2020-01-07] MEDS ORDERED: Potassium Chloride 10% 20 MEQ/15 ML Soln 15 ML UD Cup PO ONE (05:56)
[2020-01-07] MEDS ORDERED: Potassium Chloride 20 MEQ in Premix Bag 1 BAG IV ONE (06:08)
[2020-01-07] MEDS: Acetaminophen 325 MG Tab PO PRN ×4 (07:59→20:06)
[2020-01-07] MEDS: Cyclobenzaprine 10 MG Tab PO SCH ×3 (08:45→20:06)
--- NOTE | 2020-01-07 12:34 | PCM.PN ---
- General Info Date of Service: 01/07/20 Subjective Update: No acute events overnight. Low-grade temperature elevations but no fevers. Potassium is low this morning. White count and platelets are slightly lower but essentially stable. Patient continues to endorse palpitations, chest pressure, weakness and shakiness. Vital signs have all been stable. Appetite has been good. She has been able to get around with a standby assist. She feels very nervous about going home. Functional Status: Reports: Pain Controlled, Tolerating Diet - Review of Systems General: Reports: Weakness Neurological: Reports: Dizziness - Patient Data Vitals - Most Recent: Last Vital Signs Temp 37.2 C 01/07/20 07:28 Pulse 79 01/07/20 07:28 Resp 12 01/07/20 07:28 BP 113/67 01/07/20 07:28 Pulse Ox 99 01/07/20 07:28 Weight - Most Recent: 49.8 kg I&O - Last 24 Hours: Intake & Output 01/06/20 01/07/20 01/07/20 22:59 06:59 14:59 Intake Total 600 2239 240 Output Total 500 400 Balance 100 1839 240 Lab Results Last 24 Hours: Laboratory Results - last 24 hr 01/07/20 01/07/20 Range/Units 04:05 04:05 WBC 3.0 L (4.5-11.0) K/uL RBC 3.10 L (3.30-5.50) M/uL Hgb 11.3 L (12.0-15.0) g/dL Hct 34.3 L (36.0-48.0) % MCV 111 H (80-98) fL MCH 37 H (27-31) pg MCHC 33 (32-36) % Plt Count 59 L (150-400) K/uL Sodium 140 (140-148) mmol/L Potassium 2.7 L* (3.6-5.2) mmol/L Chloride 101 (100-108) mmol/L Carbon Dioxide 31 (21-32) mmol/L Anion Gap 10.7 (5.0-14.0) mmol/L BUN 6 L (7-18) mg/dL Creatinine 0.6 (0.6-1.0) mg/dL Est Cr Clr Drug Dosing 80.35 mL/min Estimated GFR (MDRD) > 60 (>60) Glucose 149 H (74-106) mg/dL Calcium 9.3 (8.5-10.1) mg/dL Donal Results Last 24 Hours: Microbiology 01/05/20 14:28 Aerobic Blood Culture - Preliminary Blood - Arm, Left NO GROWTH AFTER 1 DAY Anaerobic Blood Culture - Preliminary NO GROWTH AFTER 1 DAY 01/05/20 14:15 Aerobic Blood Culture - Preliminary Blood - Venous - Iv Start NO GROWTH AFTER 1 DAY Anaerobic Blood Culture - Preliminary NO GROWTH AFTER 1 DAY Med Orders - Current: Current Medications Acetaminophen (Tylenol) 650 mg PO Q4H PRN PRN Reason: Pain (Mild 1-3)/fever Last Admin: 01/07/20 12:16 Dose: 650 mg Documented by: Albuterol (Proventil Neb Soln) 2.5 mg NEB Q4H PRN PRN Reason: Shortness Of Breath/wheezing Last Admin: 01/06/20 16:38 Dose: 2.5 mg Documented by: Cyclobenzaprine HCl (Flexeril) 10 mg PO TID [facility] Last Admin: 01/07/20 08:45 Dose: 10 mg Documented by: Fluticasone Propionate (Flonase) 0 gm NASBOTH DAILY PRN PRN Reason: ALLERGIES Last Admin: 01/07/20 08:45 Dose: 2 spray Documented by: Sodium Chloride (Normal Saline) 1,000 mls @ 50 mls/hr IV ASDIRECTED [facility] Last Admin: 01/07/20 08:02 Dose: 50 mls/hr Documented by: Lorazepam (Ativan) 0.5 mg IVPUSH Q4H PRN PRN Reason: Nausea/Vomiting Magnesium Hydroxide (Milk Of Magnesia) 30 ml PO Q12H PRN PRN Reason: Constipation Melatonin (Melatonin) 9 mg PO BEDTIME PRN PRN Reason: Sleep Last Admin: 01/05/20 22:23 Dose: 9 mg Documented by: Nabumetone (Relafen) 500 mg PO BID [facility] Last Admin: 01/07/20 08:45 Dose: 500 mg Documented by: Ondansetron HCl (Zofran) 4 mg IV Q6H PRN PRN Reason: Nausea/Vomiting Ondansetron HCl (Zofran Odt) 4 mg PO Q6H PRN PRN Reason: Nausea able to take PO Oxycodone HCl (Oxycodone) 5 - 10 mg PO Q4H PRN PRN Reason: Pain Last Admin: 01/07/20 12:13 Dose: 10 mg Documented by: Senna/Docusate Sodium (Senna Plus) 1 tab PO BID PRN PRN Reason: Constipation Discontinued Medications Sodium Chloride (Normal Saline) 1,000 mls @ 999 mls/hr IV .BOLUS STA Stop: 01/05/20 15:03 Last Admin: 01/05/20 14:22 Dose: 999 mls/hr Documented by: Sodium Chloride (Normal Saline) 1,000 mls @ 999 mls/hr IV ASDIRECTED [facility] Stop: 01/05/20 18:16 Sodium Chloride (Normal Saline) 1,000 mls @ 100 mls/hr IV ASDIRECTED [facility] Last Admin: 01/06/20 03:03 Dose: 100 mls/hr Documented by: Potassium Chloride 20 meq/ (Premix) 100 mls @ 50 mls/hr IV ONETIME ONE Stop: 01/07/20 08:07 Last Admin: 01/07/20 06:24 Dose: 50 mls/hr Documented by: Lidocaine HCl (Xylocaine-Mpf 1%) 5 ml INJECT ONETIME ONE Stop: 01/07/20 05:58 Last Admin: 01/07/20 06:24 Dose: 5 ml Documented by: Morphine Sulfate (Morphine) 2 mg IVPUSH ONETIME ONE Stop: 01/05/20 16:14 Last Admin: 01/05/20 16:45 Dose: 2 mg Documented by: Potassium Chloride (Klor-Con M20) 40 meq PO ONETIME ONE Stop: 01/07/20 05:57 Last Admin: 01/07/20 06:22 Dose: 40 meq Documented by: Potassium Chloride (Potassium Chloride Solution) 20 meq PO ONETIME ONE Stop: 01/07/20 05:57 Last Admin: 01/07/20 07:04 Dose: Not Given Documented by: - Exam Quality Assessment: No: Supplemental Oxygen General: Alert, Oriented, Cooperative, No Acute Distress Lungs: Normal Respiratory Effort Cardiovascular: Regular Rate, Regular Rhythm GI/Abdominal Exam: Soft, No Distention Extremities: No Pedal Edema Psy/Mental Status: Alert, Normal Affect Sepsis Event Note - Evaluation Sepsis Screening Result: No Definite Risk - Focused Exam Vital Signs: Vital Signs Temp Pulse Resp BP BP Pulse Ox 01/07/20 07:28 37.2 C 79 12 113/67 99 01/07/20 03:00 36.8 C 86 16 112/78 97 - Problem List & Annotations (1) Weakness SNOMED Code(s): 26045748 Code(s): R53.1 - WEAKNESS Status: Acute Current Visit: Yes (2) Generalized body aches SNOMED Code(s): 40146669 Code(s): R52 - PAIN, UNSPECIFIED Status: Acute Current Visit: Yes (3) Lactic acidosis SNOMED Code(s): 03741214 Code(s): E87.2 - ACIDOSIS Status: Acute Current Visit: Yes (4) Lupus (systemic lupus erythematosus) SNOMED Code(s): 57548069 Code(s): M32.9 - SYSTEMIC LUPUS ERYTHEMATOSUS, UNSPECIFIED Status: Chronic Priority: High Current Visit: No Qualifiers: Systemic lupus erythematosus type: other Systemic lupus erythematosus organ involvement: unspecified Qualified Code(s): M32.8 - Other forms of systemic lupus erythematosus - Problem List Review Problem List Initiated/Reviewed/Updated: Yes - My Orders Last 24 Hours: My Active Orders 01/06/20 15:24 Discontinue Telemetry Monitoring [Cardiac Monitoring Discontinue] [RC] Click to Edit 01/06/20 15:30 Sodium Chloride 0.9% [Normal Saline] 1,000 ml IV ASDIRECTED 01/07/20 12:32 Convert IV to Saline Lock [OM.PC] Routine 01/07/20 12:33 Ambulate [RC] QID 01/07/20 15:00 POTASSIUM,K [CHEM] Timed 01/08/20 05:00 BASIC METABOLIC PANEL,BMP [CHEM] Timed CBC W/O DIFF,HEMOGRAM [HEME] Timed (1) - Plan Plan:: ASSESSMENT AND PLAN - Weakness, body aches, congestion and fever-labs are normal other than borderline low white blood cell count and low platelets. Examination is benign. Markers of inflammation are low. Still suspect viral syndrome. Most of her concerns are subjective things and objectively she looks pretty good. She feels weak and would think she would benefit from a little bit more physical therapy before going home. -Saline lock IV -Physical therapy -Ambulate 4 times a day -Symptomatic management of pain and nausea Hypokalemia-she has received supplementation this morning and the plan is to recheck this afternoon and replace as indicated. Systemic lupus erythematosus-chronic and has been stable. Inflammatory markers are very low so this is likely stable. -Pain management Maintenance issues - - DVT prophylaxis -mechanical - GI prophylaxis -PPI - Nutrition -regular Admission justification -patient will be referred observation status for potassium supplementation and physical therapy Disposition -anticipate discharge home tomorrow if stable overnight Primary care physician -Dr Washington Espinal M.D.
[2020-01-07] MEDS: Melatonin 3 MG Tab PO PRN (20:06)
[2020-01-08] MEDS: Acetaminophen 325 MG Tab PO PRN ×5 (00:04→16:08)
[2020-01-08] MEDS: oxyCODONE 5 MG Tab PO PRN ×5 (00:05→16:08)
[2020-01-08] MEDS: Cyclobenzaprine 10 MG Tab PO SCH ×2 (08:03→14:29)
[2020-01-08] MEDS: Fluticasone Propionate Nasal Spray 16 GM Bottle NASBOTH PRN (10:04)
--- NOTE | 2020-01-08 12:06 | PCM.DCSUM1 ---
Discharge Summary - Hospital Course Brief History: 59-year-old female with history of systemic lupus erythematosus who presented with low-grade fever, headache, myalgias and chest congestion. She was admitted for observation and management of a suspected viral syndrome. Diagnosis: Stroke: No - Discharge Data Discharge Date: 01/08/20 Discharge Disposition: Home, Self-Care 01 Condition: Fair - Referral to Home Health Primary Care Physician: Washington Zendejas MD - Discharge Diagnosis/Problem(s) (1) Viral infection SNOMED Code(s): 43176431 ICD Code: B34.9 - VIRAL INFECTION, UNSPECIFIED Status: Acute Current Visit: Yes (2) Weakness SNOMED Code(s): 12274099 ICD Code: R53.1 - WEAKNESS Status: Acute Current Visit: Yes (3) Generalized body aches SNOMED Code(s): 20947309 ICD Code: R52 - PAIN, UNSPECIFIED Status: Acute Current Visit: Yes (4) Lactic acidosis SNOMED Code(s): 93046895 ICD Code: E87.2 - ACIDOSIS Status: Acute Current Visit: Yes (5) Lupus (systemic lupus erythematosus) SNOMED Code(s): 58917461 ICD Code: M32.9 - SYSTEMIC LUPUS ERYTHEMATOSUS, UNSPECIFIED Status: Chronic Priority: High Current Visit: No Qualifiers: Systemic lupus erythematosus type: other Systemic lupus erythematosus organ involvement: unspecified Qualified Code(s): M32.8 - Other forms of systemic lupus erythematosus - Patient Summary/Data Consults: Consultations 01/06/20 07:00 PT Evaluation and Treatment [CONS] Routine Please Evaluate and Treat. PT Reason for Consult: Strengthening This query below is only for informational purposes and is not editable. Hospital Course: Veronica presented to the emergency room with a multitude of symptoms including low-grade fever, headache, chest congestion, weakness and both myalgias and arthralgias. Work-up in the emergency room was fairly unremarkable other than borderline low white blood cell count and platelets. COVID19 testing was negative. Chest x-ray was unremarkable. Blood pressure was stable. Exa mination was benign. There was some concern that there may have been a tacky dysrhythmia but further review of the strips reveal that this was just motion artifact. The patient was very apprehensive about going home so she was admitted to observation. She was a little dehydrated. Her CRP and sedimentation rate were normal and on the low side of normal. This did not seem to be consistent with a flare of her lupus especially with a low inflammatory markers. She received IV fluids overnight following admission. She had a couple low-grade temperature elevations but no true fevers. Symptomatically she had persistence of her symptoms without much in the way of subjective improvement. Objectively things looked good with stable vital signs. She was never hypoxic. Her white blood cell count and platelets did drop slightly during the hospital stay. Cultures have never grown out any bacteria. Her potassium did drop but this improved with supplementation. I suspect that she has a viral syndrome. As mentioned her COVID19 testing was negative though this clinical syndrome could be compatible with that infection. She is stable and I believe she is safe for discharge. She has worked with physical therapy. She has been up and around. She did not have any fevers the night prior to discharge. I encouraged her to stay home and quarantine for the next week or so this will get her through total of 2 weeks after symptoms started just in case this is a COVID infection with a negative test. She will return if symptoms worsen. - Patient Instructions Diet: Regular Diet as Tolerated Activity: As Tolerated Notify Provider of: Fever (if >101), Increased Pain Other/Special Instructions: 1. You were in the hospital for observation and management of a variety of symptoms including headache, muscle aches, weakness, dizziness, chest congestion. I suspect that you have a viral syndrome leading to this variety of manifestations. Your white blood cell count and platelets are slightly low but otherwise your laboratory studies look good. All of your studies and vital signs have been reassuring. No specific therapy is indicated at this time but you could consider using a combination of acetaminophen and/or ibuprofen for mild aches and pains or fevers. You could consider an [id number] decongestant to help with the chest congestion. The symptoms will likely persist but should slowly start to improve over the next several days. 2. Continue your usual home medications as previously prescribed. - Discharge Plan *PRESCRIPTION DRUG MONITORING PROGRAM REVIEWED*: Not Applicable *COPY OF PRESCRIPTION DRUG MONITORING REPORT IN PATIENT MAYA: Not Applicable Home Medications: Home Meds Cyclobenzaprine [Flexeril] 10 mg PO TID 09/11/15 [History] Albuterol [Proventil HFA] 1 - 2 puff INH Q4HR PRN 11/23/17 [History] Fluticasone Propionate [Flonase] 2 spray NASBOTH DAILY PRN 11/23/17 [History] oxyCODONE HCl/Acetaminophen [Percocet 5-325 mg Tablet] 1 each PO Q4HR PRN #40 tablet 07/16/18 [Rx] Nabumetone [Relafen] 500 mg PO BID 01/05/20 [History] Oxygen Therapy Mode: Room Air Patient Handouts: Dehydration, Adult, [id number], Dizziness, [id number] Referrals: Washington Zendejas MD [Primary Care Provider] - 01/16/20 1:00 pm (Please arrive 15 minutes early to register for your appointment.) - Discharge Summary/Plan Comment DC Time >30 min.: No - Patient Data Vitals - Most Recent: Last Vital Signs Temp 37.1 C 01/08/20 11:53 Pulse 78 01/08/20 08:08 Resp 14 01/08/20 11:53 BP 106/56 L 01/08/20 11:53 Pulse Ox 98 01/08/20 11:53 Weight - Most Recent: 49.8 kg I&O - Last 24 hours: Intake & Output 01/07/20 01/08/20 01/08/20 22:59 06:59 14:59 Intake Total 493 Output Total 400 300 Balance 93 -300 Lab Results - Last 24 hrs: Laboratory Results - last 24 hr 01/07/20 01/08/20 01/08/20 Range/Units 15:25 04:10 04:10 WBC 2.8 L (4.5-11.0) K/uL RBC 3.06 L (3.30-5.50) M/uL Hgb 10.9 L (12.0-15.0) g/dL Hct 34.6 L (36.0-48.0) % MCV 113 H (80-98) fL MCH 36 H (27-31) pg MCHC 32 (32-36) % Plt Count 62 L (150-400) K/uL Sodium 141 (140-148) mmol/L Potassium 3.5 L 4.0 (3.6-5.2) mmol/L Chloride 104 (100-108) mmol/L Carbon Dioxide 30 (21-32) mmol/L Anion Gap 7.5 (5.0-14.0) mmol/L BUN 7 (7-18) mg/dL Creatinine 0.7 (0.6-1.0) mg/dL Est Cr Clr Drug Dosing 68.87 mL/min Estimated GFR (MDRD) > 60 (>60) Glucose 111 H (74-106) mg/dL Calcium 9.0 (8.5-10.1) mg/dL PATRICIA Results - Last 24 hrs: Microbiology 01/05/20 14:28 Aerobic Blood Culture - Preliminary Blood - Arm, Left NO GROWTH AFTER 2 DAYS Anaerobic Blood Culture - Preliminary NO GROWTH AFTER 2 DAYS 01/05/20 14:15 Aerobic Blood Culture - Preliminary Blood - Venous - Iv Start NO GROWTH AFTER 2 DAYS Anaerobic Blood Culture - Preliminary NO GROWTH AFTER 2 DAYS Med Orders - Current: Current Medications Acetaminophen (Tylenol) 650 mg PO Q4H PRN PRN Reason: Pain (Mild 1-3)/fever Last Admin: 01/08/20 08:14 Dose: 650 mg Documented by: Albuterol (Proventil Neb Soln) 2.5 mg NEB Q4H PRN PRN Reason: Shortness Of Breath/wheezing Last Admin: 01/06/20 16:38 Dose: 2.5 mg Documented by: Cyclobenzaprine HCl (Flexeril) 10 mg PO TID [facility] Last Admin: 01/08/20 08:03 Dose: 10 mg Documented by: Fluticasone Propionate (Flonase) 0 gm NASBOTH DAILY PRN PRN Reason: ALLERGIES Last Admin: 01/08/20 10:04 Dose: 2 spray Documented by: Lorazepam (Ativan) 0.5 mg IVPUSH Q4H PRN PRN Reason: Nausea/Vomiting Magnesium Hydroxide (Milk Of Magnesia) 30 ml PO Q12H PRN PRN Reason: Constipation Melatonin (Melatonin) 9 mg PO BEDTIME PRN PRN Reason: Sleep Last Admin: 01/07/20 20:06 Dose: 9 mg Documented by: Nabumetone (Relafen) 500 mg PO BID [facility] Last Admin: 01/08/20 08:03 Dose: 500 mg Documented by: Ondansetron HCl (Zofran) 4 mg IV Q6H PRN PRN Reason: Nausea/Vomiting Ondansetron HCl (Zofran Odt) 4 mg PO Q6H PRN PRN Reason: Nausea able to take PO Oxycodone HCl (Oxycodone) 5 - 10 mg PO Q4H PRN PRN Reason: Pain Last Admin: 01/08/20 08:14 Dose: 10 mg Documented by: Senna/Docusate Sodium (Senna Plus) 1 tab PO BID PRN PRN Reason: Constipation Discontinued Medications Sodium Chloride (Normal Saline) 1,000 mls @ 999 mls/hr IV .BOLUS STA Stop: 01/05/20 15:03 Last Admin: 01/05/20 14:22 Dose: 999 mls/hr Documented by: Sodium Chloride (Normal Saline) 1,000 mls @ 999 mls/hr IV ASDIRECTED [facility] Stop: 01/05/20 18:16 Sodium Chloride (Normal Saline) 1,000 mls @ 100 mls/hr IV ASDIRECTED [facility] Last Admin: 01/06/20 03:03 Dose: 100 mls/hr Documented by: Sodium Chloride (Normal Saline) 1,000 mls @ 50 mls/hr IV ASDIRECTED [facility] Last Admin: 01/07/20 08:02 Dose: 50 mls/hr Documented by: Potassium Chloride 20 meq/ (Premix) 100 mls @ 50 mls/hr IV ONETIME ONE Stop: 01/07/20 08:07 Last Admin: 01/07/20 06:24 Dose: 50 mls/hr Documented by: Lidocaine HCl (Xylocaine-Mpf 1%) 5 ml INJECT ONETIME ONE Stop: 01/07/20 05:58 Last Admin: 01/07/20 06:24 Dose: 5 ml Documented by: Morphine Sulfate (Morphine) 2 mg IVPUSH ONETIME ONE Stop: 01/05/20 16:14 Last Admin: 01/05/20 16:45 Dose: 2 mg Documented by: Potassium Chloride (Klor-Con M20) 40 meq PO ONETIME ONE Stop: 01/07/20 05:57 Last Admin: 01/07/20 06:22 Dose: 40 meq Documented by: Potassium Chloride (Potassium Chloride Solution) 20 meq PO ONETIME ONE Stop: 01/07/20 05:57 Last Admin: 01/07/20 07:04 Dose: Not Given Documented by: Potassium Chloride (Klor-Con M20) 40 meq PO ONETIME ONE Stop: 01/07/20 15:53 Last Admin: 01/07/20 16:08 Dose: 40 meq Documented by:
[2020-01-08 15:10] VITALS: BP 126/78; PULSE 96
== END 2020-01-08 17:41 | disposition home or self-care (01) ==
LOC: JP.ED 11:40 → JP.MS 17:09
PROVIDERS: ADMIT Internal Medicine; ATTEND Internal Medicine
DX: R50.9 Fever, unspecified (principal); B34.9 Viral infection, unspecified; R53.1 Weakness; R09.89 Other specified symptoms and signs involving the circulatory and respiratory systems; R52 Pain, unspecified; E87.2 Acidosis; E87.6 Hypokalemia; M32.9 Systemic lupus erythematosus, unspecified; Z20.828 Contact with and (suspected) exposure to other viral communicable diseases; Z79.899 Other long term (current) drug therapy; Z88.2 Allergy status to sulfonamides; Z88.8 Allergy status to other drugs, medicaments and biological substances; Z88.0 Allergy status to penicillin; Z91.040 Latex allergy status; Z88.1 Allergy status to other antibiotic agents
CPT/HCPCS: 36415; 71046; 80048; 80053; 81001; 83605; 83735; 84132; 84484; 85025; 85027; 85651; 86140; 87040; 93005; 94640; 96361; 96374; 97116; 97162; 97530; 97535; 99285; A9270; G0378; J2001; J2270; J3480; J7030; U0002; 93010

== ENCOUNTER 2020-02-03 12:46 | Emergency (ER) | payer MEDICARE ==
[2020-02-03 13:19] VITALS: BP 145/87; PULSE 99
--- NOTE | 2020-02-03 14:23 | EDM.PDOC ---
ED HPI GENERAL MEDICAL PROBLEM - General Chief Complaint: General Stated Complaint: WEAKNESS,DIZZY Time Seen by Provider: 02/03/20 14:14 Source of Information: Reports: Patient History Limitations: Reports: No Limitations - History of Present Illness INITIAL COMMENTS - FREE TEXT/NARRATIVE: pt was hospitalized the end of Dec and she was weak and tired. She had a low k at that time. She did test neg for Covid but there was some question whether she had it or not. Onset: Gradual, Other ( pt has been very fatiqued and she is sleeping alot. She is not running a fever. She has felt like she has never recovered. ) Duration: Hour(s): Location: Reports: Generalized Associated Symptoms: Reports: Loss of Appetite, Malaise, Weakness - Related Data Allergies Allergy/AdvReac Type Severity Reaction Status Date / Time hydroxychloroquine Allergy Intermediate Hives Verified 02/03/20 13:20 [From Plaquenil] latex Allergy Intermediate Rash Verified 02/03/20 13:20 Sulfa (Sulfonamide Allergy Mild Cannot Verified 02/03/20 13:20 Antibiotics) Remember azithromycin [From Zithromax] AdvReac Intermediate Diarrhea Verified 02/03/20 13:20 erythromycin base AdvReac Intermediate Abdominal Verified 02/03/20 13:20 [Erythromycin Base] Pain Penicillins AdvReac Intermediate Abdominal Verified 02/03/20 13:20 Pain amoxicillin AdvReac Mild Abdominal Verified 02/03/20 13:20 Pain Home Meds: Home Meds Cyclobenzaprine [Flexeril] 10 mg PO TID 09/11/15 [History] Albuterol [Proventil HFA] 1 - 2 puff INH Q4HR PRN 11/23/17 [History] Fluticasone Propionate [Flonase] 2 spray NASBOTH DAILY 11/23/17 [History] Nabumetone [Relafen] 500 mg PO BID 01/05/20 [History] oxyCODONE HCl/Acetaminophen [Percocet 5-325 mg Tablet] 2 each PO Q4HR PRN 02/03/20 [History] Past Medical History HEENT History: Reports: None Cardiovascular History: Reports: None Respiratory History: Reports: Asthma, Bronchitis, Recurrent Gastrointestinal History: Reports: Hepatitis, Other (See Below) Other Gastrointestinal History: Reports lupus hepatitis 2015 Genitourinary History: Reports: None [employer] History: Reports: Musculoskeletal History: Reports: Back Pain, Chronic, Osteoporosis, SLE Other Musculoskeletal History: R hip pain right shoulder pain, R medial knee pain Neurological History: Reports: Brain Injury, Other (See Below) Other Neuro History: 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 Psychiatric History: Reports: None Endocrine/Metabolic History: Reports: Osteoporosis, Other (See Below) Other Endocrine/Metabolic History: LUPUS Hematologic History: Reports: Blood Transfusion(s) Immunologic History: Reports: SLE, Other (See Below) Other Immunologic History: SLE (2006) Oncologic (Cancer) History: Reports: None Dermatologic History: Reports: None - Infectious Disease History Infectious Disease History: Reports: MRSA Other Infectious Disease History: Lupus induced hepatitis, per patient - Past Surgical History Head Surgeries/Procedures: Reports: None HEENT Surgical History: Reports: None Respiratory Surgical History: Reports: None GI Surgical History: Reports: Cholecystectomy Endocrine Surgical History: Reports: None Neurological Surgical History: Reports: None Musculoskeletal Surgical History: Reports: Hip Replacement, Shoulder Replacement, Other (See Below) Other Musculoskeletal Surgeries/Procedures:: R NANCY 05/20/2018 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 Social & Family History - Family History Family Medical History: Noncontributory Cardiac: Reports: CAD, Heart Failure - Tobacco Use Tobacco Use Status *Q: Never Tobacco User - Caffeine Use Caffeine Use: Reports: None - Recreational Drug Use Recreational Drug Use: No ED ROS GENERAL - Review of Systems Review Of Systems: See Below Constitutional: Reports: Chills, Malaise, Decreased Appetite HEENT: Reports: No Symptoms Respiratory: Reports: No Symptoms Cardiovascular: Reports: No Symptoms Endocrine: Reports: No Symptoms GI/Abdominal: Reports: No Symptoms Musculoskeletal: Reports: No Symptoms Skin: Reports: No Symptoms Neurological: Reports: No Symptoms ED EXAM, GENERAL - Physical Exam Exam: See Below Free Text/Narrative:: pt arrived feeling very tired and sleeping alot. She was found to have a bs in the 40s. She had a low co2. She was dehydtrated. She admits to eating very little and not drinking fluids well. Exam Limited By: No Limitations General Appearance: Alert, Anxious, Other ( she has had an increase in her pain and feels like she could have a lupus flare. ) Ears: Normal TMs Nose: Normal Inspection Throat/Mouth: Normal Inspection Head: Atraumatic Neck: Normal Inspection Respiratory/Chest: No Respiratory Distress Cardiovascular: Regular Rate, Rhythm, Tachycardia, Other (pt does chronicly have a fast heart rate. ) GI/Abdominal: Soft, Non-Tender (Female) Exam: Deferred Rectal (Female) Exam: Deferred Back Exam: Normal Inspection Extremities: Normal Inspection Neurological: Oriented Psychiatric: Normal Affect Course - Vital Signs Last Recorded V/S: Last Vital Signs Temp 35.6 C L 02/03/20 13:17 Pulse 99 02/03/20 13:17 Resp 16 02/03/20 13:17 BP 145/87 H 02/03/20 13:17 Pulse Ox 100 02/03/20 13:17 - Orders/Labs/Meds Labs: Laboratory Tests 02/03/20 02/03/20 02/03/20 Range/Units 14:52 14:52 15:45 WBC 8.3 (4.5-11.0) K/uL RBC 4.05 (3.30-5.50) M/uL Hgb 15.1 H D (12.0-15.0) g/dL Hct 43.5 (36.0-48.0) % MCV 107 H (80-98) fL MCH 37 H (27-31) pg MCHC 35 (32-36) % Plt Count 121 L (150-400) K/uL Neut % (Auto) 77 H (36-66) % Lymph % (Auto) 14 L (24-44) % [place] % (Auto) 8 H (2-6) % Eos % (Auto) 0 L (2-4) % Baso % (Auto) 0 (0-1) % Puncture Site Lt radial ABG pH 7.349 L (7.350-7.450) ABG pCO2 25.3 L (35.0-42.0) mmHg ABG pO2 105.0 H (75.0-100.0) mmHg ABG HCO3 13.6 L (22.0-26.0) mmol/L ABG Total CO2 12.1 L (21.0-25.0) mmol/L ABG O2 Saturation 97.4 (95.0-98.0) % ABG O2 Content 18.6 (15.0-23.0) %vol ABG Base Excess -10.2 mm/L ABG Hemoglobin 13.9 (12.0-16.0) g/dL ABG Oxyhemoglobin 95.0 % ABG Carboxyhemoglobin 1.3 (0.0-1.6) % ABG Methemoglobin 1.2 % Rodolfo Test Passed O2 Delivery Device Room air Sodium 132 L (140-148) mmol/L Potassium 4.2 (3.6-5.2) mmol/L Chloride 93 L (100-108) mmol/L Carbon Dioxide 17 L (21-32) mmol/L Anion Gap 26.2 H (5.0-14.0) mmol/L BUN 6 L (7-18) mg/dL Creatinine 0.6 (0.6-1.0) mg/dL Est Cr Clr Drug Dosing 81.53 mL/min Estimated GFR (MDRD) > 60 (>60) Glucose 44 L* (74-106) mg/dL POC Glucose (74-106) MG/DL Calcium 9.0 (8.5-10.1) mg/dL Total Bilirubin 0.8 (0.2-1.0) mg/dL AST 66 H (15-37) U/L ALT 34 (12-78) U/L Alkaline Phosphatase 86 (46-116) U/L Total Protein 7.9 (6.4-8.2) g/dL Albumin 4.1 (3.4-5.0) g/dL Globulin 3.8 H (2.3-3.5) g/dL Albumin/Globulin Ratio 1.1 L (1.2-2.2) Urine Color (YELLOW) Urine Appearance (CLEAR) Urine pH (5.0-8.0) Ur Specific [place] (1.008-1.030) Urine Protein (NEGATIVE) mg/dL Urine Glucose (UA) (NEGATIVE) mg/dL Urine Ketones (NEGATIVE) mg/dL Urine Occult Blood (NEGATIVE) Urine Nitrite (NEGATIVE) Urine Bilirubin (NEGATIVE) Urine Urobilinogen (0.2-1.0) EU/dL Ur Leukocyte Esterase (NEGATIVE) Urine RBC (0-5) Urine WBC (0-5) Ur Epithelial Cells Urine Bacteria 02/03/20 02/03/20 02/03/20 Range/Units 15:51 15:57 17:43 WBC (4.5-11.0) K/uL RBC (3.30-5.50) M/uL Hgb (12.0-15.0) g/dL Hct (36.0-48.0) % MCV (80-98) fL MCH (27-31) pg MCHC (32-36) % Plt Count (150-400) K/uL Neut % (Auto) (36-66) % Lymph % (Auto) (24-44) % [place] % (Auto) (2-6) % Eos % (Auto) (2-4) % Baso % (Auto) (0-1) % Puncture Site ABG pH (7.350-7.450) ABG pCO2 (35.0-42.0) mmHg ABG pO2 (75.0-100.0) mmHg ABG HCO3 (22.0-26.0) mmol/L ABG Total CO2 (21.0-25.0) mmol/L ABG O2 Saturation (95.0-98.0) % ABG O2 Content (15.0-23.0) %vol ABG Base Excess mm/L ABG Hemoglobin (12.0-16.0) g/dL ABG Oxyhemoglobin % ABG Carboxyhemoglobin (0.0-1.6) % ABG Methemoglobin % Rodolfo Test O2 Delivery Device Sodium (140-148) mmol/L Potassium (3.6-5.2) mmol/L Chloride (100-108) mmol/L Carbon Dioxide (21-32) mmol/L Anion Gap (5.0-14.0) mmol/L BUN (7-18) mg/dL Creatinine (0.6-1.0) mg/dL Est Cr Clr Drug Dosing mL/min Estimated GFR (MDRD) (>60) Glucose (74-106) mg/dL POC Glucose 48 L* 241 H (74-106) MG/DL Calcium (8.5-10.1) mg/dL Total Bilirubin (0.2-1.0) mg/dL AST (15-37) U/L ALT (12-78) U/L Alkaline Phosphatase (46-116) U/L Total Protein (6.4-8.2) g/dL Albumin (3.4-5.0) g/dL Globulin (2.3-3.5) g/dL Albumin/Globulin Ratio (1.2-2.2) Urine Color Yellow (YELLOW) Urine Appearance Clear (CLEAR) Urine pH 5.5 (5.0-8.0) Ur Specific [place] 1.010 (1.008-1.030) Urine Protein Negative (NEGATIVE) mg/dL Urine Glucose (UA) Negative (NEGATIVE) mg/dL Urine Ketones 40 H (NEGATIVE) mg/dL Urine Occult Blood Trace-intact H (NEGATIVE) Urine Nitrite Negative (NEGATIVE) Urine Bilirubin Negative (NEGATIVE) Urine Urobilinogen 0.2 (0.2-1.0) EU/dL Ur Leukocyte Esterase Negative (NEGATIVE) Urine RBC Not seen (0-5) Urine WBC Not seen (0-5) Ur Epithelial Cells Rare Urine Bacteria Not seen Meds: Medications Discontinued Medications Generic Name Dose Route Start Last Admin Trade Name Freq PRN Reason Stop Dose Admin Dextrose/Sodium Chloride 1,000 mls @ 500 mls/hr 02/03/20 16:30 02/03/20 16:41 Dextrose 5%-Normal Saline IV 500 mls/hr ASDIRECTED ADELSO Administration Sodium Chloride 1,000 mls @ 999 mls/hr 02/03/20 17:45 02/03/20 17:46 Normal Saline IV 999 mls/hr ASDIRECTED ADELSO Administration Methylprednisolone Sodium Succinate 125 mg 02/03/20 17:11 02/03/20 17:46 Solu-Medrol IVPUSH 02/03/20 17:12 125 mg ONETIME ONE Administration Oxycodone/Acetaminophen 1 tab 02/03/20 15:58 02/03/20 16:04 Percocet 325-5 Mg PO 02/03/20 15:59 1 tab ONETIME ONE Administration - Re-Assessments/Exams Free Text/Narrative Re-Assessment/Exam: 02/03/20 17:14 pt is running low sugars, she is not eating and she has a poor fluid intake. She is dehydrated. 02/03/20 18:00 pt had a bs in the 40s. She would not eat a meal so she was given 500cc of d5 and her bs is 241 now. She was given solumedrol 125 iv and was treated like a lupus flare. She will go home on predisone. Departure - Departure Time of Disposition: 17:45 Disposition: Home, Self-Care 01 Condition: Fair Clinical Impression: Dehydration, Hypoglycemic disorder Lupus (systemic lupus erythematosus) Qualifiers: Systemic lupus erythematosus type: other Systemic lupus erythematosus organ involvement: unspecified Qualified Code(s): M32.8 - Other forms of systemic lupus erythematosus - Discharge Information Instructions: Hypoglycemia, [id number] Referrals: Washington Zendejas MD [Primary Care Provider] - Forms: ED Department Discharge Care Plan Goals: try to use dietary supplements if not able to eat, predisone --start tomorrow 30mg for 3 days, 20 mg for 2 days, then 10 mg for 5 days. push fluids. continue other meds. diabetic teaching for hypoglycemia. pt should be able to check her sugars and be sure they are staying up. Sepsis Event Note (ED) - Evaluation Sepsis Screening Result: No Definite Risk
[2020-02-03] MEDS ORDERED: Acetaminophen/oxyCODONE 325-5 MG Tab PO ONE (15:58)
[2020-02-03] MEDS ORDERED: Dextrose 5%-0.9% NaCl 1,000 ML IV SCH (16:30)
[2020-02-03] MEDS ORDERED: methylPREDNISolone Sodium Succinate 125 MG/2 ML SDV IVPUSH ONE (17:11)
[2020-02-03] MEDS ORDERED: Sodium Chloride 0.9% 1,000 ML IV SCH (17:45)
== END 2020-02-03 19:30 | disposition home or self-care (01) ==
LOC: JP.ED 12:46
DX: E86.0 Dehydration (principal); M32.8 Other forms of systemic lupus erythematosus; J45.909 Unspecified asthma, uncomplicated; E16.2 Hypoglycemia, unspecified; Z88.1 Allergy status to other antibiotic agents; Z79.899 Other long term (current) drug therapy; Z88.8 Allergy status to other drugs, medicaments and biological substances; Z91.040 Latex allergy status; Z88.2 Allergy status to sulfonamides; Z88.0 Allergy status to penicillin
CPT/HCPCS: 36415; 36600; 80053; 81001; 82803; 82962; 85025; 96374; 99284; A9270; J2930; J7030

== ENCOUNTER 2021-02-21 17:19 | Emergency (ER) | payer MEDICARE ==
[2021-02-21 18:16] VITALS: BP 130/69; PULSE 94
[2021-02-21] MEDS ORDERED: oxyCODONE 5 MG Tab PO ONE (18:57)
[2021-02-21 19:18] LABS: CORONAVIRUS COVID-19 NAA NEGATIVE (NEGATIVE)
--- NOTE | 2021-02-21 19:47 | EDM.PDOC ---
ED HPI GENERAL MEDICAL PROBLEM - General Chief Complaint: General Stated Complaint: JOINT PAIN/FEVERISH Time Seen by Provider: 02/21/21 18:44 Source of Information: Reports: Patient History Limitations: Reports: No Limitations - History of Present Illness INITIAL COMMENTS - FREE TEXT/NARRATIVE: Veronica is a 60-year-old female presenting to the ED for evaluation of inflammation and pain in multiple joints including bilateral hands, wrists, knees and ankles. The patient's symptoms started several days ago and have continued to worsen. She is not sure if it is due to her osteoarthritis or her lupus. She has had flares like this in the past and has been successfully treated with prednisone with the most recent being in November of this year. She has not noticed any rash. She denies any other symptoms other than joint swelling and pain. She has been taking [id number] arthritis relief medicine without improvement. She is on chronic oxycodone for pain and has run out of this medication today. I did explain to her that she will need to contact her primary care provider to get refills of this as we do not refill chronic pain medication out of the ER, but I did offer to give her 1 dose here. I did review her [facility] chart. Generalized Pain Score (Numeric/FACES): 6 - Related Data Allergies Allergy/AdvReac Type Severity Reaction Status Date / Time hydroxychloroquine Allergy Intermediate Hives Verified 02/21/21 18:18 [From Plaquenil] latex Allergy Intermediate Rash Verified 02/21/21 18:18 Sulfa (Sulfonamide Allergy Mild Cannot Verified 02/21/21 18:18 Antibiotics) Remember azithromycin [From Zithromax] AdvReac Intermediate Diarrhea Verified 02/21/21 18:18 erythromycin base AdvReac Intermediate Abdominal Verified 02/21/21 18:18 [Erythromycin Base] Pain Penicillins AdvReac Intermediate Abdominal Verified 02/21/21 18:18 Pain amoxicillin AdvReac Mild Abdominal Verified 02/21/21 18:18 Pain Home Meds: Home Meds Cyclobenzaprine [Flexeril] 10 mg PO TID PRN 09/11/15 [History] Albuterol [Proventil HFA] 1 - 2 puff INH Q4HR PRN 11/23/17 [History] Fluticasone Propionate [Flonase] 2 spray NASBOTH DAILY 11/23/17 [History] Nabumetone [Relafen] 500 mg PO BID 01/05/20 [History] oxyCODONE HCl/Acetaminophen [Percocet 5-325 mg Tablet] 2 each PO Q4HR PRN 02/03/20 [History] Past Medical History HEENT History: Reports: None Cardiovascular History: Reports: None Respiratory History: Reports: Asthma, Bronchitis, Recurrent Gastrointestinal History: Reports: Other (See Below) Other Gastrointestinal History: Reports lupus hepatitis 2014 Genitourinary History: Reports: None [employer] History: Reports: Musculoskeletal History: Reports: Back Pain, Chronic, Osteoporosis, SLE Other Musculoskeletal History: R hip pain right shoulder pain, R medial knee pain Neurological History: Reports: Brain Injury, Other (See Below) Other Neuro History: 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 Psychiatric History: Reports: None Endocrine/Metabolic History: Reports: Osteoporosis, Other (See Below) Other Endocrine/Metabolic History: LUPUS Hematologic History: Reports: Blood Transfusion(s) Immunologic History: Reports: SLE, Other (See Below) Other Immunologic History: SLE (2006) Oncologic (Cancer) History: Reports: None Dermatologic History: Reports: None - Infectious Disease History Infectious Disease History: Reports: MRSA Other Infectious Disease History: Lupus induced hepatitis, per patient - Past Surgical History Head Surgeries/Procedures: Reports: None Respiratory Surgical History: Reports: None GI Surgical History: Reports: Cholecystectomy Endocrine Surgical History: Reports: None Neurological Surgical History: Reports: None Musculoskeletal Surgical History: Reports: Hip Replacement, Shoulder Replacement, Other (See Below) Other Musculoskeletal Surgeries/Procedures:: R NANCY 05/20/2018 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 Dermatological Surgical History: Reports: None Social & Family History - Family History Family Medical History: No Pertinent Family History Cardiac: Reports: CAD, Heart Failure - Tobacco Use Tobacco Use Status *Q: Never Tobacco User Second Hand Smoke Exposure: No - Caffeine Use Caffeine Use: Reports: None - Recreational Drug Use Recreational Drug Use: No ED ROS GENERAL - Review of Systems Review Of Systems: See Below Constitutional: Reports: No Symptoms. Denies: Fever, Chills HEENT: Reports: No Symptoms Respiratory: Reports: No Symptoms Cardiovascular: Reports: No Symptoms Endocrine: Reports: No Symptoms GI/Abdominal: Reports: No Symptoms : Reports: No Symptoms Musculoskeletal: Reports: Hand Pain (Bilateral), Foot Pain (Bilateral), Joint Pain (Bilateral wrists, hands, knees and ankles) Skin: Reports: No Symptoms. Denies: Rash Neurological: Reports: No Symptoms Psychiatric: Reports: No Symptoms Hematologic/Lymphatic: Reports: No Symptoms Immunologic: Reports: No Symptoms ED EXAM, GENERAL - Physical Exam Exam: See Below Exam Limited By: No Limitations General Appearance: Alert, Anxious, Mild Distress Eye Exam: Bilateral Eye: EOMI, PERRL Throat/Mouth: Normal Inspection, Normal Oropharynx, Normal Voice, No Airway Compromise Head: Atraumatic, Normocephalic Neck: Normal Inspection, Supple, Non-Tender, Full Range of Motion Respiratory/Chest: No Respiratory Distress, Lungs Clear, Normal Breath Sounds, No Accessory Muscle Use. No: Crackles, Rales, Rhonchi, Wheezing Cardiovascular: Normal Peripheral Pulses, Regular Rate, Rhythm, No Murmur Peripheral Pulses: 2+: Radial (L), Radial (R) GI/Abdominal: Normal Bowel Sounds, Soft, Non-Tender Back Exam: Full Range of Motion Extremities: Normal Inspection, Normal Range of Motion, Other (Pain with movement of the hands, wrists, knees and ankles). No: Joint Swelling, Increased Warmth Neurological: Alert, Oriented, Normal Cognition, No Motor/Sensory Deficits Psychiatric: Normal Affect, Anxious Skin Exam: Warm, Dry, Intact, Normal Color, No Rash Course - Vital Signs Last Recorded V/S: Last Vital Signs Temp 36.5 C 02/21/21 18:14 Pulse 94 02/21/21 18:14 Resp 16 02/21/21 18:14 BP 130/69 02/21/21 18:14 Pulse Ox 96 02/21/21 18:14 - Orders/Labs/Meds Orders: Active Orders 24 hr Category Date Time Status Isolation [COMM] Stat Oth 02/21/21 18:25 Ordered Labs: Laboratory Tests 02/21/21 02/21/21 02/21/21 Range/Units 18:31 18:39 18:39 WBC 8.4 (4.5-11.0) K/uL RBC 3.83 (3.30-5.50) M/uL Hgb 14.1 (12.0-15.0) g/dL Hct 39.4 (36.0-48.0) % MCV 103 H (80-98) fL MCH 37 H (27-31) pg MCHC 36 (32-36) % Plt Count 189 (150-400) K/uL Neut % (Auto) 73.8 H (36-66) % Lymph % (Auto) 22.8 L (24-44) % [place] % (Auto) 3.0 (2-6) % Eos % (Auto) 0.0 L (2-4) % Baso % (Auto) 0.4 (0-1) % ESR (0-25) mm/hr Sodium 130 L (140-148) mmol/L Potassium 3.5 L (3.6-5.2) mmol/L Chloride 90 L (100-108) mmol/L Carbon Dioxide 18 L (21-32) mmol/L Anion Gap 25.5 H (5.0-14.0) mmol/L BUN 6 L (7-18) mg/dL Creatinine 0.5 L (0.6-1.0) mg/dL Est Cr Clr Drug Dosing 103.28 mL/min Estimated GFR (MDRD) > 60 (>60) Glucose 49 L* (74-106) mg/dL POC Glucose (74-106) mg/dL Calcium 8.9 (8.5-10.1) mg/dL Total Bilirubin 0.9 (0.2-1.0) mg/dL AST 58 H (15-37) U/L ALT 42 (12-78) U/L Alkaline Phosphatase 86 (46-116) U/L C-Reactive Protein < 0.05 (0.0-0.3) mg/dL Total Protein 7.3 (6.4-8.2) g/dL Albumin 4.1 (3.4-5.0) g/dL Globulin 3.2 (2.3-3.5) g/dL Albumin/Globulin Ratio 1.3 (1.2-2.2) Influenza Type A RNA Negative (NEGATIVE) RSV RNA (INAAT) Negative (NEGATIVE) Influenza Type B RNA Negative (NEGATIVE) SARS-CoV-2 RNA (AMIRA) Negative (NEGATIVE) 02/21/21 02/21/21 Range/Units 18:57 19:59 WBC (4.5-11.0) K/uL RBC (3.30-5.50) M/uL Hgb (12.0-15.0) g/dL Hct (36.0-48.0) % MCV (80-98) fL MCH (27-31) pg MCHC (32-36) % Plt Count (150-400) K/uL Neut % (Auto) (36-66) % Lymph % (Auto) (24-44) % [place] % (Auto) (2-6) % Eos % (Auto) (2-4) % Baso % (Auto) (0-1) % ESR 9 (0-25) mm/hr Sodium (140-148) mmol/L Potassium (3.6-5.2) mmol/L Chloride (100-108) mmol/L Carbon Dioxide (21-32) mmol/L Anion Gap (5.0-14.0) mmol/L BUN (7-18) mg/dL Creatinine (0.6-1.0) mg/dL Est Cr Clr Drug Dosing mL/min Estimated GFR (MDRD) (>60) Glucose (74-106) mg/dL POC Glucose 107 H (74-106) mg/dL Calcium (8.5-10.1) mg/dL Total Bilirubin (0.2-1.0) mg/dL AST (15-37) U/L ALT (12-78) U/L Alkaline Phosphatase (46-116) U/L C-Reactive Protein (0.0-0.3) mg/dL Total Protein (6.4-8.2) g/dL Albumin (3.4-5.0) g/dL Globulin (2.3-3.5) g/dL Albumin/Globulin Ratio (1.2-2.2) Influenza Type A RNA (NEGATIVE) RSV RNA (INAAT) (NEGATIVE) Influenza Type B RNA (NEGATIVE) SARS-CoV-2 RNA (AMIRA) (NEGATIVE) Meds: Medications Discontinued Medications Generic Name Dose Route Start Last Admin Trade Name Freq PRN Reason Stop Dose Admin Oxycodone HCl 5 mg 02/21/21 18:57 02/21/21 19:06 Oxycodone 5 Mg Tab PO 02/21/21 18:58 5 mg ONETIME ONE Administration - Re-Assessments/Exams Free Text/Narrative Re-Assessment/Exam: 02/21/21 19:53 notified by lab that the patient had a blood glucose of 49. She has been given a total now 5 apple juices and a turkey sandwich. We will get a follow-up [id number] glucose as she still complained of being symptomatic. Labs were obtained showing a normal CBC and comprehensive metabolic panel with the exception of the glucose of 49. Her C-reactive protein is normal at less than 0.05 and her erythrocyte sedimentation rate is normal at 9. She has negative for Covid, RSV, and influenza. Her symptoms are consistent with her prior flare of lupus which Dr. Zendejas treated with prednisone. Could either be a flare of her lupus causing polyarthritis or it could be osteoarthritis flare due to the weather change. Either way I think a prednisone taper would be beneficial. Departure - Departure Time of Disposition: 19:41 Disposition: Home, Self-Care 01 Clinical Impression: Polyarthritis Lupus (systemic lupus erythematosus) Qualifiers: Systemic lupus erythematosus type: unspecified Systemic lupus erythematosus organ involvement: unspecified Qualified Code(s): M32.9 - Systemic lupus erythematosus, unspecified - Discharge Information Instructions: Systemic Lupus Erythematosus, Adult Referrals: Washington Zendejas MD [Primary Care Provider] - Forms: ED Department Discharge Care Plan Goals: Your work-up today shows that your inflammation markers are still within normal range but your blood sugar was significantly low. I do not believe that this is the cause for your multiple joints being inflamed. I think most likely this is either a flare of polyarthritis due to your lupus or may be a little bit of osteoarthritis flaring up with the weather. Regardless, we will treat at the same way with prednisone taper which I am sending out to the [facility]. Is a 12-day taper which should be effective in reducing your inflammation. Your Covid, RSV, and influenza tests were negative. Your CBC and basic metabolic profile were also negative. Your liver function and kidney function look to be normal at this time. You will need to follow-up with Dr. Zendejas concerning your oxycodone as he is the only one that can refill this on your contract. Sepsis Event Note (ED) - Evaluation Sepsis Screening Result: No Definite Risk - Focused Exam Vital Signs: Vital Signs Temp Pulse Resp BP Pulse Ox 02/21/21 18:14 36.5 C 94 16 130/69 96 - Problem List & Annotations (1) Polyarthritis SNOMED Code(s): 46894093 Code(s): M13.0 - POLYARTHRITIS, UNSPECIFIED Status: Acute Priority: Medium Current Visit: Yes - Problem List Review Problem List Initiated/Reviewed/Updated: Yes - My Orders Last 24 Hours: My Active Orders 02/21/21 18:25 Isolation [COMM] Stat - Assessment/Plan Last 24 Hours: My Active Orders 02/21/21 18:25 Isolation [COMM] Stat
[2021-02-21] MEDS ORDERED: Ketorolac 10 MG Tab PO ONE (20:34)
== END 2021-02-21 21:24 | disposition home or self-care (01) ==
LOC: JP.ED 17:19
DX: M13.0 Polyarthritis, unspecified (principal); M32.9 Systemic lupus erythematosus, unspecified; Z91.040 Latex allergy status; Z79.899 Other long term (current) drug therapy; Z88.2 Allergy status to sulfonamides; Z88.0 Allergy status to penicillin; Z88.1 Allergy status to other antibiotic agents; Z20.822 Contact with and (suspected) exposure to COVID-19
CPT/HCPCS: 0241U; 36415; 80053; 82947; 85025; 85651; 86140; 99283; A9270

== ENCOUNTER 2021-09-03 19:40 | Emergency (ER) | payer MEDICARE ==
[2021-09-03] MEDS ORDERED: Ketorolac 30 MG/ML SDV IVPUSH ONE (20:11)
[2021-09-03] MEDS ORDERED: Ondansetron 4 MG/2 ML SDV IVPUSH ONE (20:11)
[2021-09-03] MEDS ORDERED: Lactated Ringers 1,000 ML IV SCH (20:15)
[2021-09-03] MEDS ORDERED: Sodium Chloride 0.9% 50 ML IV SCH (20:30)
[2021-09-03] MEDS ORDERED: Iopamidol 612 MG/ML 100 ML Bottle IV PRN (20:30)
[2021-09-03] MEDS ORDERED: Potassium Chloride 20 MEQ in Premix Bag 1 BAG IV ONE (20:32)
[2021-09-03 20:46] LABS: CORONAVIRUS COVID-19 NAA NEGATIVE (NEGATIVE)
[2021-09-03] MEDS ORDERED: Lidocaine 1% 5 ML VIAL INJECT ONE (20:56)
[2021-09-03] MEDS ORDERED: metroNIDAZOLE/Normal Saline 500 MG in Premix Bag 1 BAG IV SCH (21:00)
[2021-09-03] MEDS ORDERED: Cefepime 1 GM in Sodium Chloride 0.9% 50 ML IV SCH (21:00)
[2021-09-03] MEDS ORDERED: fentaNYL 100 MCG/2 ML SDV IVPUSH ONE (21:09)
[2021-09-03] MEDS ORDERED: Alum Hydrox/Mag Hydrox/Simeth 15 ML, Lidocaine 2% 15 ML PO ONE ×2 (21:09)
[2021-09-03] MEDS ORDERED: metroNIDAZOLE/Normal Saline 0 ML ONE (21:14)
[2021-09-03 22:56] VITALS: BP 133/72; PULSE 83
== END 2021-09-03 23:06 ==
LOC: JP.ED 19:40
DX: R19.7 Diarrhea, unspecified (principal); J45.909 Unspecified asthma, uncomplicated; Z90.49 Acquired absence of other specified parts of digestive tract; Z79.899 Other long term (current) drug therapy; Z88.0 Allergy status to penicillin; Z88.2 Allergy status to sulfonamides; Z88.1 Allergy status to other antibiotic agents; Z91.040 Latex allergy status; Z88.8 Allergy status to other drugs, medicaments and biological substances; Z20.822 Contact with and (suspected) exposure to COVID-19
CPT/HCPCS: 0241U; 36415; 74177; 80053; 80307; 81001; 83605; 84145; 85025; 86140; 87040; 96361; 96365; 96366; 96368; 96375; 99284; 99285-25; A9270-GY; J0692; J1885; J2405; J3010; J3480; J3490; J7120; Q9967

== ENCOUNTER 2021-09-13 23:12 | Observation (INO) | payer MEDICARE, MEDICAID ==
[2021-09-14] MEDS ORDERED: Acetaminophen/oxyCODONE 325-5 MG Tab PO SCH (03:15)
[2021-09-14 03:20] LABS: CORONAVIRUS COVID-19 NAA NEGATIVE (NEGATIVE)
[2021-09-14] MEDS: Acetaminophen/oxyCODONE 325-5 MG Tab PO PRN ×5 (04:03→20:46)
[2021-09-14] MEDS ORDERED: Cyclobenzaprine 10 MG Tab PO PRN (09:53)
[2021-09-14] MEDS ORDERED: Ondansetron 4 MG Tab.DIS PO PRN (09:55)
[2021-09-14] MEDS ORDERED: Polyethylene Glycol 3350 Powder 17 GM Packet PO PRN (09:56)
[2021-09-14] MEDS ORDERED: Magnesium Hydroxide 400 MG/5 ML Susp 30 ML Cup PO PRN (09:56)
[2021-09-14] MEDS ORDERED: Furosemide 40 MG Tab PO ONE (10:15)
[2021-09-14] MEDS: Celecoxib 200 MG Cap PO SCH (11:11)
[2021-09-14] MEDS: Albuterol 0.083% 2.5 MG/3 ML Neb Soln NEB PRN (15:57)
[2021-09-15] MEDS: Acetaminophen/oxyCODONE 325-5 MG Tab PO PRN ×6 (00:42→23:46)
[2021-09-15] MEDS: Celecoxib 200 MG Cap PO SCH (08:41)
[2021-09-15] MEDS: Fluticasone NASAL Spray 16 GM Bottle NASBOTH SCH (08:43)
[2021-09-15] MEDS: Albuterol 0.083% 2.5 MG/3 ML Neb Soln NEB PRN ×2 (10:18→21:01)
[2021-09-15] MEDS: Aluminum Hydroxide/Magnesium Hydroxide/Simethicone Susp 30 ML Cup PO PRN (10:18)
[2021-09-16] MEDS: Melatonin 3 MG Tab PO PRN (01:23)
[2021-09-16] MEDS: Acetaminophen/oxyCODONE 325-5 MG Tab PO PRN ×5 (05:57→23:16)
[2021-09-16] MEDS: Fluticasone NASAL Spray 16 GM Bottle NASBOTH SCH (08:40)
[2021-09-16] MEDS: Celecoxib 200 MG Cap PO SCH (08:40)
[2021-09-16] MEDS ORDERED: Furosemide 20 MG Tab PO SCH (12:00)
[2021-09-16] MEDS: Albuterol 0.083% 2.5 MG/3 ML Neb Soln NEB PRN (16:49)
[2021-09-16] MEDS: Aluminum Hydroxide/Magnesium Hydroxide/Simethicone Susp 30 ML Cup PO PRN (22:49)
[2021-09-17] MEDS: Acetaminophen/oxyCODONE 325-5 MG Tab PO PRN ×5 (05:10→21:42)
[2021-09-17] MEDS: Celecoxib 200 MG Cap PO SCH (09:21)
[2021-09-17] MEDS: Furosemide 20 MG Tab PO SCH (09:21)
[2021-09-17] MEDS: Fluticasone NASAL Spray 16 GM Bottle NASBOTH SCH (09:22)
[2021-09-17] MEDS: Albuterol 0.083% 2.5 MG/3 ML Neb Soln NEB PRN ×2 (10:52→19:03)
[2021-09-17] MEDS ORDERED: Hydrocortisone 1% Crm 30 GM Tube TOP PRN (15:42)
[2021-09-18] MEDS: Acetaminophen/oxyCODONE 325-5 MG Tab PO PRN ×6 (02:05→22:52)
[2021-09-18] MEDS: Aluminum Hydroxide/Magnesium Hydroxide/Simethicone Susp 30 ML Cup PO PRN (07:23)
[2021-09-18] MEDS: Celecoxib 200 MG Cap PO SCH (08:32)
[2021-09-18] MEDS: Furosemide 20 MG Tab PO SCH (08:32)
[2021-09-18] MEDS: Fluticasone NASAL Spray 16 GM Bottle NASBOTH SCH (08:33)
[2021-09-18] MEDS: Albuterol 0.083% 2.5 MG/3 ML Neb Soln NEB PRN (15:17)
[2021-09-19] MEDS: Melatonin 3 MG Tab PO PRN (01:19)
[2021-09-19] MEDS: Acetaminophen/oxyCODONE 325-5 MG Tab PO PRN ×2 (03:35→08:05)
[2021-09-19] MEDS: Aluminum Hydroxide/Magnesium Hydroxide/Simethicone Susp 30 ML Cup PO PRN (06:22)
[2021-09-19 07:52] VITALS: BP 106/54; PULSE 86
[2021-09-19] MEDS: Celecoxib 200 MG Cap PO SCH (08:44)
[2021-09-19] MEDS: Fluticasone NASAL Spray 16 GM Bottle NASBOTH SCH (08:44)
[2021-09-19] MEDS: Furosemide 20 MG Tab PO SCH (08:44)
== END 2021-09-19 10:07 ==
LOC: JP.ED 23:12 → JP.MS 09-14 02:23
PROVIDERS: ADMIT Family Medicine; ATTEND Hospitalist
DX: S82.142A Displaced bicondylar fracture of left tibia, initial encounter for closed fracture (principal); J45.909 Unspecified asthma, uncomplicated; R21 Rash and other nonspecific skin eruption; M32.9 Systemic lupus erythematosus, unspecified; G89.4 Chronic pain syndrome; Z88.8 Allergy status to other drugs, medicaments and biological substances; Z91.040 Latex allergy status; Z88.1 Allergy status to other antibiotic agents; Z88.2 Allergy status to sulfonamides; Z88.0 Allergy status to penicillin; Z79.51 Long term (current) use of inhaled steroids; Z79.899 Other long term (current) drug therapy; Z20.822 Contact with and (suspected) exposure to COVID-19; X58.XXXA Exposure to other specified factors, initial encounter
CPT/HCPCS: 0241U; 36415; 73564-26-LT; 73564-LT; 73700-LT; 85027; 94640; 97110-GP; 97116-GP; 97161-GP; 97530-GP; 97535-GP; 97760-GP; 99284; 99285-25; A9270-GY; G0378; U0002

== ENCOUNTER 2021-10-22 22:44 | Emergency (ER) | payer MEDICARE ==
[2021-10-22] MEDS: Acetaminophen/oxyCODONE 325-5 MG Tab PO PRN (23:52)
[2021-10-23 02:47] VITALS: BP 141/76; PULSE 77
== END 2021-10-23 01:03 | disposition home or self-care (01) ==
LOC: JP.ED 22:44
DX: S82.142A Displaced bicondylar fracture of left tibia, initial encounter for closed fracture (principal); M25.572 Pain in left ankle and joints of left foot; Z88.8 Allergy status to other drugs, medicaments and biological substances; Z91.040 Latex allergy status; Z88.0 Allergy status to penicillin; Z88.2 Allergy status to sulfonamides; Z88.1 Allergy status to other antibiotic agents; Y92.009 Unspecified place in unspecified non-institutional (private) residence as the place of occurrence of the external cause
CPT/HCPCS: 73562; 73610; 99283; A9270

== ENCOUNTER 2021-10-23 20:42 | Inpatient (IN) | payer MEDICARE ==
[2021-10-23] MEDS ORDERED: Sodium Chloride 0.9% 1,000 ML IV STA (22:26)
[2021-10-23] MEDS ORDERED: Sodium Chloride 0.9% 10 ML Syringe FLUSH PRN (22:26)
[2021-10-23] MEDS ORDERED: Loperamide 2 MG Cap PO ONE (22:28)
[2021-10-23 23:15] LABS: ESTIMATED GFR 107 mL/min (>60)
[2021-10-23] MEDS ORDERED: Ketorolac 30 MG/ML SDV IVPUSH ONE (23:18)
[2021-10-24] MEDS ORDERED: HYDROmorphone 0.5 MG/0.5 ML Syringe IVPUSH ONE (00:37)
[2021-10-24] MEDS ORDERED: Sodium Chloride 0.9% 10 ML Syringe FLUSH PRN (01:25)
[2021-10-24] MEDS ORDERED: Sodium Chloride 0.9% 50 ML IV ONE (01:25)
[2021-10-24] MEDS ORDERED: Iopamidol 612 MG/ML 100 ML Bottle IV PRN (01:25)
[2021-10-24] MEDS ORDERED: Ciprofloxacin in D5W 400 MG in Premix Bag 1 BAG IV SCH ×2 (03:15)
[2021-10-24] MEDS ORDERED: metroNIDAZOLE/Normal Saline 500 MG in Premix Bag 1 BAG IV SCH (03:15)
[2021-10-24] MEDS ORDERED: HYDROmorphone 1 MG/ML Syringe IVPUSH ONE (03:17)
[2021-10-24] MEDS ORDERED: Lactated Ringers 1,000 ML IV ONE (03:19)
[2021-10-24] MEDS ORDERED: LORazepam 2 MG/ML SDV IV PRN (04:48)
[2021-10-24] MEDS ORDERED: Albuterol/Ipratropium 3.0-0.5 MG/3 ML Neb Soln NEB PRN (04:48)
[2021-10-24] MEDS ORDERED: Promethazine 25 MG Tab PO PRN (04:48)
[2021-10-24] MEDS ORDERED: Albuterol 0.083% 2.5 MG/3 ML Neb Soln NEB PRN ×2 (04:48→18:35)
[2021-10-24] MEDS ORDERED: Potassium Chloride 20 MEQ in Premix Bag 1 BAG IV ONE (04:48)
[2021-10-24] MEDS ORDERED: Ketorolac 30 MG/ML SDV IM PRN (05:00)
[2021-10-24] MEDS ORDERED: Lidocaine 1% 5 ML VIAL INJECT ONE (05:12)
[2021-10-24] MEDS: Sodium Chloride 0.9% 1,000 ML IV SCH ×2 (05:14→22:49)
[2021-10-24] MEDS ORDERED: Lidocaine 1% 5 ML VIAL ONE (05:14)
[2021-10-24] MEDS ORDERED: HYDROmorphone 1 MG/ML Syringe IVPUSH PRN (05:15)
[2021-10-24] MEDS: oxyCODONE 5 MG Tab PO PRN ×5 (05:33→22:48)
[2021-10-24] MEDS: Acetaminophen 325 MG Tab PO PRN ×5 (05:36→22:48)
[2021-10-24] MEDS: Pantoprazole 40 MG Vial IV SCH (07:38)
[2021-10-24] MEDS ORDERED: Enoxaparin 40 MG/0.4 ML Syringe SUBCUT SCH (09:00)
[2021-10-24] MEDS: metroNIDAZOLE/Normal Saline 500 MG in Premix Bag 1 BAG IV SCH ×2 (13:08→19:18)
[2021-10-24] MEDS: Ciprofloxacin in D5W 400 MG in Premix Bag 1 BAG IV SCH ×2 (16:17)
[2021-10-24] MEDS ORDERED: Hydrocortisone 1% Crm 30 GM Tube TOP PRN (18:35)
[2021-10-24] MEDS ORDERED: Albuterol 8 GM Inhaler INH PRN (18:35)
[2021-10-24] MEDS: Fluticasone NASAL Spray 16 GM Bottle NASBOTH SCH (19:17)
[2021-10-24] MEDS: Celecoxib 200 MG Cap PO SCH (19:17)
[2021-10-25] MEDS: Acetaminophen/oxyCODONE 325-5 MG Tab PO PRN ×6 (03:07→23:45)
[2021-10-25] MEDS: metroNIDAZOLE/Normal Saline 500 MG in Premix Bag 1 BAG IV SCH ×3 (03:17→20:55)
[2021-10-25] MEDS: Ciprofloxacin in D5W 400 MG in Premix Bag 1 BAG IV SCH ×4 (04:37→18:12)
[2021-10-25] MEDS: Pantoprazole 40 MG Vial IV SCH (07:34)
[2021-10-25] MEDS: Fluticasone NASAL Spray 16 GM Bottle NASBOTH SCH (08:39)
[2021-10-25 08:40] LABS: ESTIMATED GFR 103 mL/min (>60)
[2021-10-25] MEDS: Sodium Chloride 0.9% 1,000 ML IV SCH (08:57)
[2021-10-25] MEDS ORDERED: Lidocaine 1% 5 ML VIAL INJECT ONE (09:19)
[2021-10-25] MEDS ORDERED: Potassium Chloride 20 MEQ, Lidocaine 1% 2 ML in Sodium Chloride 0.9% 100 ML IV ONE ×2 (10:00→16:00)
[2021-10-25] MEDS ORDERED: Potassium Chloride 20 MEQ Tab.ER PO ONE (10:00)
[2021-10-25] MEDS ORDERED: Magnesium Sulfate/Water 2 GM in Premix Bag 1 BAG IV ONE (16:00)
[2021-10-26] MEDS: metroNIDAZOLE/Normal Saline 500 MG in Premix Bag 1 BAG IV SCH ×2 (03:43→12:04)
[2021-10-26] MEDS: Acetaminophen/oxyCODONE 325-5 MG Tab PO PRN ×4 (03:46→15:52)
[2021-10-26] MEDS: Ciprofloxacin in D5W 400 MG in Premix Bag 1 BAG IV SCH ×2 (05:50)
[2021-10-26] MEDS: Pantoprazole 40 MG Vial IV SCH (07:37)
[2021-10-26] MEDS: Fluticasone NASAL Spray 16 GM Bottle NASBOTH SCH (08:12)
[2021-10-26] MEDS: Celecoxib 200 MG Cap PO SCH (08:12)
[2021-10-26 10:53] VITALS: BP 119/70; PULSE 93
== END 2021-10-26 16:09 | disposition home or self-care (01) | DRG 392 ==
LOC: JP.ED 20:42 → JP.MS 10-24 03:58
PROVIDERS: ADMIT Internal Medicine; ATTEND Internal Medicine
DX: K52.9 Noninfective gastroenteritis and colitis, unspecified (principal); M32.9 Systemic lupus erythematosus, unspecified; M81.0 Age-related osteoporosis without current pathological fracture; M16.11 Unilateral primary osteoarthritis, right hip; Z86.14 Personal history of Methicillin resistant Staphylococcus aureus infection; Z88.0 Allergy status to penicillin; Z88.2 Allergy status to sulfonamides; Z88.8 Allergy status to other drugs, medicaments and biological substances; Z88.1 Allergy status to other antibiotic agents; Z91.040 Latex allergy status; J45.909 Unspecified asthma, uncomplicated; G89.4 Chronic pain syndrome; Z96.641 Presence of right artificial hip joint; Z96.611 Presence of right artificial shoulder joint; E87.6 Hypokalemia; K62.89 Other specified diseases of anus and rectum; Z20.822 Contact with and (suspected) exposure to COVID-19; S82.142D Displaced bicondylar fracture of left tibia, subsequent encounter for closed fracture with routine healing; Z79.1 Long term (current) use of non-steroidal anti-inflammatories (NSAID); Z79.52 Long term (current) use of systemic steroids; Z79.899 Other long term (current) drug therapy; Z90.49 Acquired absence of other specified parts of digestive tract; W18.30XD Fall on same level, unspecified, subsequent encounter
CPT/HCPCS: 36415 ×2; 74177; 80053; 81001; 83605; 83690; 84145; 85025; 86140; 96361 ×2; 96365; 96375 ×2; 96376; 99285; A9270; J1170 ×2; J1885; J3490 ×4; J7030; J7120; Q9967; U0002; 83735; 84132; 87040; 97162-GP; 97535-GP; 99284; C9113; J0744; J1650; J2001; J3475; J3480

== ENCOUNTER 2021-11-25 21:35 | Inpatient (IN) | payer MEDICARE ==
[2021-11-25] MEDS ORDERED: Sodium Chloride 0.9% 10 ML Syringe FLUSH PRN ×2 (21:39→23:45)
[2021-11-25] MEDS ORDERED: HYDROmorphone 1 MG/ML Syringe IVPUSH ONE (21:39)
[2021-11-25] MEDS ORDERED: Acetaminophen 1,000 MG in Premix Bag 1 BAG IV SCH (23:45)
[2021-11-25] MEDS ORDERED: Magnesium Hydroxide 400 MG/5 ML Susp 30 ML Cup PO PRN (23:45)
[2021-11-25] MEDS ORDERED: Ondansetron 4 MG/2 ML SDV IV PRN (23:45)
[2021-11-25] MEDS ORDERED: Albuterol 0.083% 2.5 MG/3 ML Neb Soln NEB PRN (23:58)
[2021-11-26] MEDS: Dextrose 5%-0.45% NaCl 1,000 ML IV SCH ×2 (01:53→12:09)
[2021-11-26] MEDS: HYDROmorphone 1 MG/ML Syringe IVPUSH PRN ×4 (02:21→14:35)
[2021-11-26] MEDS: Pantoprazole 40 MG Vial IVPUSH SCH (08:30)
[2021-11-26] MEDS ORDERED: Bupivacaine 0.5% 30 ML SDV ONE (14:10)
[2021-11-26] MEDS ORDERED: Neostigmine Methylsulfate 1 MG/ML 5 ML Syringe ONE (15:45)
[2021-11-26] MEDS ORDERED: Rocuronium 50 MG/5 ML Vial ONE (15:45)
[2021-11-26] MEDS ORDERED: Labetalol 20 MG/4 ML Syringe ONE (15:45)
[2021-11-26] MEDS ORDERED: Propofol 200 MG/20 ML SDV ONE (15:45)
[2021-11-26] MEDS ORDERED: Ondansetron 4 MG/2 ML SDV ONE (15:45)
[2021-11-26] MEDS ORDERED: fentaNYL 250 MCG/5 ML SDV ONE ×2 (15:45)
[2021-11-26] MEDS ORDERED: Glycopyrrolate 0.2 MG/ML 5 ML MDV ONE (16:00)
[2021-11-26] MEDS ORDERED: ceFAZolin 2 GM in Sodium Chloride 0.9% 50 ML IV ONE (16:30)
[2021-11-26] MEDS ORDERED: Albuterol/Ipratropium 3.0-0.5 MG/3 ML Neb Soln NEB ONE (16:30)
[2021-11-26] MEDS ORDERED: ceFAZolin 2 GM in Premix Bag 1 BAG IV ONE (16:30)
[2021-11-26] MEDS ORDERED: Lactated Ringers 100 ML IV ONE (16:30)
[2021-11-26] MEDS ORDERED: methylPREDNISolone Sodium Succinate 125 MG/2 ML SDV IVPUSH ONE (16:30)
[2021-11-26] MEDS ORDERED: traMADol 50 MG Tab PO PRN (17:48)
[2021-11-26] MEDS: Acetaminophen 325 MG Tab PO SCH ×2 (19:36→23:27)
[2021-11-26] MEDS: oxyCODONE 5 MG Tab PO PRN ×2 (19:37→23:28)
[2021-11-26] MEDS: Sodium Chloride 0.9% 1,000 ML IV SCH (19:46)
[2021-11-26] MEDS ORDERED: Bacitracin Oint 1 GM U/D Packet TOP SCH (21:00)
[2021-11-26] MEDS ORDERED: Bacitracin Oint 1 GM U/D Packet TOP PRN (21:10)
[2021-11-27] MEDS: oxyCODONE 5 MG Tab PO PRN ×6 (03:34→23:41)
[2021-11-27] MEDS: Acetaminophen 325 MG Tab PO SCH ×4 (05:49→23:41)
[2021-11-27] MEDS: Sodium Chloride 0.9% 1,000 ML IV SCH (07:21)
[2021-11-27] MEDS: Pantoprazole 40 MG Vial IVPUSH SCH (08:21)
[2021-11-27] MEDS: Albuterol 8 GM Inhaler INH PRN (16:24)
[2021-11-27] MEDS: Celecoxib 200 MG Cap PO SCH (20:05)
[2021-11-28] MEDS: oxyCODONE 5 MG Tab PO PRN ×6 (03:36→23:40)
[2021-11-28] MEDS: Acetaminophen 325 MG Tab PO SCH ×4 (05:58→23:40)
[2021-11-28] MEDS: Pantoprazole 40 MG Tab.CR PO SCH (07:34)
[2021-11-28] MEDS: Fluticasone NASAL Spray 16 GM Bottle NASBOTH SCH (09:20)
[2021-11-28] MEDS: Albuterol 8 GM Inhaler INH PRN ×3 (09:20→20:24)
[2021-11-28] MEDS: Celecoxib 200 MG Cap PO SCH ×2 (09:20→20:25)
[2021-11-28] MEDS ORDERED: Bupivacaine 0.5% 10 ML SDV INJECT ONE ×2 (12:15)
[2021-11-28] MEDS ORDERED: Betamethasone Acetate/Betamethasone Sod Phosphate 30 MG/5 ML MDV IARTIC ONE ×2 (12:15)
[2021-11-29] MEDS: oxyCODONE 5 MG Tab PO PRN ×5 (03:40→20:04)
[2021-11-29] MEDS: Acetaminophen 325 MG Tab PO SCH ×3 (06:06→17:47)
[2021-11-29] MEDS: Pantoprazole 40 MG Tab.CR PO SCH (07:58)
[2021-11-29] MEDS: Fluticasone NASAL Spray 16 GM Bottle NASBOTH SCH (08:00)
[2021-11-29] MEDS: Celecoxib 200 MG Cap PO SCH ×2 (08:01→21:11)
[2021-11-29] MEDS: Albuterol 8 GM Inhaler INH PRN (08:01)
[2021-11-30] MEDS: oxyCODONE 5 MG Tab PO PRN ×6 (00:11→20:43)
[2021-11-30] MEDS: Acetaminophen 325 MG Tab PO SCH ×4 (00:11→17:40)
[2021-11-30] MEDS: Albuterol 8 GM Inhaler INH PRN ×3 (00:12→17:45)
[2021-11-30] MEDS: Pantoprazole 40 MG Tab.CR PO SCH (07:24)
[2021-11-30] MEDS: Celecoxib 200 MG Cap PO SCH ×2 (08:31→20:43)
[2021-11-30] MEDS: Fluticasone NASAL Spray 16 GM Bottle NASBOTH SCH (08:32)
[2021-12-01] MEDS: oxyCODONE 5 MG Tab PO PRN ×6 (00:39→23:51)
[2021-12-01] MEDS: Acetaminophen 325 MG Tab PO SCH ×5 (00:39→23:51)
[2021-12-01] MEDS: Albuterol 8 GM Inhaler INH PRN ×4 (00:50→18:08)
[2021-12-01] MEDS: Pantoprazole 40 MG Tab.CR PO SCH (06:57)
[2021-12-01] MEDS: Fluticasone NASAL Spray 16 GM Bottle NASBOTH SCH (08:40)
[2021-12-01] MEDS: Celecoxib 200 MG Cap PO SCH ×2 (08:40→20:15)
[2021-12-01] MEDS ORDERED: oxyCODONE 5 MG Tab PO PRN (13:32)
[2021-12-01] MEDS ORDERED: Diclofenac Sodium 1% Gel 100 GM Tube TOP PRN (14:16)
[2021-12-02] MEDS: oxyCODONE 5 MG Tab PO PRN ×3 (03:51→11:55)
[2021-12-02] MEDS: Acetaminophen 325 MG Tab PO SCH ×2 (06:07→11:54)
[2021-12-02] MEDS: Albuterol 8 GM Inhaler INH PRN (07:17)
[2021-12-02] MEDS: Celecoxib 200 MG Cap PO SCH (09:05)
[2021-12-02] MEDS: Pantoprazole 40 MG Tab.CR PO SCH (09:05)
[2021-12-02] MEDS: Fluticasone NASAL Spray 16 GM Bottle NASBOTH SCH (09:05)
[2021-12-02 10:41] VITALS: BP 128/62; PULSE 87
== END 2021-12-02 12:10 | DRG 511 ==
LOC: JP.ED 21:35 → JP.MS 23:45
PROVIDERS: ADMIT Family Medicine; ATTEND Hospitalist
PROC: 0PSH04Z Reposition Right Radius with Internal Fixation Device, Open Approach (ICD-10-PCS; principal; 2021-11-26)
DX: S52.532A Colles' fracture of left radius, initial encounter for closed fracture (principal); S22.080A Wedge compression fracture of T11-T12 vertebra, initial encounter for closed fracture; S52.531A Colles' fracture of right radius, initial encounter for closed fracture; S32.030A Wedge compression fracture of third lumbar vertebra, initial encounter for closed fracture; M32.9 Systemic lupus erythematosus, unspecified; Z96.612 Presence of left artificial shoulder joint; W19.XXXA Unspecified fall, initial encounter; Z96.641 Presence of right artificial hip joint; M81.0 Age-related osteoporosis without current pathological fracture; Z91.040 Latex allergy status; Z20.822 Contact with and (suspected) exposure to COVID-19; Z79.51 Long term (current) use of inhaled steroids; Z79.899 Other long term (current) drug therapy; Z88.2 Allergy status to sulfonamides; Z88.1 Allergy status to other antibiotic agents; Z88.0 Allergy status to penicillin; W18.30XA Fall on same level, unspecified, initial encounter
CPT/HCPCS: 36415; 72100 ×2; 73110 ×2; 73560 ×2; 73590 ×2; 80048; 85025; 96374; 99284; J1170; J3490; U0002; 76000; 94640; 97110-GO; 97110-GP; 97162-GP; 97165-GO; 97530-GP; 97535-GO; 97535-GP; 99231; 99238; A9270-GY; C1713; C9113; J0690; J0702; J2405; J2704; J2710; J2930; J3010; J7030; J7042; J7120; J7620

== ENCOUNTER 2022-01-16 16:48 | Emergency (ER) | payer MEDICARE ==
[2022-01-16] MEDS ORDERED: Sodium Chloride 0.9% 1,000 ML IV ONE (16:49)
[2022-01-16] MEDS ORDERED: Acetaminophen/oxyCODONE 325-5 MG Tab ONE (18:38)
[2022-01-16] MEDS ORDERED: Ketorolac 30 MG/ML SDV ONE (18:38)
[2022-01-16] MEDS ORDERED: metroNIDAZOLE 250 MG Tab ONE (18:38)
[2022-01-16] MEDS ORDERED: Ciprofloxacin 500 MG Tab ONE (18:38)
[2022-01-16] MEDS ORDERED: Iopamidol 612 MG/ML 100 ML Bottle IV SCH (19:33)
[2022-02-10 19:18] LABS: ESTIMATED GFR 107 mL/min (>60)
== END 2022-01-16 22:15 | disposition home or self-care (01) ==
LOC: JP.ED 16:48
DX: K52.9 Noninfective gastroenteritis and colitis, unspecified (principal); E87.1 Hypo-osmolality and hyponatremia; F10.129 Alcohol abuse with intoxication, unspecified; Z20.822 Contact with and (suspected) exposure to COVID-19
CPT/HCPCS: 36415; 74177; 80053; 80307; 81001; 85025; 85651; 87086; 96361; 96374; 99284; A9270; J1885; J7030; Q9967; U0002

== ENCOUNTER 2022-06-09 12:54 | Inpatient (IN) | payer MEDICARE ==
[2022-06-09] MEDS ORDERED: HYDROmorphone 0.5 MG/0.5 ML Syringe IM ONE (13:23)
[2022-06-09] MEDS ORDERED: Sodium Chloride 0.9% 10 ML Syringe FLUSH PRN ×2 (13:33→16:53)
[2022-06-09 14:13] LABS: ESTIMATED GFR 99 mL/min (>60)
[2022-06-09 15:57] LABS: CORONAVIRUS COVID-19 NAA NEGATIVE (NEGATIVE)
[2022-06-09] MEDS ORDERED: Ondansetron 4 MG/2 ML SDV IV PRN (16:53)
[2022-06-09] MEDS ORDERED: Pantoprazole 40 MG Tab.CR PO PRN (16:53)
[2022-06-09] MEDS ORDERED: Albuterol 90 MCG/6.7 GM Inhaler INH PRN (16:53)
[2022-06-09] MEDS ORDERED: Albuterol 0.083% 2.5 MG/3 ML Neb Soln NEB PRN (16:53)
[2022-06-09] MEDS: oxyCODONE 5 MG Tab PO PRN ×2 (17:13→21:25)
[2022-06-09] MEDS: Acetaminophen 325 MG Tab PO PRN ×2 (17:14→21:26)
[2022-06-09] MEDS: Sodium Chloride 0.9% 1,000 ML IV SCH (17:23)
[2022-06-09] MEDS ORDERED: Enoxaparin 40 MG/0.4 ML Syringe SUBCUT SCH (18:00)
[2022-06-09] MEDS: Celecoxib 200 MG Cap PO SCH (20:37)
[2022-06-10] MEDS: Acetaminophen 325 MG Tab PO PRN ×5 (03:08→20:23)
[2022-06-10] MEDS: oxyCODONE 5 MG Tab PO PRN ×5 (03:09→20:23)
[2022-06-10] MEDS: Sodium Chloride 0.9% 1,000 ML IV SCH ×2 (06:03→09:34)
[2022-06-10] MEDS: Celecoxib 200 MG Cap PO SCH ×2 (08:22→20:23)
[2022-06-10] MEDS: Fluticasone NASAL Spray 16 GM Bottle NASBOTH SCH (08:22)
[2022-06-10] MEDS ORDERED: Potassium Chloride 20 MEQ Tab.ER PO ONE ×2 (10:00→17:00)
[2022-06-10] MEDS: Ferrous Sulfate 325 MG Tab PO SCH (16:27)
[2022-06-11] MEDS: oxyCODONE 5 MG Tab PO PRN ×6 (01:01→23:18)
[2022-06-11] MEDS: Acetaminophen 325 MG Tab PO PRN ×5 (01:02→23:17)
[2022-06-11] MEDS: Famotidine 20 MG Tab PO PRN (03:12)
[2022-06-11] MEDS ORDERED: Potassium Chloride 10 MEQ Cap.ER PO ONE (07:00)
[2022-06-11] MEDS ORDERED: Potassium Chloride 10 MEQ in Premix Bag 1 BAG IV SCH (07:00)
[2022-06-11] MEDS: Ferrous Sulfate 325 MG Tab PO SCH ×2 (07:28→17:51)
[2022-06-11] MEDS: Potassium Chloride 10 MEQ in Premix Bag 1 BAG IV SCH ×4 (07:30→11:38)
[2022-06-11] MEDS: Fluticasone NASAL Spray 16 GM Bottle NASBOTH SCH (08:44)
[2022-06-11] MEDS: Celecoxib 200 MG Cap PO SCH ×2 (08:44→20:13)
[2022-06-11] MEDS ORDERED: Potassium Chloride 20 MEQ Tab.ER PO ONE ×2 (09:00→13:00)
[2022-06-12] MEDS: oxyCODONE 5 MG Tab PO PRN ×5 (04:24→21:13)
[2022-06-12] MEDS: Acetaminophen 325 MG Tab PO PRN ×5 (04:24→21:13)
[2022-06-12] MEDS: Fluticasone NASAL Spray 16 GM Bottle NASBOTH SCH (08:25)
[2022-06-12] MEDS: Celecoxib 200 MG Cap PO SCH ×2 (08:25→21:13)
[2022-06-12] MEDS: Famotidine 20 MG Tab PO PRN (08:25)
[2022-06-12] MEDS: Ferrous Sulfate 325 MG Tab PO SCH ×2 (08:25→18:12)
[2022-06-13] MEDS: Acetaminophen 325 MG Tab PO PRN ×3 (01:22→09:58)
[2022-06-13] MEDS: oxyCODONE 5 MG Tab PO PRN ×3 (01:22→09:57)
[2022-06-13] MEDS: Famotidine 20 MG Tab PO PRN (08:30)
[2022-06-13] MEDS: Ferrous Sulfate 325 MG Tab PO SCH (08:31)
[2022-06-13] MEDS: Fluticasone NASAL Spray 16 GM Bottle NASBOTH SCH (08:31)
[2022-06-13] MEDS: Celecoxib 200 MG Cap PO SCH (08:31)
[2022-06-13 11:26] VITALS: BP 127/57; PULSE 96
== END 2022-06-13 13:15 | DRG 563 ==
LOC: JP.ED 12:54 → JP.MS 14:49 → OBSVTOIN 06-10 10:49
PROVIDERS: ADMIT Hospitalist; ATTEND Hospitalist
DX: S82.141A Displaced bicondylar fracture of right tibia, initial encounter for closed fracture (principal); E46 Unspecified protein-calorie malnutrition; D62 Acute posthemorrhagic anemia; M81.0 Age-related osteoporosis without current pathological fracture; M32.9 Systemic lupus erythematosus, unspecified; J45.909 Unspecified asthma, uncomplicated; W18.30XA Fall on same level, unspecified, initial encounter; Z96.641 Presence of right artificial hip joint; D75.1 Secondary polycythemia; Z96.611 Presence of right artificial shoulder joint; E87.6 Hypokalemia; F10.20 Alcohol dependence, uncomplicated; Y92.89 Other specified places as the place of occurrence of the external cause; Z88.0 Allergy status to penicillin; Z88.2 Allergy status to sulfonamides; Z88.8 Allergy status to other drugs, medicaments and biological substances; Z88.1 Allergy status to other antibiotic agents; Z91.040 Latex allergy status; Z90.49 Acquired absence of other specified parts of digestive tract; Z98.890 Other specified postprocedural states; Z68.20 Body mass index [BMI] 20.0-20.9, adult
CPT/HCPCS: 0241U; 36415; 73030-26-RT; 73030-RT; 73502-26-RT; 73502-RT; 73562-26-RT; 73562-RT; 73590-26-RT; 73590-RT; 80048; 80053; 81001; 83735; 84132; 85018; 85025; 85610; 85730; 90686; 96360; 96361; 96372; 97110-GP; 97161-GP; 97530-GP; 99284; A9270-GY; G0378; J1170; J1650; J3480; J7030

== ENCOUNTER 2024-05-01 16:52 | Inpatient (IN) | payer MEDICARE ==
[2024-05-01 17:28] LABS: BASOPHILS ABSOLUTE AUTO 0.04 K/uL (0.00-0.10); BASOPHILS PERCENT AUTO 0.1 % (0.1-1.3); EOSINOPHILS ABSOLUTE AUTO 0.04 K/uL (0.00-0.40); EOSINOPHILS PERCENT AUTO 0.1 % (0.0-5.4); HEMATOCRIT 31.7 % (34.3-46.0); HEMOGLOBIN 11.9 g/dL (11.2-15.5); IMMATURE GRAN PERCENT AUTO 0.7 % (0.0-0.7); LYMPHOCYTES ABSOLUTE AUTO 1.23 K/uL (0.8-3.3); MEAN CORPUSCULAR HGB CONC 37.5 g/dL (31.6-35.5); MEAN CORPUSCULAR VOLUME 93.2 fL (81.4-99.0); MONOCYTES ABSOLUTE AUTO 0.84 K/uL (0.20-0.90); MONOCYTES PERCENT AUTO 2.8 % (3.3-12.6); NEUTROPHILS ABSOLUTE AUTO 28.13 K/uL (1.0-7.6); NEUTROPHILS PERCENT AUTO 92.3 % (40.0-78.1); PLATELET COUNT,PLT 183 K/uL (130-375)
[2024-05-01 17:31] LABS: WHITE BLOOD CELL COUNT,WBC 30.5 K/uL (3.2-11.0)
[2024-05-01 17:47] LABS: A/G RATIO 0.6 (1.2-2.2); ALANINE AMINOTRANSFERASE,ALT 16 U/L (12-78); ALBUMIN 2.6 g/dL (3.4-5.0); ALKALINE PHOSPHATASE 109 U/L (46-116); ASPARTATE AMNIOTRANSFERASE,AST 32 U/L (15-37); BILIRUBIN TOTAL 0.8 mg/dL (0.2-1.0); BLOOD UREA NITROGEN,BUN 48 mg/dL (7-18); C-REACTIVE PROTEIN 13.72 mg/dL (<0.50); CALCIUM 9.8 mg/dL (8.5-10.1); CARBON DIOXIDE,CO2 30 mmol/L (21-32); CHLORIDE,CL 87 mmol/L (100-108); CREATININE 1.1 mg/dL (0.6-1.0); EST CRCL DRUG DOSING (CG) 45.57 mL/min; ESTIMATED GFR 57 mL/min (>60); GLUCOSE RANDOM 140 mg/dL (74-106); PROTEIN TOTAL,TP 6.7 g/dL (6.4-8.2); SODIUM,NA 129 mmol/L (140-148)
[2024-05-01 17:49] LABS: APPEARANCE,URINE SLIGHTLY CLOUDY (CLEAR); BILIRUBIN,URINE MODERATE (NEGATIVE); COLOR,URINE YELLOW (YELLOW); GLUCOSE,URINE NEGATIVE (NEGATIVE); KETONES,URINE 15 mg/dL (NEGATIVE); LEUKOCYTE ESTERASE,URINE SMALL (NEGATIVE); NITRITE,URINE NEGATIVE (NEGATIVE); OCCULT BLOOD,URINE NEGATIVE (NEGATIVE); PH,URINE 6.5 (5.0-8.0); PROTEIN,URINE 100 mg/dL (NEGATIVE); UROBILINOGEN,URINE 0.2 EU/dL (0.2-1.0)
[2024-05-01 17:53] LABS: ANION GAP 13.7 mmol/L (5.0-14.0); POTASSIUM,K 1.7 mmol/L (3.6-5.2)
[2024-05-01 17:56] LABS: AMORPHOUS SEDIMENT,URINE NOT SEEN; BACTERIA,URINE MODERATE; EPITHELIAL CELLS,URINE FEW; MUCUS,URINE MODERATE; RBC,URINE 0-5 (0-5); WBC,URINE PACKED (0-5)
[2024-05-01 17:58] LABS: LACTIC ACID 2.6 mmol/L (0.4-2.0)
[2024-05-01 18:03] LABS: SEDIMENTATION RATE MANUAL 27 mm/hr (0-25)
[2024-05-01] MEDS: Potassium Chloride 20 MEQ in Premix Bag 1 BAG IV ONE (18:05)
[2024-05-01] MEDS: Potassium Chloride 10% 20 MEQ/15 ML Soln 15 ML UD Cup PO ONE (18:08)
[2024-05-01] MEDS: Sodium Chloride 0.9% 500 ML IV ONE ×2 (18:10→20:20)
[2024-05-01] MEDS: Potassium Chloride 20 MEQ Tab.ER PO ONE (18:53)
[2024-05-01] MEDS ORDERED: Potassium Chloride 10 MEQ in Premix Bag 1 BAG IV SCH (20:15)
[2024-05-01] MEDS: cefTRIAXone 2 GM in Sodium Chloride 0.9% 50 ML IV SCH (20:19)
[2024-05-01] MEDS: Phenazopyridine 95 MG Tab PO PRN (20:24)
[2024-05-01] MEDS: Sodium Chloride 0.9% 1,000 ML IV SCH ×2 (20:24→22:09)
[2024-05-01] MEDS ORDERED: Phenazopyridine 95 MG Tab PO PRN (20:26)
[2024-05-01] MEDS: Doxycycline 100 MG in Sodium Chloride 0.9% 100 ML IV SCH (21:12)
[2024-05-01] MEDS ORDERED: Enoxaparin 30 MG/0.3 ML Syringe SUBCUT SCH (21:43)
[2024-05-01] MEDS ORDERED: Melatonin 3 MG Tab PO PRN (21:43)
[2024-05-01] MEDS ORDERED: Albuterol 0.083% 2.5 MG/3 ML Neb Soln NEB PRN (21:43)
[2024-05-01] MEDS ORDERED: LORazepam 2 MG/ML SDV IVPUSH PRN (21:43)
[2024-05-01] MEDS: Potassium Chloride 10 MEQ in Premix Bag 1 BAG IV SCH (22:08)
[2024-05-01] MEDS ORDERED: diphenhydrAMINE 25 MG Cap PO PRN (22:10)
[2024-05-01] MEDS ORDERED: Cyclobenzaprine 10 MG Tab PO PRN (22:10)
[2024-05-01] MEDS: Acetaminophen 325 MG Tab PO PRN (22:24)
[2024-05-01] MEDS: Sennosides/Docusate Sodium 50-8.6 MG Tab PO PRN (22:24)
[2024-05-01] MEDS: Lactobacillus Rhamnosus GG (Probiotic) Cap PO SCH (22:24)
[2024-05-01] MEDS: Magnesium Sulfate/Water Premix 2 GM in Premix Bag 1 BAG IV SCH (22:25)
[2024-05-01] MEDS: Albuterol/Ipratropium 3.0-0.5 MG/3 ML Neb Soln NEB SCH (22:25)
[2024-05-01] MEDS: Enoxaparin 40 MG/0.4 ML Syringe SUBCUT SCH (22:25)
[2024-05-01] MEDS: Gabapentin 100 MG Cap PO SCH (22:46)
[2024-05-02] MEDS: Potassium Chloride 20 MEQ Tab.ER PO ONE ×2 (00:57→04:50)
[2024-05-02] MEDS: Potassium Chloride 10 MEQ in Premix Bag 1 BAG IV SCH ×2 (00:59→04:49)
[2024-05-02 03:40] LABS: MEAN CORPUSCULAR HEMOGLOBIN 34.8 pg (31.6-35.5); MEAN CORPUSCULAR VOLUME 94.1 fL (81.4-99.0); RED BLOOD CELL COUNT 2.87 M/uL (3.77-5.24)
[2024-05-02 03:43] LABS: WHITE BLOOD CELL COUNT,WBC 30.7 K/uL (3.2-11.0)
[2024-05-02 03:50] LABS: CALCIUM 8.6 mg/dL (8.5-10.1); EST CRCL DRUG DOSING (CG) 42.54 mL/min; POTASSIUM,K 3.1 mmol/L (3.6-5.2)
[2024-05-02 03:56] LABS: ANION GAP 14.1 mmol/L (5.0-14.0)
[2024-05-02] MEDS: Ferrous Sulfate 325 MG Tab PO SCH (08:20)
[2024-05-02] MEDS: Celecoxib 200 MG Cap PO SCH (08:20)
[2024-05-02] MEDS: Pantoprazole 40 MG Tab.CR PO SCH (08:20)
[2024-05-02] MEDS: Doxycycline 100 MG in Sodium Chloride 0.9% 100 ML IV SCH (08:58)
[2024-05-02] MEDS: Ondansetron 4 MG/2 ML SDV IVPUSH PRN (09:12)
[2024-05-02] MEDS: Albuterol/Ipratropium 3.0-0.5 MG/3 ML Neb Soln NEB SCH (11:09)
[2024-05-02] MEDS: Fluticasone NASAL Spray 16 GM Bottle NASBOTH SCH (13:52)
[2024-05-02 20:50] LABS: HEMATOCRIT 25.1 % (34.3-46.0); HEMOGLOBIN 9.1 g/dL (11.2-15.5); MEAN CORPUSCULAR HEMOGLOBIN 34.9 pg (31.6-35.5); MEAN CORPUSCULAR HGB CONC 36.3 g/dL (31.6-35.5); MEAN CORPUSCULAR VOLUME 96.2 fL (81.4-99.0); RED BLOOD CELL COUNT 2.61 M/uL (3.77-5.24); WHITE BLOOD CELL COUNT,WBC 23.9 K/uL (3.2-11.0)
[2024-05-02 20:53] LABS: BASE EXCESS VENOUS -6.2 mm/L; BICARBONATE,VENOUS 18.7 mmol/L; CARBOXYHEMOGLOBIN 2.3 % (0.0-1.6); METHEMOGLOBIN 0.9 %; O2 SATURATION VENOUS 70.6; OXYHEMOGLOBIN 68.3 %; PCO2 VENOUS 36.8 mm/Hg; PH,VENOUS 7.326 (7.350-7.450); TOTAL HEMOGLOBIN 9.5 g/dL (12.0-16.0)
[2024-05-02] MEDS: Sodium Chloride 0.9% 500 ML IV STA (20:55)
[2024-05-02 21:06] LABS: PO2 VENOUS 37.8 mm/Hg
[2024-05-02 21:20] LABS: BLOOD UREA NITROGEN,BUN 40 mg/dL (7-18); C-REACTIVE PROTEIN 11.45 mg/dL (<0.50); CALCIUM 8.4 mg/dL (8.5-10.1); CARBON DIOXIDE,CO2 20 mmol/L (21-32); CHLORIDE,CL 99 mmol/L (100-108); CREATININE 0.9 mg/dL (0.6-1.0); EST CRCL DRUG DOSING (CG) 49.93 mL/min; ESTIMATED GFR 72 mL/min (>60); GLUCOSE RANDOM 135 mg/dL (74-106); PHOSPHORUS 0.9 mg/dL (2.5-4.9); POTASSIUM,K 4.6 mmol/L (3.6-5.2); SODIUM,NA 129 mmol/L (140-148)
[2024-05-02 21:21] LABS: ANION GAP 14.6 mmol/L (5.0-14.0); LACTIC ACID 2.4 mmol/L (0.4-2.0)
[2024-05-03 05:41] LABS: HEMATOCRIT 23.7 % (34.3-46.0); HEMOGLOBIN 8.5 g/dL (11.2-15.5); MEAN CORPUSCULAR HEMOGLOBIN 35.3 pg (31.6-35.5); MEAN CORPUSCULAR HGB CONC 35.9 g/dL (31.6-35.5); MEAN CORPUSCULAR VOLUME 98.3 fL (81.4-99.0); RED BLOOD CELL COUNT 2.41 M/uL (3.77-5.24); WHITE BLOOD CELL COUNT,WBC 18.5 K/uL (3.2-11.0)
[2024-05-03 06:09] LABS: A/G RATIO 0.6 (1.2-2.2); ALANINE AMINOTRANSFERASE,ALT 15 U/L (12-78); ALBUMIN 1.8 g/dL (3.4-5.0); ALKALINE PHOSPHATASE 84 U/L (46-116); ASPARTATE AMNIOTRANSFERASE,AST 30 U/L (15-37); BILIRUBIN DIRECT 0.23 mg/dL (0.0-0.2); BILIRUBIN INDIRECT 0.17; BILIRUBIN TOTAL 0.4 mg/dL (0.2-1.0); BLOOD UREA NITROGEN,BUN 36 mg/dL (7-18); C-REACTIVE PROTEIN 9.29 mg/dL (<0.50); CALCIUM 8.2 mg/dL (8.5-10.1); CARBON DIOXIDE,CO2 19 mmol/L (21-32); CHLORIDE,CL 103 mmol/L (100-108); CREATININE 0.7 mg/dL (0.6-1.0); EST CRCL DRUG DOSING (CG) 64.19 mL/min; ESTIMATED GFR 98 mL/min (>60); GLUCOSE RANDOM 103 mg/dL (74-106); MAGNESIUM 1.9 mg/dL (1.8-2.4); PHOSPHORUS 0.7 mg/dL (2.5-4.9); POTASSIUM,K 4.4 mmol/L (3.6-5.2); SODIUM,NA 131 mmol/L (140-148)
[2024-05-03 06:11] LABS: ANION GAP 13.4 mmol/L (5.0-14.0)
[2024-05-03] MEDS: SODIUM PHOSPHATE IV ONE (10:36)
[2024-05-03] MEDS: SODIUM CHLORIDE IV ONE (10:36)
[2024-05-04 05:48] LABS: HEMATOCRIT 22.9 % (34.3-46.0); MEAN CORPUSCULAR HEMOGLOBIN 34.3 pg (31.6-35.5); MEAN CORPUSCULAR HGB CONC 34.9 g/dL (31.6-35.5); MEAN CORPUSCULAR VOLUME 98.3 fL (81.4-99.0); RED BLOOD CELL COUNT 2.33 M/uL (3.77-5.24); WHITE BLOOD CELL COUNT,WBC 15.4 K/uL (3.2-11.0)
[2024-05-04 06:04] LABS: ALBUMIN 1.8 g/dL (3.4-5.0); BLOOD UREA NITROGEN,BUN 28 mg/dL (7-18); CALCIUM 7.8 mg/dL (8.5-10.1); CARBON DIOXIDE,CO2 18 mmol/L (21-32); CHLORIDE,CL 105 mmol/L (100-108); CREATININE 0.6 mg/dL (0.6-1.0); EST CRCL DRUG DOSING (CG) 78.58 mL/min; ESTIMATED GFR 101 mL/min (>60); GLUCOSE RANDOM 95 mg/dL (74-106); PHOSPHORUS 1.2 mg/dL (2.5-4.9); POTASSIUM,K 3.8 mmol/L (3.6-5.2); SODIUM,NA 134 mmol/L (140-148)
[2024-05-04 06:17] LABS: ANION GAP 14.8 mmol/L (5.0-14.0)
[2024-05-04] MEDS: FLU (Fluarix Triv) TS24-25(6MOS UP)/PF 45 MCG/0.5 ML Syringe IM ONE (09:23)
[2024-05-04] MEDS: Doxycycline 100 MG Cap PO SCH (16:54)
[2024-05-04] MEDS: Cefdinir 300 MG Cap PO SCH (16:54)
[2024-05-04] MEDS: Sodium Phosphate 15 MMOLE in Sodium Chloride 0.9% 250 ML IV ONE (19:37)
[2024-05-05 05:55] LABS: HEMATOCRIT 22.4 % (34.3-46.0); MEAN CORPUSCULAR HEMOGLOBIN 34.9 pg (31.6-35.5); MEAN CORPUSCULAR HGB CONC 35.7 g/dL (31.6-35.5); MEAN CORPUSCULAR VOLUME 97.8 fL (81.4-99.0); RED BLOOD CELL COUNT 2.29 M/uL (3.77-5.24); WHITE BLOOD CELL COUNT,WBC 13.1 K/uL (3.2-11.0)
[2024-05-05 06:17] LABS: ALBUMIN 1.8 g/dL (3.4-5.0); BLOOD UREA NITROGEN,BUN 25 mg/dL (7-18); CALCIUM 8.2 mg/dL (8.5-10.1); CARBON DIOXIDE,CO2 16 mmol/L (21-32); CHLORIDE,CL 103 mmol/L (100-108); CREATININE 0.6 mg/dL (0.6-1.0); EST CRCL DRUG DOSING (CG) 87.48 mL/min; ESTIMATED GFR 101 mL/min (>60); GLUCOSE RANDOM 94 mg/dL (74-106); PHOSPHORUS 1.1 mg/dL (2.5-4.9); POTASSIUM,K 3.9 mmol/L (3.6-5.2); SODIUM,NA 134 mmol/L (140-148)
[2024-05-05 06:18] LABS: ANION GAP 18.9 mmol/L (5.0-14.0)
[2024-05-05] MEDS: Sodium Chloride 0.9% 1,000 ML IV SCH (19:37)
[2024-05-06 05:25] LABS: HEMOGLOBIN 7.4 g/dL (11.2-15.5); MEAN CORPUSCULAR HEMOGLOBIN 34.6 pg (31.6-35.5); MEAN CORPUSCULAR HGB CONC 35.2 g/dL (31.6-35.5); MEAN CORPUSCULAR VOLUME 98.1 fL (81.4-99.0); RED BLOOD CELL COUNT 2.14 M/uL (3.77-5.24); WHITE BLOOD CELL COUNT,WBC 7.9 K/uL (3.2-11.0)
[2024-05-06 05:44] LABS: C-REACTIVE PROTEIN 3.84 mg/dL (<0.50); CALCIUM 7.8 mg/dL (8.5-10.1); CREATININE 0.5 mg/dL (0.6-1.0); EST CRCL DRUG DOSING (CG) 104.98 mL/min; POTASSIUM,K 3.6 mmol/L (3.6-5.2)
[2024-05-06 06:05] LABS: ANION GAP 16.6 mmol/L (5.0-14.0)
[2024-05-06] MEDS ORDERED: Divalproex Sodium Delayed-Release 250 MG Tab.CR PO ONE (09:30)
[2024-05-06] MEDS: Divalproex Sodium Delayed-Release 125 MG Cap.Sprink PO ONE (09:35)
[2024-05-06] MEDS: Albumin Human 25 GM in Premix Bag 1 BAG IV ONE (09:35)
[2024-05-06] MEDS ORDERED: Haloperidol Lactate 5 MG/ML SDV IVPUSH PRN (10:44)
[2024-05-06] MEDS ORDERED: Bisacodyl 10 MG Supp RECTAL PRN (14:21)
[2024-05-06] MEDS ORDERED: Divalproex Sodium Delayed-Release 125 MG Cap.Sprink PO SCH (17:00)
[2024-05-07 05:20] LABS: HEMATOCRIT 21.2 % (34.3-46.0); HEMOGLOBIN 7.3 g/dL (11.2-15.5); MEAN CORPUSCULAR HEMOGLOBIN 34.6 pg (31.6-35.5); MEAN CORPUSCULAR HGB CONC 34.4 g/dL (31.6-35.5); MEAN CORPUSCULAR VOLUME 100.5 fL (81.4-99.0); RED BLOOD CELL COUNT 2.11 M/uL (3.77-5.24); WHITE BLOOD CELL COUNT,WBC 6.9 K/uL (3.2-11.0)
[2024-05-07 05:36] LABS: CALCIUM 8.2 mg/dL (8.5-10.1); CREATININE 0.5 mg/dL (0.6-1.0); EST CRCL DRUG DOSING (CG) 104.98 mL/min; POTASSIUM,K 3.2 mmol/L (3.6-5.2)
[2024-05-07 05:46] LABS: ANION GAP 16.2 mmol/L (5.0-14.0)
[2024-05-07] MEDS: D5 1/2 NS w/ 20 mEq/L KCl 1,000 ML IV SCH (09:29)
[2024-05-07] MEDS: Albumin Human 25 GM in Premix Bag 1 BAG IV ONE (11:03)
[2024-05-08 08:29] LABS: BASOPHILS ABSOLUTE AUTO 0.05 K/uL (0.00-0.10); BASOPHILS PERCENT AUTO 0.9 % (0.1-1.3); EOSINOPHILS ABSOLUTE AUTO 0.17 K/uL (0.00-0.40); HEMOGLOBIN 7.6 g/dL (11.2-15.5); IMMATURE GRAN ABSOLUTE AUTO 0.06 K/uL (0.00-0.23); IMMATURE GRAN PERCENT AUTO 1.1 % (0.0-0.7); LYMPHOCYTES ABSOLUTE AUTO 1.06 K/uL (0.8-3.3); LYMPHOCYTES PERCENT AUTO 18.8 % (11.4-47.7); MEAN CORPUSCULAR HEMOGLOBIN 34.5 pg (31.6-35.5); MEAN CORPUSCULAR HGB CONC 34.5 g/dL (31.6-35.5); MONOCYTES PERCENT AUTO 10.7 % (3.3-12.6); NEUTROPHILS ABSOLUTE AUTO 3.69 K/uL (1.0-7.6); NEUTROPHILS PERCENT AUTO 65.5 % (40.0-78.1); PLATELET COUNT,PLT 60 K/uL (130-375); WHITE BLOOD CELL COUNT,WBC 5.6 K/uL (3.2-11.0)
[2024-05-08 08:44] LABS: CALCIUM 8.7 mg/dL (8.5-10.1); CREATININE 0.6 mg/dL (0.6-1.0); EST CRCL DRUG DOSING (CG) 87.48 mL/min; POTASSIUM,K 3.3 mmol/L (3.6-5.2)
[2024-05-08 08:45] LABS: ANION GAP 15.3 mmol/L (5.0-14.0)
[2024-05-08] MEDS: Albumin Human 25 GM in Premix Bag 1 BAG IV ONE (13:58)
[2024-05-08] MEDS: Potassium Chloride 10 MEQ in Premix Bag 1 BAG IV SCH (17:51)
[2024-05-09 05:50] LABS: HEMATOCRIT 25.4 % (34.3-46.0); HEMOGLOBIN 8.6 g/dL (11.2-15.5); MEAN CORPUSCULAR HGB CONC 33.9 g/dL (31.6-35.5); RED BLOOD CELL COUNT 2.46 M/uL (3.77-5.24); WHITE BLOOD CELL COUNT,WBC 5.5 K/uL (3.2-11.0)
[2024-05-09 06:09] LABS: MEAN CORPUSCULAR VOLUME 103.3 fL (81.4-99.0)
[2024-05-09 06:21] LABS: A/G RATIO 1.4 (1.2-2.2); ALANINE AMINOTRANSFERASE,ALT 31 U/L (12-78); ALBUMIN 3.4 g/dL (3.4-5.0); ALKALINE PHOSPHATASE 77 U/L (46-116); ANION GAP 12.3 mmol/L (5.0-14.0); ASPARTATE AMNIOTRANSFERASE,AST 52 U/L (15-37); BLOOD UREA NITROGEN,BUN 10 mg/dL (7-18); CALCIUM 9.4 mg/dL (8.5-10.1); CARBON DIOXIDE,CO2 21 mmol/L (21-32); CHLORIDE,CL 108 mmol/L (100-108); CREATININE 0.5 mg/dL (0.6-1.0); EST CRCL DRUG DOSING (CG) 104.98 mL/min; ESTIMATED GFR 106 mL/min (>60); GLUCOSE RANDOM 86 mg/dL (74-106); POTASSIUM,K 4.2 mmol/L (3.6-5.2); PROTEIN TOTAL,TP 5.8 g/dL (6.4-8.2); SODIUM,NA 141 mmol/L (140-148)
[2024-05-09] MEDS ORDERED: Sodium Chloride 0.9% 10 ML Syringe IV PRN (08:17)
[2024-05-09] MEDS: FLUoxetine 20 MG Cap PO SCH (14:13)
[2024-05-10 06:16] LABS: HEMOGLOBIN 8.4 g/dL (11.2-15.5); MEAN CORPUSCULAR HEMOGLOBIN 34.7 pg (31.6-35.5); MEAN CORPUSCULAR HGB CONC 33.6 g/dL (31.6-35.5); MEAN CORPUSCULAR VOLUME 103.3 fL (81.4-99.0); RED BLOOD CELL COUNT 2.42 M/uL (3.77-5.24); WHITE BLOOD CELL COUNT,WBC 7.4 K/uL (3.2-11.0)
[2024-05-10 06:33] LABS: CALCIUM 9.1 mg/dL (8.5-10.1); CREATININE 0.6 mg/dL (0.6-1.0); EST CRCL DRUG DOSING (CG) 87.48 mL/min; MAGNESIUM 1.3 mg/dL (1.8-2.4); POTASSIUM,K 3.7 mmol/L (3.6-5.2)
[2024-05-10 06:34] LABS: ANION GAP 15.7 mmol/L (5.0-14.0)
[2024-05-10] MEDS: Magnesium Sulfate/Water Premix 2 GM in Premix Bag 1 BAG IV SCH (09:23)
[2024-05-10] MEDS: Magnesium Oxide 400 MG Tab PO SCH (09:23)
[2024-05-11 06:54] LABS: CALCIUM 8.7 mg/dL (8.5-10.1); CREATININE 0.5 mg/dL (0.6-1.0); EST CRCL DRUG DOSING (CG) 104.98 mL/min; MAGNESIUM 1.8 mg/dL (1.8-2.4); TSH ULTRASENSITIVE 1.229 uIU/mL (0.358-3.740)
[2024-05-11] MEDS: Sodium Chloride 0.9% 1,000 ML IV SCH ×2 (19:09→23:17)
[2024-05-12 06:28] LABS: ALANINE AMINOTRANSFERASE,ALT 26 U/L (12-78); ALBUMIN 2.4 g/dL (3.4-5.0); ALKALINE PHOSPHATASE 85 U/L (46-116); ASPARTATE AMNIOTRANSFERASE,AST 27 U/L (15-37); BILIRUBIN TOTAL 0.7 mg/dL (0.2-1.0); BLOOD UREA NITROGEN,BUN 12 mg/dL (7-18); CALCIUM 8.3 mg/dL (8.5-10.1); CARBON DIOXIDE,CO2 21 mmol/L (21-32); CHLORIDE,CL 109 mmol/L (100-108); CREATININE 0.5 mg/dL (0.6-1.0); EST CRCL DRUG DOSING (CG) 104.98 mL/min; ESTIMATED GFR 106 mL/min (>60); GLUCOSE RANDOM 88 mg/dL (74-106); MAGNESIUM 1.6 mg/dL (1.8-2.4); POTASSIUM,K 4.1 mmol/L (3.6-5.2); PROTEIN TOTAL,TP 4.8 g/dL (6.4-8.2); SODIUM,NA 140 mmol/L (140-148)
[2024-05-12 06:29] LABS: ANION GAP 14.1 mmol/L (5.0-14.0)
[2024-05-12] MEDS: Magnesium Sulfate/Water Premix 2 GM in Premix Bag 1 BAG IV SCH (10:05)
[2024-05-13] MEDS: Furosemide 20 MG/2 ML VIAL IVPUSH ONE (08:20)
[2024-05-14 06:26] LABS: CALCIUM 8.5 mg/dL (8.5-10.1); CREATININE 0.5 mg/dL (0.6-1.0); EST CRCL DRUG DOSING (CG) 104.98 mL/min; MAGNESIUM 1.8 mg/dL (1.8-2.4); POTASSIUM,K 3.9 mmol/L (3.6-5.2)
[2024-05-14 06:29] LABS: ANION GAP 14.9 mmol/L (5.0-14.0)
[2024-05-15 06:04] LABS: A/G RATIO 0.8 (1.2-2.2); ALANINE AMINOTRANSFERASE,ALT 26 U/L (12-78); ALBUMIN 2.3 g/dL (3.4-5.0); ALKALINE PHOSPHATASE 113 U/L (46-116); ASPARTATE AMNIOTRANSFERASE,AST 25 U/L (15-37); BILIRUBIN TOTAL 0.8 mg/dL (0.2-1.0); BLOOD UREA NITROGEN,BUN 14 mg/dL (7-18); CALCIUM 8.4 mg/dL (8.5-10.1); CARBON DIOXIDE,CO2 24 mmol/L (21-32); CHLORIDE,CL 106 mmol/L (100-108); CREATININE 0.5 mg/dL (0.6-1.0); EST CRCL DRUG DOSING (CG) 104.98 mL/min; ESTIMATED GFR 106 mL/min (>60); GLUCOSE RANDOM 86 mg/dL (74-106); PROTEIN TOTAL,TP 5.1 g/dL (6.4-8.2); SODIUM,NA 139 mmol/L (140-148)
[2024-05-16 11:11] VITALS: BP 110/64; PULSE 88
== END 2024-05-16 14:00 | DRG 871 ==
LOC: JP.ED 16:52 → JP.MS 19:37
PROVIDERS: ADMIT Registered Nurse; ATTEND Hospitalist
PROC: 3E03329 Introduction of Other Anti-infective into Peripheral Vein, Percutaneous Approach (ICD-10-PCS; principal; 2024-05-01)
PROC: 4A033R1 Measurement of Arterial Saturation, Peripheral, Percutaneous Approach (ICD-10-PCS; principal; 2024-05-01)
DX: A41.9 Sepsis, unspecified organism (principal); E43 Unspecified severe protein-calorie malnutrition; E86.1 Hypovolemia; N39.0 Urinary tract infection, site not specified; J18.9 Pneumonia, unspecified organism; G92.8 Other toxic encephalopathy; E87.1 Hypo-osmolality and hyponatremia; R74.02 Elevation of levels of lactic acid dehydrogenase [LDH]; M87.022 Idiopathic aseptic necrosis of left humerus; Z79.51 Long term (current) use of inhaled steroids; N17.9 Acute kidney failure, unspecified; Z79.2 Long term (current) use of antibiotics; N30.00 Acute cystitis without hematuria; Z88.2 Allergy status to sulfonamides; Z66 Do not resuscitate; Z91.040 Latex allergy status; R65.20 Severe sepsis without septic shock; F32.A Depression, unspecified; I95.9 Hypotension, unspecified; E87.6 Hypokalemia; M32.9 Systemic lupus erythematosus, unspecified; M81.0 Age-related osteoporosis without current pathological fracture; L89.159 Pressure ulcer of sacral region, unspecified stage; I25.10 Atherosclerotic heart disease of native coronary artery without angina pectoris; I50.9 Heart failure, unspecified; R59.1 Generalized enlarged lymph nodes; E83.42 Hypomagnesemia; Z88.8 Allergy status to other drugs, medicaments and biological substances; Z79.899 Other long term (current) drug therapy; Z88.1 Allergy status to other antibiotic agents; Z96.649 Presence of unspecified artificial hip joint; Z96.619 Presence of unspecified artificial shoulder joint; Z90.49 Acquired absence of other specified parts of digestive tract; Z88.0 Allergy status to penicillin; Z68.23 Body mass index [BMI] 23.0-23.9, adult
CPT/HCPCS: 36415; 71045 ×2; 80053; 81001; 83605; 83735; 84145; 85025; 85651; 86140; 87040 ×2; 87086; 87088; 87186; 87428; 87651; 93005; 93010; 96365; 96366; 99285 ×2; A9270 ×2; J3480; J7040; 51798; 70450; 70450-26; 80048; 80069; 80076; 82803; 84132; 84443; 85027; 94640; 97110-GO; 97110-GP; 97161-GP; 97165-GO; 99223; 99232; 99233; 99238; J0696; J1650; J1940; J2405; J3475; J3490; J7030; J7620; P9047

== ENCOUNTER 2024-06-24 19:57 | Emergency (ER) | payer MEDICARE ==
[2024-06-24 20:38] LABS: BASOPHILS ABSOLUTE AUTO 0.04 K/uL (0.00-0.10); BASOPHILS PERCENT AUTO 0.3 % (0.1-1.3); EOSINOPHILS ABSOLUTE AUTO 0.21 K/uL (0.00-0.40); EOSINOPHILS PERCENT AUTO 1.7 % (0.0-5.4); HEMATOCRIT 33.1 % (34.3-46.0); HEMOGLOBIN 10.2 g/dL (11.2-15.5); IMMATURE GRAN ABSOLUTE AUTO 0.06 K/uL (0.00-0.23); IMMATURE GRAN PERCENT AUTO 0.5 % (0.0-0.7); LYMPHOCYTES ABSOLUTE AUTO 0.55 K/uL (0.8-3.3); LYMPHOCYTES PERCENT AUTO 4.4 % (11.4-47.7); MEAN CORPUSCULAR HEMOGLOBIN 32.4 pg (31.6-35.5); MEAN CORPUSCULAR HGB CONC 30.8 g/dL (31.6-35.5); MEAN CORPUSCULAR VOLUME 105.1 fL (81.4-99.0); MONOCYTES ABSOLUTE AUTO 0.91 K/uL (0.20-0.90); MONOCYTES PERCENT AUTO 7.3 % (3.3-12.6); NEUTROPHILS ABSOLUTE AUTO 10.75 K/uL (1.0-7.6); NEUTROPHILS PERCENT AUTO 85.8 % (40.0-78.1); PLATELET COUNT,PLT 143 K/uL (130-375); RED BLOOD CELL COUNT 3.15 M/uL (3.77-5.24); WHITE BLOOD CELL COUNT,WBC 12.5 K/uL (3.2-11.0)
[2024-06-24] MEDS: Furosemide 20 MG/2 ML VIAL IVPUSH ONE (20:49)
[2024-06-24 21:06] LABS: A/G RATIO 0.4 (1.2-2.2); ALANINE AMINOTRANSFERASE,ALT 20 U/L (12-78); ALBUMIN 1.7 g/dL (3.4-5.0); ALKALINE PHOSPHATASE 113 U/L (46-116); ANION GAP 11.9 mmol/L (5.0-14.0); ASPARTATE AMNIOTRANSFERASE,AST 23 U/L (15-37); BILIRUBIN TOTAL 0.4 mg/dL (0.2-1.0); BLOOD UREA NITROGEN,BUN 27 mg/dL (7-18); CALCIUM 8.5 mg/dL (8.5-10.1); CARBON DIOXIDE,CO2 32 mmol/L (21-32); CHLORIDE,CL 98 mmol/L (100-108); CREATININE 1.2 mg/dL (0.6-1.0); EST CRCL DRUG DOSING (CG) 43.74 mL/min; ESTIMATED GFR 51 mL/min (>60); GLUCOSE RANDOM 124 mg/dL (74-106); MAGNESIUM 1.8 mg/dL (1.8-2.4); POTASSIUM,K 3.9 mmol/L (3.6-5.2); PRO B-TYPE NATRIUR PEPT,BNPPRO 3102 pg/mL (5-125); PROTEIN TOTAL,TP 5.6 g/dL (6.4-8.2); SODIUM,NA 138 mmol/L (140-148); TROPONIN I HIGH SENSITIVITY 15.5 pg/mL (<=60.3)
[2024-06-24] MEDS: Gabapentin 100 MG Cap PO ONE (21:30)
[2024-06-24 22:24] LABS: APPEARANCE,URINE CLEAR (CLEAR); BILIRUBIN,URINE NEGATIVE (NEGATIVE); COLOR,URINE YELLOW (YELLOW); GLUCOSE,URINE NEGATIVE (NEGATIVE); KETONES,URINE NEGATIVE (NEGATIVE); LEUKOCYTE ESTERASE,URINE NEGATIVE (NEGATIVE); NITRITE,URINE NEGATIVE (NEGATIVE); OCCULT BLOOD,URINE NEGATIVE (NEGATIVE); PROTEIN,URINE NEGATIVE (NEGATIVE); UROBILINOGEN,URINE 0.2 EU/dL (0.2-1.0)
[2024-06-24 22:30] LABS: AMORPHOUS SEDIMENT,URINE NOT SEEN; BACTERIA,URINE NOT SEEN; EPITHELIAL CELLS,URINE RARE; MUCUS,URINE RARE; RBC,URINE 0-5 (0-5); WBC,URINE 0-5 (0-5)
[2024-06-25] MEDS: Sodium Chloride 0.9% 100 ML IV SCH (01:36)
[2024-06-25] MEDS: Iopamidol 755 Mg/ML 100 ML Bottle IV SCH (01:36)
[2024-06-25 02:01] LABS: INR 1.2; PROTHROMBIN TIME 12.1 sec (9.2-10.6)
[2024-06-25] MEDS: Sodium Chloride 0.9% 500 ML IV ONE (02:17)
[2024-06-25 10:42] VITALS: BP 89/53; PULSE 94
[2024-06-25] MEDS: Gabapentin 100 MG Cap PO ONE ×2 (11:06→11:23)
== END 2024-06-25 12:51 ==
LOC: JP.ED 19:57
DX: I50.9 Heart failure, unspecified (principal); K70.31 Alcoholic cirrhosis of liver with ascites; L95.9 Vasculitis limited to the skin, unspecified; R60.1 Generalized edema; J45.909 Unspecified asthma, uncomplicated; Z88.8 Allergy status to other drugs, medicaments and biological substances; Z88.2 Allergy status to sulfonamides; Z91.040 Latex allergy status; Z88.0 Allergy status to penicillin; Z88.1 Allergy status to other antibiotic agents; Z79.51 Long term (current) use of inhaled steroids; Z79.899 Other long term (current) drug therapy; Z87.891 Personal history of nicotine dependence
CPT/HCPCS: 36415; 71046; 71260; 74177; 80053; 81001; 83605; 83690; 83735; 83880; 84484; 85025; 85610; 87040; 93005; 93010; 96374; 99285; 99285-25; A9270-GY; J1940; Q9967

== ENCOUNTER 2025-01-21 14:19 | Inpatient (IN) | payer MEDICARE ==
[2025-01-21 15:16] LABS: BASOPHILS ABSOLUTE AUTO 0.07 K/uL (0.00-0.10); BASOPHILS PERCENT AUTO 0.5 % (0.1-1.3); EOSINOPHILS PERCENT AUTO 0.0 % (0.0-5.4); IMMATURE GRAN ABSOLUTE AUTO 0.07 K/uL (0.00-0.23); IMMATURE GRAN PERCENT AUTO 0.5 % (0.0-0.7); LYMPHOCYTES ABSOLUTE AUTO 0.81 K/uL (0.8-3.3); LYMPHOCYTES PERCENT AUTO 5.6 % (11.4-47.7); MONOCYTES ABSOLUTE AUTO 0.68 K/uL (0.20-0.90); MONOCYTES PERCENT AUTO 4.7 % (3.3-12.6); NEUTROPHILS ABSOLUTE AUTO 12.83 K/uL (1.0-7.6); NEUTROPHILS PERCENT AUTO 88.7 % (40.0-78.1); PLATELET COUNT,PLT 322 K/uL (130-375); RED BLOOD CELL COUNT 2.99 M/uL (3.77-5.24); WHITE BLOOD CELL COUNT,WBC 14.5 K/uL (3.2-11.0)
[2025-01-21] MEDS: fentaNYL 50 MCG/ML SDV IM ONE (15:20)
[2025-01-21 15:21] LABS: EOSINOPHILS ABSOLUTE AUTO 0.00 K/uL (0.00-0.40)
[2025-01-21 15:37] LABS: A/G RATIO 0.6 (1.2-2.2); ALANINE AMINOTRANSFERASE,ALT 20 U/L (12-78); ASPARTATE AMNIOTRANSFERASE,AST 33 U/L (15-37); BILIRUBIN TOTAL 0.7 mg/dL (0.2-1.0); BLOOD UREA NITROGEN,BUN 19 mg/dL (7-18); CARBON DIOXIDE,CO2 27 mmol/L (21-32); CHLORIDE,CL 98 mmol/L (100-108); CREATININE 0.8 mg/dL (0.6-1.0); EST CRCL DRUG DOSING (CG) 61.85 mL/min; ESTIMATED GFR 83 mL/min (>60); GLUCOSE RANDOM 105 mg/dL (74-106); POTASSIUM,K 4.1 mmol/L (3.6-5.2); PROTEIN TOTAL,TP 6.1 g/dL (6.4-8.2); SODIUM,NA 136 mmol/L (140-148)
[2025-01-21] MEDS: Aluminum Hydroxide/Magnesium Hydroxide/Simethicone Susp 30 ML Cup PO ONE (17:05)
[2025-01-21 18:56] LABS: APPEARANCE,URINE SLIGHTLY CLOUDY (CLEAR); GLUCOSE,URINE NEGATIVE (NEGATIVE); OCCULT BLOOD,URINE NEGATIVE (NEGATIVE)
[2025-01-21 19:02] LABS: SQUAMOUS EPITHELIAL CELLS,UR FEW /HPF; UROTHELIAL CELLS,URINE RARE /HPF
[2025-01-21] MEDS ORDERED: Albuterol 0.083% 2.5 MG/3 ML Neb Soln NEB PRN (19:31)
[2025-01-21] MEDS ORDERED: Ondansetron 4 MG/2 ML SDV IV PRN (19:31)
[2025-01-21] MEDS ORDERED: Sennosides/Docusate Sodium 50-8.6 MG Tab PO PRN (19:31)
[2025-01-21] MEDS ORDERED: Magnesium Hydroxide 400 MG/5 ML Susp 30 ML Cup PO PRN (19:31)
[2025-01-21] MEDS: Aluminum Hydroxide/Magnesium Hydroxide/Simethicone Susp 30 ML Cup PO PRN (21:28)
[2025-01-22 06:04] LABS: PLATELET COUNT,PLT 252.0 K/uL (130-375); RED BLOOD CELL COUNT 2.64 M/uL (3.77-5.24); WHITE BLOOD CELL COUNT,WBC 10.5 K/uL (3.2-11.0)
[2025-01-22 06:23] LABS: BLOOD UREA NITROGEN,BUN 22.0 mg/dL (7-18); CARBON DIOXIDE,CO2 24.0 mmol/L (21-32); CHLORIDE,CL 102.0 mmol/L (100-108); CREATININE 0.7 mg/dL (0.6-1.0); EST CRCL DRUG DOSING (CG) 65.21 mL/min; ESTIMATED GFR 97.0 mL/min (>60); GLUCOSE RANDOM 79.0 mg/dL (74-106); POTASSIUM,K 3.8 mmol/L (3.6-5.2); SODIUM,NA 137.0 mmol/L (140-148)
[2025-01-22 09:46] LABS: INR 1.2
[2025-01-22] MEDS: Sodium Chloride 0.9% 10 ML Syringe FLUSH ONE (11:11)
[2025-01-22] MEDS: Iopamidol 612 MG/ML 100 ML Bottle IV SCH (11:11)
[2025-01-22] MEDS: Fluticasone NASAL Spray 16 GM Bottle NASBOTH SCH (13:39)
[2025-01-23] MEDS: Ondansetron 4 MG Tab.DIS PO PRN (12:19)
[2025-01-23] MEDS: Albumin Human 25 GM in Premix Bag 1 BAG IV ONE (13:24)
[2025-01-25] MEDS: Lactated Ringers 500 ML IV ONE (00:30)
[2025-01-25] MEDS: Lactated Ringers 1,000 ML IV SCH ×2 (04:16→23:25)
[2025-01-25] MEDS: Lactated Ringers 1,000 ML IV ONE (05:38)
[2025-01-25 06:13] LABS: BASOPHILS ABSOLUTE AUTO 0.05 K/uL (0.00-0.10); BASOPHILS PERCENT AUTO 0.3 % (0.1-1.3); EOSINOPHILS PERCENT AUTO 0.1 % (0.0-5.4); IMMATURE GRAN ABSOLUTE AUTO 0.08 K/uL (0.00-0.23); IMMATURE GRAN PERCENT AUTO 0.6 % (0.0-0.7); LYMPHOCYTES ABSOLUTE AUTO 0.91 K/uL (0.8-3.3); LYMPHOCYTES PERCENT AUTO 6.3 % (11.4-47.7); MONOCYTES ABSOLUTE AUTO 0.82 K/uL (0.20-0.90); MONOCYTES PERCENT AUTO 5.7 % (3.3-12.6); NEUTROPHILS ABSOLUTE AUTO 12.62 K/uL (1.0-7.6); NEUTROPHILS PERCENT AUTO 87.0 % (40.0-78.1); PLATELET COUNT,PLT 217 K/uL (130-375); RED BLOOD CELL COUNT 2.91 M/uL (3.77-5.24); WHITE BLOOD CELL COUNT,WBC 14.5 K/uL (3.2-11.0)
[2025-01-25 06:14] LABS: EOSINOPHILS ABSOLUTE AUTO 0.01 K/uL (0.00-0.40)
[2025-01-25 06:33] LABS: A/G RATIO 0.8 (1.2-2.2); ALANINE AMINOTRANSFERASE,ALT 46 U/L (12-78); ASPARTATE AMNIOTRANSFERASE,AST 146 U/L (15-37); BILIRUBIN TOTAL 0.9 mg/dL (0.2-1.0); BLOOD UREA NITROGEN,BUN 21 mg/dL (7-18); CARBON DIOXIDE,CO2 26 mmol/L (21-32); CHLORIDE,CL 103 mmol/L (100-108); CREATININE 0.9 mg/dL (0.6-1.0); EST CRCL DRUG DOSING (CG) 50.72 mL/min; ESTIMATED GFR 72 mL/min (>60); GLUCOSE RANDOM 105 mg/dL (74-106); POTASSIUM,K 3.5 mmol/L (3.6-5.2); PROTEIN TOTAL,TP 4.6 g/dL (6.4-8.2); SODIUM,NA 136 mmol/L (140-148)
[2025-01-25] MEDS: Albumin Human 25 GM in Premix Bag 1 BAG IV ONE (07:49)
[2025-01-25] MEDS: Potassium Chloride 20 MEQ Tab.ER PO ONE (12:16)
[2025-01-26 06:09] LABS: RED BLOOD CELL COUNT 2.97 M/uL (3.77-5.24); WHITE BLOOD CELL COUNT,WBC 11.9 K/uL (3.2-11.0)
[2025-01-26 06:17] LABS: BLOOD UREA NITROGEN,BUN 24.0 mg/dL (7-18); CARBON DIOXIDE,CO2 22.0 mmol/L (21-32); CHLORIDE,CL 105.0 mmol/L (100-108); CREATININE 0.9 mg/dL (0.6-1.0); EST CRCL DRUG DOSING (CG) 50.72 mL/min; ESTIMATED GFR 72.0 mL/min (>60); GLUCOSE RANDOM 91.0 mg/dL (74-106); POTASSIUM,K 4.2 mmol/L (3.6-5.2); SODIUM,NA 136.0 mmol/L (140-148)
[2025-01-27 05:59] LABS: PLATELET COUNT,PLT 115.0 K/uL (130-375); RED BLOOD CELL COUNT 2.96 M/uL (3.77-5.24); WHITE BLOOD CELL COUNT,WBC 11.7 K/uL (3.2-11.0)
[2025-01-27 06:17] LABS: BLOOD UREA NITROGEN,BUN 28.0 mg/dL (7-18); CARBON DIOXIDE,CO2 24.0 mmol/L (21-32); CHLORIDE,CL 106.0 mmol/L (100-108); CREATININE 0.9 mg/dL (0.6-1.0); EST CRCL DRUG DOSING (CG) 50.72 mL/min; ESTIMATED GFR 72.0 mL/min (>60); GLUCOSE RANDOM 92.0 mg/dL (74-106); POTASSIUM,K 4.0 mmol/L (3.6-5.2); SODIUM,NA 136.0 mmol/L (140-148)
[2025-01-28 06:00] LABS: PLATELET COUNT,PLT 135.0 K/uL (130-375); RED BLOOD CELL COUNT 3.0 M/uL (3.77-5.24); WHITE BLOOD CELL COUNT,WBC 9.8 K/uL (3.2-11.0)
[2025-01-29 05:48] LABS: PLATELET COUNT,PLT 186.0 K/uL (130-375); RED BLOOD CELL COUNT 3.12 M/uL (3.77-5.24); WHITE BLOOD CELL COUNT,WBC 9.2 K/uL (3.2-11.0)
[2025-01-29 06:10] LABS: A/G RATIO 0.8 (1.2-2.2); ALANINE AMINOTRANSFERASE,ALT 22 U/L (12-78); ASPARTATE AMNIOTRANSFERASE,AST 23 U/L (15-37); BILIRUBIN TOTAL 0.6 mg/dL (0.2-1.0); BLOOD UREA NITROGEN,BUN 21 mg/dL (7-18); CARBON DIOXIDE,CO2 24 mmol/L (21-32); CHLORIDE,CL 104 mmol/L (100-108); CREATININE 0.8 mg/dL (0.6-1.0); EST CRCL DRUG DOSING (CG) 57.06 mL/min; ESTIMATED GFR 83 mL/min (>60); GLUCOSE RANDOM 115 mg/dL (74-106); POTASSIUM,K 3.6 mmol/L (3.6-5.2); PROTEIN TOTAL,TP 5.1 g/dL (6.4-8.2); SODIUM,NA 137 mmol/L (140-148)
[2025-01-30 13:09] VITALS: BP 91/69; PULSE 100
== END 2025-01-30 13:05 | DRG 432 ==
LOC: JP.ED 14:19 → JP.MS 18:40 → OBSVTOIN 01-22 10:56 → JP.ICU 01-25 17:38
PROVIDERS: ADMIT Registered Nurse; ATTEND Internal Medicine
PROC: 0W9G3ZZ Drainage of Peritoneal Cavity, Percutaneous Approach (ICD-10-PCS; principal; 2025-01-21)
DX: K70.31 Alcoholic cirrhosis of liver with ascites (principal); E43 Unspecified severe protein-calorie malnutrition; D62 Acute posthemorrhagic anemia; Z88.1 Allergy status to other antibiotic agents; K92.2 Gastrointestinal hemorrhage, unspecified; Z68.1 Body mass index [BMI] 19.9 or less, adult; Z66 Do not resuscitate; E87.6 Hypokalemia; E86.1 Hypovolemia; K21.9 Gastro-esophageal reflux disease without esophagitis; M19.90 Unspecified osteoarthritis, unspecified site; M32.9 Systemic lupus erythematosus, unspecified; J45.909 Unspecified asthma, uncomplicated; M81.0 Age-related osteoporosis without current pathological fracture; Z96.649 Presence of unspecified artificial hip joint; Z96.619 Presence of unspecified artificial shoulder joint; Z87.891 Personal history of nicotine dependence; Z88.8 Allergy status to other drugs, medicaments and biological substances; Z90.49 Acquired absence of other specified parts of digestive tract; Z88.2 Allergy status to sulfonamides; Z91.040 Latex allergy status; Z88.0 Allergy status to penicillin; Z79.899 Other long term (current) drug therapy
CPT/HCPCS: 36415 ×2; 71045 ×2; 74177; 80048; 80053; 81001; 85025; 85027; 85610; 96360; 96372; 99223; 99284; 99285; A9270 ×10; J1650; J2470; J3010; J7030 ×3; 36430; 49083; 82272; 84484; 85018; 86850; 86900; 86901; 86920; 86922; 93005; 93010; 96361; 96374; 97110-GP; 97161-GP; 97162-GP; 97165-GO; 97530-GP; 99232; 99233; 99239; G0378; J2003; J7120; P9016; P9017; P9047; Q0162; Q9967

== ENCOUNTER 2025-02-02 22:35 | Emergency (ER) | payer MEDICARE ==
[2025-02-02 22:50] LABS: BASOPHILS ABSOLUTE AUTO 0.05 K/uL (0.00-0.10); BASOPHILS PERCENT AUTO 0.5 % (0.1-1.3); EOSINOPHILS ABSOLUTE AUTO 0.15 K/uL (0.00-0.40); EOSINOPHILS PERCENT AUTO 1.4 % (0.0-5.4); IMMATURE GRAN ABSOLUTE AUTO 0.04 K/uL (0.00-0.23); IMMATURE GRAN PERCENT AUTO 0.4 % (0.0-0.7); LYMPHOCYTES ABSOLUTE AUTO 1.31 K/uL (0.8-3.3); LYMPHOCYTES PERCENT AUTO 11.8 % (11.4-47.7); MONOCYTES ABSOLUTE AUTO 0.75 K/uL (0.20-0.90); MONOCYTES PERCENT AUTO 6.8 % (3.3-12.6); NEUTROPHILS ABSOLUTE AUTO 8.79 K/uL (1.0-7.6); NEUTROPHILS PERCENT AUTO 79.1 % (40.0-78.1); PLATELET COUNT,PLT 187 K/uL (130-375); RED BLOOD CELL COUNT 3.16 M/uL (3.77-5.24); WHITE BLOOD CELL COUNT,WBC 11.1 K/uL (3.2-11.0)
[2025-02-02] MEDS ORDERED: Potassium Chloride 20 MEQ Tab.ER PO ONE (23:15)
[2025-02-02 23:22] LABS: BLOOD UREA NITROGEN,BUN 22.0 mg/dL (7-18); CARBON DIOXIDE,CO2 29.0 mmol/L (21-32); CHLORIDE,CL 94.0 mmol/L (100-108); CREATININE 1.2 mg/dL (0.6-1.0); EST CRCL DRUG DOSING (CG) 39.51 mL/min; ESTIMATED GFR 51.0 mL/min (>60); GLUCOSE RANDOM 86.0 mg/dL (74-106); SODIUM,NA 134.0 mmol/L (140-148)
[2025-02-02 23:25] LABS: POTASSIUM,K 2.2 mmol/L (3.6-5.2)
[2025-02-02] MEDS: Potassium Chloride 10% 20 MEQ/15 ML Soln 15 ML UD Cup PO ONE (23:34)
[2025-02-02] MEDS: Acetaminophen/oxyCODONE 325-5 MG Tab PO PRN (23:34)
[2025-02-03] MEDS: NS + KCl 20mEq/L 1,000 ML IV SCH (00:03)
[2025-02-03 03:45] VITALS: PULSE 89
[2025-02-03] MEDS ORDERED: Potassium Chloride 10% 20 MEQ/15 ML Soln 15 ML UD Cup PO ONE (06:49)
[2025-02-03] MEDS: Potassium Chloride 10% 20 MEQ/15 ML Soln 15 ML UD Cup PO ONE (07:37)
[2025-02-03 07:45] VITALS: BP 99/61
[2025-02-03] MEDS: Acetaminophen/oxyCODONE 325-5 MG Tab PO ONE (09:35)
== END 2025-02-03 10:56 ==
LOC: JP.ED 22:35
DX: E87.6 Hypokalemia (principal); J45.909 Unspecified asthma, uncomplicated; Z90.49 Acquired absence of other specified parts of digestive tract; Z87.891 Personal history of nicotine dependence; Z88.0 Allergy status to penicillin; Z88.2 Allergy status to sulfonamides; Z88.5 Allergy status to narcotic agent; Z88.8 Allergy status to other drugs, medicaments and biological substances; Z91.040 Latex allergy status; Z79.899 Other long term (current) drug therapy
CPT/HCPCS: 36415; 80048; 84132; 85025; 96365; 96366; 99285; A9270; J3480